=== PATIENT | male | born 1950 | race African-American/Black ===

== ENCOUNTER 2016-07-28 12:01 | Emergency (ER) | payer MEDICAID ==
[~2016-07-28] VITALS: Ht 190.5 cm; Wt 98.0 kg
[2016-07-28 12:12] VITALS: BP 114/60
[2016-07-28] MEDS ORDERED: MORPHINE SULFATE INJ 10 MG/ML DISP.SYRIN ONE (12:31)
[2016-07-28] MEDS: MORPHINE SULFATE INJ 2 MG/ML DISP.SYRIN IM ONE (12:35)
== END 2016-07-28 12:49 | disposition home or self-care (01) ==
LOC: ER 12:03
DX: M25.562 Pain in left knee (principal); G89.29 Other chronic pain; M54.5 Low back pain; Z95.0 Presence of cardiac pacemaker; M19.90 Unspecified osteoarthritis, unspecified site
CPT/HCPCS: A4606; J2270; Z7610

== ENCOUNTER 2016-08-06 18:07 | Emergency (ER) | payer MEDICAID ==
[~2016-08-06] VITALS: Ht 185.4 cm; Wt 117.9 kg
--- NOTE | 2016-08-06 18:07 | NUR ---
bb ry 39 from home: hypoglycemia, unable to obtain reading. glucagon 1 mg in field. nad noted. vss. bs 26 currently, md aware. pt placed in gown and monitor. attempting iv line at this time. continue to monitor.
[2016-08-06] MEDS ORDERED: DEXTROSE 50%-WATER 50 ML DISP.SYRIN ONE (18:23)
[2016-08-06] MEDS ORDERED: DEXTROSE 50%-WATER 50 ML DISP.SYRIN IV ONE (18:30)
[2016-08-06 18:38] LABS: BASOPHILS % (AUTO) 0.7 % (0.0-2.0); EOSINOPHILS # (AUTO) 0.1 /CMM (0.0-0.7); EOSINOPHILS % (AUTO) 1.4 % (0.0-6.0); HEMATOCRIT 44 % (39-51); HEMOGLOBIN 14.5 g/dL (13.5-17.5); LYMPHOCYTES % (AUTO) 16.8 % (20.0-44.0); MEAN CORPUSCULAR HEMOGLOBIN 31 PG (26.0-33.0); MEAN CORPUSCULAR HGB CONC 33 g/dl (31.0-36.0); MEAN CORPUSCULAR VOLUME 93 fL (80-96); MONOCYTES # (AUTO) 0.7 /CMM (0.1-1.30); MONOCYTES % (AUTO) 12.1 % (2.0-12.0); NEUTROPHILS # (AUTO) 4.2 /CMM (1.8-8.9); PLATELET COUNT (AUTO) 136 /CMM (150-450); RDW COEFFICIENT OF VARIATION 15.6 (11.5-15.0); RED BLOOD CELL COUNT(AUTO) 4.71 MIL/uL (4.5-6.0)
--- NOTE | 2016-08-06 18:40 | NUR ---
pt more alert at this time, continue to monitor.
[2016-08-06 18:45] LABS: CALCIUM, SERUM 8.4 mg/dL (8.5-10.1); CREATININE 1.6 mg/dL (0.6-1.3); POTASSIUM 3.4 mmol/L (3.5-5.1)
[2016-08-06 18:51] LABS: ALBUMIN 3.1 g/dL (3.4-5.0); BILIRUBIN,DIRECT 0.2 mg/dL (0.0-0.2); BILIRUBIN,TOTAL 0.4 mg/dL (0.2-1.0); TOTAL PROTEIN, SERUM 7.4 g/dL (6.4-8.2)
--- NOTE | 2016-08-06 19:02 | NUR ---
RECEIVED REPORT FROM YEFRI OCHOA FOR UNRULY. PT NOTED AOX3. FRIEND AT BEDSIDE.
--- NOTE | 2016-08-06 19:15 | NUR ---
DR. KING SPEAKING TO PT REGARDING POC.
[2016-08-06 19:28] LABS: APPEARANCE,URINE Clear (CLEAR); BILIRUBIN,URINE Negative (NEGATIVE); BLOOD, URINE Small Ery/uL (NEGATIVE); COLOR,URINE Yellow (YELLOW); KETONES,URINE Negative (NEGATIVE); LEUKOCYTE ESTERASE ,URINE Negative (NEGATIVE); NITRITE, URINE Negative (NEGATIVE); PH,URINE 5.5 (5.0-8.0); PROTEIN,URINE 30 mg/dl (NEGATIVE); UGLUCOSE 100 MG/DL mg/dL (NEGATIVE); UROBILINOGEN,URINE 0.2 EU/dL (0.2)
[2016-08-06 19:54] LABS: ADD URINE CULTURE NO; BACTERIA,URINE Few /HPF (None Seen); SQUAMOUS EPITHELIAL CELL,UR Few /HPF (None Seen); WBC,URINE 0-2 /HPF (0-3)
[2016-08-06] MEDS ORDERED: HYDROCODONE/APAP 5/325MG 1 EACH TABLET ONE (20:11)
--- NOTE | 2016-08-06 20:28 | NUR ---
IV removed. Catheter intact and site benign. Pressure and 4x4 applied to site. No bleeding noted. Patient discharged to home in stable condition. Written and verbal after care instructions given. Patient verbalizes understanding of instruction. ambulatory with a steady gait
[2016-08-06 20:29] VITALS: BP 155/98
[2016-08-06] MEDS ORDERED: HYDROCODONE/APAP 5/325MG 1 EACH TABLET PO ONE (20:30)
== END 2016-08-06 20:29 | disposition home or self-care (01) ==
LOC: ER 18:09
DX: E11.649 Type 2 diabetes mellitus with hypoglycemia without coma (principal); E03.9 Hypothyroidism, unspecified; E78.00 Pure hypercholesterolemia, unspecified; E11.9 Type 2 diabetes mellitus without complications; I10 Essential (primary) hypertension; B19.20 Unspecified viral hepatitis C without hepatic coma; Z79.4 Long term (current) use of insulin; Z95.0 Presence of cardiac pacemaker
CPT/HCPCS: 36415; 80048; 80076; 81001; 82962; 85025; 93005; 96374; 99285; A4606; Z7610; 81000-TC

== ENCOUNTER 2016-08-26 08:56 | Emergency (ER) | payer MEDICAID ==
[~2016-08-26] VITALS: Ht 190.5 cm; Wt 109.3 kg
[2016-08-26 09:05] VITALS: BP 138/77
== END 2016-08-26 09:20 | disposition home or self-care (01) ==
LOC: ER 08:59
DX: Z76.0 Encounter for issue of repeat prescription (principal); E11.8 Type 2 diabetes mellitus with unspecified complications; E03.9 Hypothyroidism, unspecified; B19.20 Unspecified viral hepatitis C without hepatic coma; I10 Essential (primary) hypertension; Z95.0 Presence of cardiac pacemaker; Z79.4 Long term (current) use of insulin
CPT/HCPCS: A4606; Z7610

== ENCOUNTER 2016-10-21 14:31 | Emergency (ER) | payer MEDICAID ==
[~2016-10-21] VITALS: Ht 182.9 cm; Wt 86.2 kg
[2016-10-21 14:35] VITALS: BP 126/81
== END 2016-10-21 14:54 | disposition home or self-care (01) ==
LOC: ER 14:34
DX: Z76.0 Encounter for issue of repeat prescription (principal); I10 Essential (primary) hypertension; E11.9 Type 2 diabetes mellitus without complications; B19.20 Unspecified viral hepatitis C without hepatic coma; E03.9 Hypothyroidism, unspecified; Z79.4 Long term (current) use of insulin
CPT/HCPCS: A4606; Z7610

== ENCOUNTER 2016-11-30 21:53 | Emergency (ER) | payer MEDICAID ==
[~2016-11-30] VITALS: Ht 190.5 cm; Wt 105.7 kg
--- NOTE | 2016-11-30 22:10 | NUR ---
TO BED 4 AMBULATORY C/O NONRADIATING L SIDED CP WITH SOB X1 DAY. PT AAOX4 NO ACUTE DISTRESS NOTED, RESP EVEN AND UNLABORED. SKIN WARM, NONDIAPHORETIC. PLACE PT ON CARDIAC MONITORING, CONTINUOUS POX. PENDING ER MD WHALEN.
[2016-11-30] MEDS ORDERED: NITROGLYCERIN 0.4 MG/TAB BOTTLE SL ONE (22:30)
[2016-11-30] MEDS ORDERED: NITROGLYCERIN 0.4 MG/TAB BOTTLE ONE (22:35)
--- NOTE | 2016-11-30 22:39 | NUR ---
PT PAIN FREE AT THIS TIME.
[2016-11-30 22:44] LABS: BASOPHILS # (AUTO) 0.1 /CMM (0.0-0.2); BASOPHILS % (AUTO) 1.1 % (0.0-2.0); EOSINOPHILS # (AUTO) 0.2 /CMM (0.0-0.7); EOSINOPHILS % (AUTO) 2.6 % (0.0-6.0); HEMATOCRIT 42 % (39-51); HEMOGLOBIN 13.6 g/dL (13.5-17.5); LYMPHOCYTES # (AUTO) 2.2 /CMM (0.8-4.8); LYMPHOCYTES % (AUTO) 36.2 % (20.0-44.0); MEAN CORPUSCULAR HEMOGLOBIN 32 PG (26.0-33.0); MEAN CORPUSCULAR HGB CONC 32 g/dl (31.0-36.0); MEAN CORPUSCULAR VOLUME 97 fL (80-96); MONOCYTES % (AUTO) 16.6 % (2.0-12.0); NEUTROPHILS # (AUTO) 2.6 /CMM (1.8-8.9); NEUTROPHILS % (AUTO) 43.5 % (43.0-81.0); PLATELET COUNT (AUTO) 121 /CMM (150-450); RDW COEFFICIENT OF VARIATION 17.2 (11.5-15.0); RED BLOOD CELL COUNT(AUTO) 4.33 MIL/uL (4.5-6.0)
[2016-11-30 22:52] LABS: CALCIUM, SERUM 8.3 mg/dL (8.5-10.1); CREATININE 1.4 mg/dL (0.6-1.3); POTASSIUM 3.1 mmol/L (3.5-5.1)
[2016-11-30 22:55] LABS: INR 1.12 (0.87-1.13); PROTHROMBIN TIME 12.1 SECS (9.5-12.7)
[2016-11-30 23:01] LABS: TROPONIN I 0.128 ng/mL (0.00-0.056)
[2016-11-30] MEDS ORDERED: ASPIRIN 325 MG TABLET ONE (23:27)
[2016-11-30] MEDS ORDERED: POTASSIUM CHLORIDE 20 MEQ TAB.PRT.SR PO ONE ×3 (23:27→23:30)
[2016-11-30] MEDS ORDERED: ASPIRIN 325 MG TABLET PO ONE (23:30)
--- NOTE | 2016-11-30 23:44 | NUR ---
REPORT CALLED TO MASTER MECHANICYEFRI CERVANTES. PENDING HOSPITAL ADMISSION.
--- NOTE | 2016-12-01 00:08 | NUR ---
IV removed. Catheter intact and site benign. Pressure and 4x4 applied to site. No bleeding noted. Patient does not wish to proceed with medical care recommended by Dr. Ac). Patient given information related to possible complications, up to and including , which could occur as a result of leaving the hospital at this time. Patient verbalizes understanding of risks involved due to leaving against medical advice. Patient has signed AMA form. pt aaox4 no acute distress noted, resp even and unlabored. pt verbalized all risks explained to pt.
[2016-12-01 00:10] VITALS: BP 169/88
== END 2016-12-01 00:12 | disposition left against medical advice (07) ==
LOC: ER 21:55
DX: I11.0 Hypertensive heart disease with heart failure (principal); I50.9 Heart failure, unspecified; E11.9 Type 2 diabetes mellitus without complications; I21.4 Non-ST elevation (NSTEMI) myocardial infarction; B19.20 Unspecified viral hepatitis C without hepatic coma; E03.9 Hypothyroidism, unspecified; I10 Essential (primary) hypertension; I48.91 Unspecified atrial fibrillation; Z79.4 Long term (current) use of insulin; Z95.0 Presence of cardiac pacemaker; Z53.20 Procedure and treatment not carried out because of patient's decision for unspecified reasons
CPT/HCPCS: 36415; 71010; 80048; 83880; 84484; 85025; 85730; 87081; 93005; 99285; A4606; Z7610

== ENCOUNTER 2017-03-04 19:06 | Emergency (ER) | payer MEDICAID ==
[~2017-03-04] VITALS: Ht 190.5 cm; Wt 105.7 kg
--- NOTE | 2017-03-04 20:14 | NUR ---
PT BB SELF; COUGH, CONGESTION X 3 DAYS. PT ALSO C/O ABDOMINAL PAIN 11/30 PT IS IN NO ACUTE DISTRESS IN BED. PT PLACED ON 2L O2. PT PLACED ON MONITOR WITH V-PACING. PT HAS HIGH BLOOD PRESSURE @ 182/81 WITH PULSE @ 64. AWAITING MD ORDERS.
[2017-03-04 20:20] LABS: BASOPHILS % (AUTO) 0.4 % (0.0-2.0); EOSINOPHILS # (AUTO) 0.1 /CMM (0.0-0.7); EOSINOPHILS % (AUTO) 0.7 % (0.0-6.0); HEMATOCRIT 44 % (39-51); HEMOGLOBIN 14.3 g/dL (13.5-17.5); LYMPHOCYTES # (AUTO) 0.8 /CMM (0.8-4.8); LYMPHOCYTES % (AUTO) 6.9 % (20.0-44.0); MEAN CORPUSCULAR HEMOGLOBIN 32 PG (26.0-33.0); MEAN CORPUSCULAR HGB CONC 33 g/dl (31.0-36.0); MEAN CORPUSCULAR VOLUME 97 fL (80-96); MONOCYTES # (AUTO) 0.5 /CMM (0.1-1.30); MONOCYTES % (AUTO) 4.3 % (2.0-12.0); NEUTROPHILS # (AUTO) 9.7 /CMM (1.8-8.9); NEUTROPHILS % (AUTO) 87.7 % (43.0-81.0); PLATELET COUNT (AUTO) 133 /CMM (150-450); RDW COEFFICIENT OF VARIATION 14.2 (11.5-15.0); RED BLOOD CELL COUNT(AUTO) 4.47 MIL/uL (4.5-6.0); WHITE BLOOD COUNT (AUTO) 11.1 K/uL (4.3-11.0)
[2017-03-04 20:21] LABS: CALCIUM, SERUM 8.6 mg/dL (8.5-10.1); POTASSIUM 3.8 mmol/L (3.5-5.1)
[2017-03-04 20:27] LABS: BILIRUBIN,TOTAL 0.6 mg/dL (0.2-1.0); TOTAL PROTEIN, SERUM 7.1 g/dL (6.4-8.2)
[2017-03-04 20:40] LABS: APPEARANCE,URINE Clear (CLEAR); BILIRUBIN,URINE SMALL (NEGATIVE); BLOOD, URINE Trace-intact Ery/uL (NEGATIVE); COLOR,URINE Dark (YELLOW); KETONES,URINE Negative (NEGATIVE); LEUKOCYTE ESTERASE ,URINE Negative (NEGATIVE); NITRITE, URINE Negative (NEGATIVE); PROTEIN,URINE 30 mg/dl (NEGATIVE); UGLUCOSE Negative (NEGATIVE)
[2017-03-04 21:00] LABS: BACTERIA,URINE None seen /HPF (None Seen); SQUAMOUS EPITHELIAL CELL,UR Few /HPF (None Seen); WBC,URINE 0-2 /HPF (0-3)
[2017-03-04] MEDS ORDERED: ACETAMINOPHEN ES 500 MG TABLET ONE (21:01)
[2017-03-04 21:21] LABS: BAND % (MANUAL) 11 % (0.0-5.0); EOSINOPHILS % (MANUAL) 2 % (0-4); LYMPHOCYTES % (MANUAL) 7 % (16-48); MONOCYTES % (MANUAL) 7 % (0-11.0); NEUTROPHILS % (MANUAL) 73 (42-76)
[2017-03-04] MEDS: ACETAMINOPHEN 325 MG TABLET PO ONE (21:37)
[2017-03-04] MEDS: predniSONE 20 MG TABLET PO ONE (21:37)
[2017-03-04] MEDS ORDERED: predniSONE 20 MG TABLET ONE (21:37)
[2017-03-04] MEDS ORDERED: IPRATROPIUM NEB FS 0.5 MG/2.5 ML AMPUL.NEB ONE (21:52)
[2017-03-04] MEDS ORDERED: ALBUTEROL FS 2.5 MG/3 ML VIAL.NEB ONE (21:52)
[2017-03-04] MEDS: ALBUTEROL FS 2.5 MG/3 ML VIAL.NEB NEB ONE (22:47)
[2017-03-04] MEDS: IPRATROPIUM NEB FS 0.5 MG/2.5 ML AMPUL.NEB NEB ONE (22:47)
[2017-03-04 22:53] VITALS: BP 147/90
[2017-03-04] MEDS ORDERED: ACETAMINOPHEN ES 500 MG TABLET PO ONE (23:00)
[2017-03-08] MEDS ORDERED: ZOLP5TAB2 PO (11:28)
[2017-03-08] MEDS ORDERED: HYDR-552 PO (11:28)
[2017-03-08] MEDS ORDERED: LEVO500T15 PO (11:28)
== END 2017-03-04 22:53 | disposition home or self-care (01) ==
LOC: ER 19:10
DX: R05 Cough (principal); I48.91 Unspecified atrial fibrillation; I10 Essential (primary) hypertension; E11.9 Type 2 diabetes mellitus without complications; E03.9 Hypothyroidism, unspecified; B19.20 Unspecified viral hepatitis C without hepatic coma; E78.00 Pure hypercholesterolemia, unspecified; Z79.82 Long term (current) use of aspirin; Z95.0 Presence of cardiac pacemaker; Z87.891 Personal history of nicotine dependence
CPT/HCPCS: 36415; 71010-TC; 80053-TC; 81000-TC; 85025-TC; A4606; Z7610

== ENCOUNTER 2017-03-06 10:33 | Inpatient (IN) | payer MEDICAID ==
[~2017-03-06] VITALS: Ht 190.5 cm; Wt 108.0 kg
[2017-03-06] MEDS ORDERED: IPRATROPIUM NEB FS 0.5 MG/2.5 ML AMPUL.NEB NEB ONE (11:00)
[2017-03-06] MEDS ORDERED: ALBUTEROL FS 2.5 MG/3 ML VIAL.NEB NEB ONE (11:00)
--- NOTE | 2017-03-06 11:00 | NUR ---
pt to er bed 09 c/o sob, chest pain x 3 days. on his 2nd day on antibiotics for bronchitis. gowned and placed on monitor. stable vitals. awaiting md smith.
--- NOTE | 2017-03-06 11:07 | NUR ---
iv line started blood drawn and sent to lab.
[2017-03-06] MEDS ORDERED: ALBUTEROL FS 2.5 MG/3 ML VIAL.NEB ONE (11:11)
[2017-03-06] MEDS ORDERED: IPRATROPIUM NEB FS 0.5 MG/2.5 ML AMPUL.NEB ONE (11:11)
[2017-03-06 11:15] LABS: BASOPHILS # (AUTO) 0.1 /CMM (0.0-0.2); BASOPHILS % (AUTO) 0.5 % (0.0-2.0); EOSINOPHILS % (AUTO) 0.1 % (0.0-6.0); HEMATOCRIT 44 % (39-51); HEMOGLOBIN 14.4 g/dL (13.5-17.5); LYMPHOCYTES # (AUTO) 0.5 /CMM (0.8-4.8); LYMPHOCYTES % (AUTO) 3.6 % (20.0-44.0); MEAN CORPUSCULAR HEMOGLOBIN 32 PG (26.0-33.0); MEAN CORPUSCULAR HGB CONC 33 g/dl (31.0-36.0); MEAN CORPUSCULAR VOLUME 97 fL (80-96); MONOCYTES # (AUTO) 0.2 /CMM (0.1-1.30); MONOCYTES % (AUTO) 1.4 % (2.0-12.0); NEUTROPHILS # (AUTO) 12.4 /CMM (1.8-8.9); NEUTROPHILS % (AUTO) 94.4 % (43.0-81.0); PLATELET COUNT (AUTO) 100 /CMM (150-450); RDW COEFFICIENT OF VARIATION 14.6 (11.5-15.0); RED BLOOD CELL COUNT(AUTO) 4.51 MIL/uL (4.5-6.0); WHITE BLOOD COUNT (AUTO) 13.2 K/uL (4.3-11.0)
--- NOTE | 2017-03-06 11:15 | NUR ---
rt at bedside for breathing treatment.
[2017-03-06 11:27] LABS: CREATININE 2.2 mg/dL (0.6-1.3)
[2017-03-06 11:28] LABS: INR 1.3 (0.87-1.13); PROTHROMBIN TIME 13.5 SECS (9.5-12.7)
[2017-03-06 11:32] LABS: TROPONIN I 0.078 ng/mL (0.00-0.056)
[2017-03-06 11:40] LABS: ALBUMIN 2.6 g/dL (3.4-5.0); BILIRUBIN,DIRECT 0.9 mg/dL (0.0-0.2); BILIRUBIN,TOTAL 1.2 mg/dL (0.2-1.0)
[2017-03-06] MEDS ORDERED: LEVO150T8 PO (11:59)
[2017-03-06] MEDS ORDERED: ASPI-991 PO (11:59)
[2017-03-06] MEDS ORDERED: CARB200T8 PO (11:59)
[2017-03-06] MEDS ORDERED: LISI40TA4 PO (11:59)
[2017-03-06] MEDS ORDERED: TRAZ-147 PO (11:59)
[2017-03-06] MEDS ORDERED: NPH,100V SQ (11:59)
[2017-03-06] MEDS ORDERED: CARV25TA2 PO (11:59)
[2017-03-06] MEDS ORDERED: POTA20TA83 PO (11:59)
[2017-03-06] MEDS ORDERED: HYDR25TA4 PO (11:59)
[2017-03-06] MEDS ORDERED: CEFTRIAXONE 1GM BAG (ER ONLY) 1 GM/50 ML PIGGYBACK IV ONE (12:00)
[2017-03-06] MEDS ORDERED: ASPIRIN 325 MG TABLET PO ONE (12:00)
[2017-03-06] MEDS ORDERED: CEFTRIAXONE 1GM BAG (ER ONLY) 50 ML IV ONE (12:02)
[2017-03-06] MEDS ORDERED: ASPIRIN 325 MG TABLET ONE (12:02)
[2017-03-06] MEDS ORDERED: FUROSEMIDE 40 MG/4 ML VIAL ONE (12:05)
--- NOTE | 2017-03-06 12:22 | NUR ---
tech at bedside for blood culture draw.
[2017-03-06] MEDS ORDERED: FUROSEMIDE 40 MG/4 ML VIAL IV ONE (12:30)
--- NOTE | 2017-03-06 12:56 | NUR ---
CALLED DR SIMMONS FOR PANEL
--- NOTE | 2017-03-06 13:01 | NUR ---
TELE 314-2
--- NOTE | 2017-03-06 13:20 | NUR ---
report given to mundo. pt awaiting transfer to floor.
--- NOTE | 2017-03-06 13:50 | NUR ---
TELE ADMIT FROM ER AFTER REPORT RECEIVED FROM TD ASIF. PATIENT ORIENTED TO PRIMARY RN, UNIT, ROOM, AND UNIT POLICIES REGARDING PATIENT CARE AND VISITING HOURS. PATIENT NOW ON CONTINUOUS TELEMETRY MONITORING; READING ON ARRIVAL IS VPACE 60. PATIENT PLACED ON BEDSIDE OXYGEN, WEIGHED BY BEDSCALE AND ENCOURAGED TO CALL IF THEY NEED ANYTHING. ALL QUESTIONS AND CONCERNS ADDRESSED, PATIENT VERBALIZED UNDERSTANDING.
[2017-03-06] MEDS ORDERED: ZOLPIDEM TARTRATE 5 MG TABLET PO PRN (14:00)
[2017-03-06] MEDS ORDERED: Z GUARD REMEDY 2 OZ OINT TP PRN (14:00)
[2017-03-06] MEDS ORDERED: MAGNESIUM HYDROXIDE 30 ML UDC PO PRN (14:00)
[2017-03-06] MEDS ORDERED: ONDANSETRON HCL/PF 4 MG/2 ML VIAL IVP PRN (14:00)
[2017-03-06] MEDS ORDERED: DEXTROSE 50%-WATER 50 ML DISP.SYRIN IV PRN (14:00)
[2017-03-06] MEDS ORDERED: ACETAMINOPHEN 325 MG TABLET PO PRN (14:00)
[2017-03-06] MEDS ORDERED: MAG HYDROX/AL HYDROX/SIMETH 30 ML UDC PO PRN (14:00)
[2017-03-06] MEDS ORDERED: ALBUTEROL SULFATE 8 GM HFA.AER.AD IH PRN (14:00)
[2017-03-06 16:00] VITALS: BP 127/73
[2017-03-06] MEDS: CARBAMAZEPINE 200 MG TABLET PO SCH (17:02)
[2017-03-06] MEDS: BLOOD SUGAR DIAGNOSTIC 1 EACH STRIP VI SCH ×2 (17:05→21:28)
[2017-03-06] MEDS: INSULIN REGULAR, HUMAN 100 UNIT/ML 3 ML VIAL SQ PRN (17:05)
--- NOTE | 2017-03-06 18:53 | NUR ---
CHANGE OF SHIFT REPORT PT RESTING COMFORTABLY IN BED. NO S/S OR C/O PAIN OR DISTRESS NOTED. SIDE RAILS UP X2. CALL LIGHT LEFT WITHIN REACH. PT KEPT CLEAN, DRY, AND COMFORTABLE. NO SIGNIFICANT CHANGES SINCE ADMISSION. WILL GIVE REPORT TO NAHUN ASIF.
[2017-03-06 20:00] VITALS: BP 107/58
--- NOTE | 2017-03-06 20:00 | NUR ---
RN NOTES PATIENT IN BED, ON HIGH FOWLERS, WITH EPISODES OF SOB ON EXERTION, TOLERATING ROOM AIR AT THIS TIME, IRB925%. O2 VIA NC AT 2LPM IS AVAILABLE WHEN NEEDED. PATIENT KNOWS WHEN TO PUT IT ON. ALERT AND ORIENTED X4, DENIES ANY PAIN AT THIS TIME, ABDOMEN SOFT AND NON-TENDER, ACTIVE BOWEL SOUNDS, LEFT WRIST SALINE LOCK IS PATENT AND SECURED WITH DRESSING. PATIENT RECEIVED DIURETICS FROM AM SHIFT AND HAS BEEN VOIDING VIA URINAL. UNSTEADY GAIT, PREFERS TO STAY IN BED DUE TO SOB ON EXERTION, NEEDS ATTENDED, CALL LIGHT WITHIN REACH.
[2017-03-06] MEDS ORDERED: ENOXAPARIN SODIUM 40 MG/0.4 ML DISP.SYRIN SQ SCH (21:00)
[2017-03-06] MEDS: TRAZODONE 50 MG TABLET PO SCH (21:27)
[2017-03-06] MEDS: FUROSEMIDE 40 MG/4 ML VIAL IV SCH (21:27)
[2017-03-06] MEDS: *INSULIN REGULAR(HUMULIN R)HUM 100 UNIT/ML VIAL SQ PRN (21:40)
[2017-03-07] VITALS: BP 118/73
[2017-03-07 04:00] VITALS: BP 121/53
[2017-03-07] MEDS: BLOOD SUGAR DIAGNOSTIC 1 EACH STRIP VI SCH ×4 (06:35→22:17)
[2017-03-07] MEDS: INSULIN REGULAR, HUMAN 100 UNIT/ML 3 ML VIAL SQ PRN ×3 (06:39→17:41)
[2017-03-07 06:50] VITALS: BP 121/55
[2017-03-07 07:28] LABS: BASOPHILS % (AUTO) 0.1 % (0.0-2.0); EOSINOPHILS % (AUTO) 0.1 % (0.0-6.0); HEMATOCRIT 40 % (39-51); HEMOGLOBIN 12.9 g/dL (13.5-17.5); LYMPHOCYTES % (AUTO) 5.6 % (20.0-44.0); MEAN CORPUSCULAR HEMOGLOBIN 32 PG (26.0-33.0); MEAN CORPUSCULAR HGB CONC 33 g/dl (31.0-36.0); MEAN CORPUSCULAR VOLUME 98 fL (80-96); MONOCYTES # (AUTO) 0.7 /CMM (0.1-1.30); MONOCYTES % (AUTO) 4.3 % (2.0-12.0); NEUTROPHILS # (AUTO) 15.6 /CMM (1.8-8.9); NEUTROPHILS % (AUTO) 89.9 % (43.0-81.0); PLATELET COUNT (AUTO) 102 /CMM (150-450); RDW COEFFICIENT OF VARIATION 15.5 (11.5-15.0); RED BLOOD CELL COUNT(AUTO) 4.02 MIL/uL (4.5-6.0); WHITE BLOOD COUNT (AUTO) 17.3 K/uL (4.3-11.0)
[2017-03-07 07:55] LABS: CALCIUM, SERUM 8.6 mg/dL (8.5-10.1); MAGNESIUM 1.8 mg/dL (1.8-2.4); PHOSPHORUS 2.9 mg/dL (2.5-4.9); POTASSIUM 3.8 mmol/L (3.5-5.1)
--- NOTE | 2017-03-07 08:00 | NUR ---
GROMMET WORKER NOTES PATIENT IN BED RESTING NO SOB OR ACUTE DISTRESS NOTED. PATIENT ALERT, ORIENTED X3. PERIPHERAL IV INTACT PATENT. PATIENT IN STABLE CONDITION WILL CONTINUE TO MONITOR.
[2017-03-07] MEDS: ASPIRIN EC 81 MG TABLET.DR PO SCH (08:48)
[2017-03-07] MEDS: LEVOTHYROXINE SODIUM 75 MCG TABLET PO SCH (08:48)
[2017-03-07] MEDS: CARBAMAZEPINE 200 MG TABLET PO SCH ×2 (08:48→17:40)
[2017-03-07] MEDS: INSULIN NPH, HUMAN ISOPHANE 100 UNIT/ML VIAL SQ SCH (08:54)
[2017-03-07] MEDS: FUROSEMIDE 40 MG/4 ML VIAL IV SCH ×2 (08:57→20:46)
[2017-03-07] MEDS ORDERED: POTASSIUM CHLORIDE 20 MEQ TAB.PRT.SR PO SCH (09:00)
[2017-03-07] MEDS ORDERED: ALBUTEROL FS 2.5 MG/0.5 ML VIAL.NEB NEB PRN (10:00)
[2017-03-07] MEDS: CEFTRIAXONE 1 G in IV D5W 50 ML IV SCH (12:41)
[2017-03-07] MEDS: ALBUTEROL FS 2.5 MG/3 ML VIAL.NEB NEB PRN ×2 (13:11→19:56)
[2017-03-07] MEDS: HYDROCODONE/APAP 5/325MG 1 EACH TABLET PO PRN ×2 (14:47→20:45)
--- NOTE | 2017-03-07 15:00 | NUR ---
MS RN NOTES PATIENT SEEN AND EVALUATED BY DR. SIMMONS ORDERS NOTED AND CARRIED OUT.
[2017-03-07 16:00] VITALS: BP 116/85
--- NOTE | 2017-03-07 18:46 | NUR ---
MS RN NOTES PATIENT IN BED RESTING NO SOB OR ACUTE DISTRESS NOTED. ALL DUE MEDICATIONS ADMINISTERED. ALL NEEDS MET. PATIENT IN STABLE CONDITION , PERIPHERAL IV INTACT PATENT. WILL ENDORSE TO PM SHIFT UNRULY.
[2017-03-07 20:00] VITALS: BP 160/108
[2017-03-07] MEDS: TRAZODONE 50 MG TABLET PO SCH (22:17)
[2017-03-07] MEDS: *INSULIN REGULAR(HUMULIN R)HUM 100 UNIT/ML VIAL SQ PRN (23:29)
--- NOTE | 2017-03-08 06:42 | NUR ---
MS RN NOTES AWAKE & RESPONSIVE. NOT IN ANY DISTRESS. NO SOB NOTED. DENIES ANY PAIN OR DISCOMFORT AT THIS TIME. WITH IV-HL PATENT & INTACT. MONITORED ACCORDINGLY. CALL LIGHT WITHIN REACH. BED IN LOWEST POSITION. SR UP X 2 FOR SAFETY. WILL ENDORSE TO NEXT SHIFT.
[2017-03-08] MEDS: BLOOD SUGAR DIAGNOSTIC 1 EACH STRIP VI SCH ×2 (06:45→12:29)
--- NOTE | 2017-03-08 07:40 | NUR ---
MS/RN OPENING NOTE PATIENT RECEIVED IN BED ASLEEP IN STABLE CONDITION. EASILY AROUSABLE. A/O X 4. NO SIGNS OF ACUTE DISTRESS. NO COMPLAIN OF PAIN OR DISCOMFORT. ALL NEEDS ATTENDED TO. CALL LIGHT WITHIN REACH. WILL CONTINUE TO MONITOR TO ENSURE SAFETY.
[2017-03-08 08:00] VITALS: BP 152/78
[2017-03-08] MEDS: CARBAMAZEPINE 200 MG TABLET PO SCH (08:23)
[2017-03-08] MEDS: LEVOTHYROXINE SODIUM 75 MCG TABLET PO SCH (08:32)
[2017-03-08] MEDS: ASPIRIN EC 81 MG TABLET.DR PO SCH (08:32)
[2017-03-08] MEDS: INSULIN NPH, HUMAN ISOPHANE 100 UNIT/ML VIAL SQ SCH (08:33)
--- NOTE | 2017-03-08 08:37 | NUR ---
MS/RN SEEN BY DR TSANG PATIENT SEEN BY DR TSANG WITH NEW ORDERS FOR HYDRALAZINE 50 MG PO TID FOR HTN.
[2017-03-08] MEDS: FUROSEMIDE 40 MG/4 ML VIAL IV SCH (08:42)
[2017-03-08] MEDS: HYDROCODONE/APAP 5/325MG 1 EACH TABLET PO PRN ×2 (08:42→12:54)
[2017-03-08] MEDS: hydrALAZINE HCL 50 MG TABLET PO SCH ×2 (09:00→12:29)
[2017-03-08 11:03] LABS: CALCIUM, SERUM 9.1 mg/dL (8.5-10.1); CREATININE 1.7 mg/dL (0.6-1.3); POTASSIUM 4.1 mmol/L (3.5-5.1)
[2017-03-08 11:04] LABS: BASOPHILS % (AUTO) 0.4 % (0.0-2.0); EOSINOPHILS % (AUTO) 0.4 % (0.0-6.0); HEMATOCRIT 44 % (39-51); HEMOGLOBIN 14.4 g/dL (13.5-17.5); LYMPHOCYTES # (AUTO) 1.2 /CMM (0.8-4.8); LYMPHOCYTES % (AUTO) 12.5 % (20.0-44.0); MEAN CORPUSCULAR HEMOGLOBIN 32 PG (26.0-33.0); MEAN CORPUSCULAR HGB CONC 33 g/dl (31.0-36.0); MEAN CORPUSCULAR VOLUME 98 fL (80-96); MONOCYTES # (AUTO) 0.9 /CMM (0.1-1.30); MONOCYTES % (AUTO) 10.2 % (2.0-12.0); NEUTROPHILS % (AUTO) 76.5 % (43.0-81.0); PLATELET COUNT (AUTO) 124 /CMM (150-450); RDW COEFFICIENT OF VARIATION 15.4 (11.5-15.0); RED BLOOD CELL COUNT(AUTO) 4.47 MIL/uL (4.5-6.0); WHITE BLOOD COUNT (AUTO) 9.2 K/uL (4.3-11.0)
[2017-03-08 11:14] LABS: ALBUMIN 2.4 g/dL (3.4-5.0); BILIRUBIN,TOTAL 0.6 mg/dL (0.2-1.0); MAGNESIUM 1.8 mg/dL (1.8-2.4); PHOSPHORUS 4.4 mg/dL (2.5-4.9); TOTAL PROTEIN, SERUM 7.7 g/dL (6.4-8.2)
[2017-03-08 11:20] LABS: THYROID STIMULATING HORMONE 9.195 uIU/mL (0.358-3.74)
[2017-03-08] MEDS ORDERED: HYDR-552 PO (11:28)
[2017-03-08] MEDS ORDERED: LEVO500T15 PO (11:28)
[2017-03-08] MEDS ORDERED: ZOLP5TAB2 PO (11:28)
[2017-03-08] MEDS ORDERED: METOPROLOL SUCCINATE 25 MG TAB.SR.24H PO SCH (11:30)
[2017-03-08 12:29] VITALS: BP 168/89
[2017-03-08] MEDS: CEFTRIAXONE 1 G in IV D5W 50 ML IV SCH (12:29)
[2017-03-08] MEDS: INSULIN REGULAR, HUMAN 100 UNIT/ML 3 ML VIAL SQ PRN (12:54)
[2017-03-08 13:10] LABS: BAND % (MANUAL) 5 % (0.0-5.0); LYMPHOCYTES % (MANUAL) 10 % (16-48); MONOCYTES % (MANUAL) 4 % (0-11.0); NEUTROPHILS % (MANUAL) 81 (42-76)
--- NOTE | 2017-03-08 15:00 | NUR ---
MS/RPG PROGRAMMER ANALYST PATIENT DISCHARGE HOME IN STABLE CONDITION. A/O X 4. NO SIGNS OF ACUTE DISTRESS. NO COMPLAIN OF PAIN OR DISCOMFORT. DISCHARGE INSTRUCTIONS AND EDUCATION PROVIDED, VERBALIZED UNDERSTANDING OF TEACHING. ALSO MADE AWARE TO FOLLOW UP WITH PRIMARY DOCTOR WITHIN A WE[place] AND CONTINUE TO TAKE MEDICATIONS ORDERED. ALL NEEDS ATTENDED TO. IV LINE REMOVED. LEFT IN STABLE CONDITION VIA PRIVATE CAR ACCOMPANIED BY FRIEND
== END 2017-03-08 15:00 | disposition home or self-care (01) | DRG 139 ==
LOC: ER 10:36 → TELE 13:16 → MED 03-07 11:36
PROVIDERS: ADMIT Internal Medicine; ATTEND Internal Medicine
DX: J15.9 Unspecified bacterial pneumonia (principal); I21.4 Non-ST elevation (NSTEMI) myocardial infarction; N17.0 Acute kidney failure with tubular necrosis; I11.0 Hypertensive heart disease with heart failure; I50.9 Heart failure, unspecified; E11.9 Type 2 diabetes mellitus without complications; E03.9 Hypothyroidism, unspecified; J45.909 Unspecified asthma, uncomplicated; F17.210 Nicotine dependence, cigarettes, uncomplicated; E78.5 Hyperlipidemia, unspecified; I48.91 Unspecified atrial fibrillation; Z79.4 Long term (current) use of insulin; Z95.0 Presence of cardiac pacemaker; E66.9 Obesity, unspecified; Z68.29 Body mass index [BMI] 29.0-29.9, adult; Z86.19 Personal history of other infectious and parasitic diseases
CPT/HCPCS: 36415; 71010-TC; 76770-TC; 80048-TC; 80053-TC; 80076-TC; 82962-TC; 83735-TC; 83880; 84100-TC; 84439-TC; 84443-TC; 84484-TC; 85025-TC; 85730-TC; 87040-TC; 87081-TC; 87186-TC; 93307-TC; J0696; J1815; J1940; J7050; J7060

== ENCOUNTER 2017-08-23 22:47 | Emergency (ER) | payer BC, MEDICAID ==
[~2017-08-23] VITALS: Ht 182.9 cm; Wt 90.7 kg
[~2017-08-23 22:47] MED LIST: ASPI-1152 PO; CARB200T8 PO; CARV25TA2 PO; HYDR-552 PO; HYDR25TA4 PO; LEVO150T8 PO; LEVO500T75 PO; NPH,100V SQ; POTA20TA83 PO; TRAZ-214 PO; ZOLP5TAB2 PO
--- NOTE | 2017-08-23 22:54 | NUR ---
PT BB SELF FROM HOME C/O OF ABD PAIN X 3 DAYS. NONRADIATING. +N/D. -V. SKIN WNL. PT IS AAOX4. VSS. NO S/S OF ACUTE DISTRESS NOTED. RESP EVEN AND UNLABORED. PT PLACED ON SOCIAL WORK THERAPIST AND POX. PT SAFETY AND COMFORT MEASURES IN PLACE. BEDSIDE FOR EVAL.
[2017-08-23] MEDS ORDERED: PANTOPRAZOLE 40 MG VIAL ONE (23:08)
[2017-08-23] MEDS ORDERED: KETOROLAC TROMETHAMINE 15 MG/ML VIAL ONE (23:08)
[2017-08-23] MEDS ORDERED: ONDANSETRON HCL/PF 4 MG/2 ML VIAL ONE (23:08)
[2017-08-23] MEDS ORDERED: IV NS 0.9% 1,000 ML BAG IV ONE (23:30)
[2017-08-23] MEDS ORDERED: PANTOPRAZOLE 40 MG VIAL IV ONE (23:30)
[2017-08-23] MEDS ORDERED: KETOROLAC TROMETHAMINE INJ 30 MG/ML VIAL IV ONE (23:30)
[2017-08-23] MEDS ORDERED: ONDANSETRON HCL/PF 4 MG/2 ML VIAL IVP ONE (23:30)
--- NOTE | 2017-08-24 00:03 | NUR ---
UNABLE TO OBTAIN IV ACCESS AT THIS TIME. PER MD FLETCHER, HOLD OF ON IV UNTIL FURTHER NOTICE. NO S/S OF DISTRESS NOTED IN PT.
--- NOTE | 2017-08-24 00:03 | NUR ---
BLOOD SPECIMENS COLLECTED BY PHLEBOTOMY.
[2017-08-24 00:14] LABS: HEMATOCRIT 44 % (39-51); HEMOGLOBIN 14.6 g/dL (13.5-17.5); MEAN CORPUSCULAR HGB CONC 34 g/dl (31.0-36.0); MEAN CORPUSCULAR VOLUME 97 fL (80-96); NEUTROPHILS % (AUTO) 80.2 % (43.0-81.0); PLATELET COUNT (AUTO) 142 /CMM (150-450); RED BLOOD CELL COUNT(AUTO) 4.49 MIL/uL (4.5-6.0); WHITE BLOOD COUNT (AUTO) 10.9 K/uL (4.3-11.0)
[2017-08-24 00:15] LABS: BASOPHILS % (AUTO) 0.1 % (0.0-2.0); EOSINOPHILS % (AUTO) 0.7 % (0.0-6.0); LYMPHOCYTES % (AUTO) 9.1 % (20.0-44.0); MONOCYTES # (AUTO) 1.1 /CMM (0.1-1.30); MONOCYTES % (AUTO) 9.9 % (2.0-12.0); NEUTROPHILS # (AUTO) 8.8 /CMM (1.8-8.9)
[2017-08-24 00:18] LABS: APPEARANCE,URINE CLEAR (CLEAR); BILIRUBIN,URINE 1+ (NEGATIVE); BLOOD, URINE 2+ Ery/uL (NEGATIVE); COLOR,URINE YELLOW (YELLOW); KETONES,URINE TRACE (NEGATIVE); LEUKOCYTE ESTERASE ,URINE NEGATIVE (NEGATIVE); NITRITE, URINE NEGATIVE (NEGATIVE); PROTEIN,URINE 2+ mg/dl (NEGATIVE); UGLUCOSE TRACE mg/dL (NEGATIVE)
[2017-08-24 00:21] LABS: CALCIUM, SERUM 9.4 mg/dL (8.5-10.1); CREATININE 2.3 mg/dL (0.6-1.3); POTASSIUM 4.6 mmol/L (3.5-5.1)
--- NOTE | 2017-08-24 00:24 | NUR ---
PT TO CT
[2017-08-24 00:28] LABS: ALBUMIN 3.6 g/dL (3.4-5.0); BILIRUBIN,DIRECT 0.6 mg/dL (0.0-0.2); BILIRUBIN,TOTAL 1.4 mg/dL (0.2-1.0); TOTAL PROTEIN, SERUM 8.1 g/dL (6.4-8.2)
[2017-08-24 00:36] LABS: BACTERIA,URINE None seen /HPF (None Seen); SQUAMOUS EPITHELIAL CELL,UR Few /HPF (None Seen); WBC,URINE 0-2 /HPF (0-3)
[2017-08-24] MEDS ORDERED: HYDROMORPHONE INJ 2 MG/ML DISP.SYRIN IV ONE (01:00)
[2017-08-24] MEDS ORDERED: IV NS 0.9% 1,000 ML BAG IV ONE (01:00)
[2017-08-24] MEDS ORDERED: HYDROMORPHONE INJ 2 MG/ML DISP.SYRIN ONE (01:27)
--- NOTE | 2017-08-24 01:49 | NUR ---
DR. FLETCHER SPEAKING TO LAWRENCE PRADO REGARDING ADMISSION.
[2017-08-24] MEDS ORDERED: IV NS 0.9% 1,000 ML IV PRN (01:50)
[2017-08-24] MEDS ORDERED: MAGNESIUM HYDROXIDE 30 ML UDC PO PRN (02:00)
[2017-08-24] MEDS ORDERED: ONDANSETRON HCL/PF 4 MG/2 ML VIAL IVP PRN (02:00)
[2017-08-24] MEDS ORDERED: HYDROCODONE/APAP 5/325MG 1 EACH TABLET PO PRN (02:00)
[2017-08-24] MEDS ORDERED: ACETAMINOPHEN 325 MG TABLET PO PRN (02:00)
[2017-08-24] MEDS ORDERED: MAG HYDROX/AL HYDROX/SIMETH 30 ML UDC PO PRN (02:00)
[2017-08-24] MEDS ORDERED: HYDROMORPHONE INJ 2 MG/ML DISP.SYRIN IV PRN (02:00)
[2017-08-24] MEDS ORDERED: Z GUARD REMEDY 2 OZ OINT TP PRN (02:00)
--- NOTE | 2017-08-24 02:58 | NUR ---
IV removed. Catheter intact and site benign. Pressure and 4x4 applied to site. No bleeding noted. Patient does not wish to proceed with medical care recommended by Dr. FLETCHER. Patient given information related to possible complications, up to and including , which could occur as a result of leaving the hospital at this time. Patient verbalizes understanding of risks involved due to leaving against medical advice. Patient has signed AMA form. pt ambulatory with a steady gait with personal cane.
[2017-08-24 03:09] VITALS: BP 137/76
== END 2017-08-24 03:17 | disposition left against medical advice (07) ==
LOC: ER 22:49
DX: K85.90 Acute pancreatitis without necrosis or infection, unspecified (principal); E11.65 Type 2 diabetes mellitus with hyperglycemia; N28.9 Disorder of kidney and ureter, unspecified; F15.10 Other stimulant abuse, uncomplicated; I10 Essential (primary) hypertension; I48.91 Unspecified atrial fibrillation; E03.9 Hypothyroidism, unspecified; E78.00 Pure hypercholesterolemia, unspecified; F17.200 Nicotine dependence, unspecified, uncomplicated; Z95.0 Presence of cardiac pacemaker; Z79.4 Long term (current) use of insulin; Z86.19 Personal history of other infectious and parasitic diseases; Z79.82 Long term (current) use of aspirin
CPT/HCPCS: 36415; 71045; 74176; 80048; 80076; 80305; 81001; 83690; 85025; 96361; 96374; 96375; 99285; A4606; C9113; J1170; J1885; J2405; J7030 ×2; 81000-TC; Z7610

== ENCOUNTER 2017-08-24 13:36 | Inpatient (IN) | payer OTHER, MEDICAID ==
[~2017-08-24] VITALS: Ht 190.5 cm; Wt 94.3 kg
--- NOTE | 2017-08-24 08:00 | NUR ---
MS RN NOTES PATIENT IN BED RESTING NO SOB OR ACUTE DISTRESS NOTED. PERIPHERAL IV INTACT PATENT. PATIENT ALERT, ORIENTED X1 CONFUSED. BED IN LOW LOCKED POSITION. CALL LIGHT WITHIN REACH. SITTER AT BEDSIDE. WILL CONTINUE TO MONITOR. Addendum: 08/24/17 at 1920 by MIREILLE RIGGS RN ERROR WRONG PATIENT CHARTING.
--- NOTE | 2017-08-24 14:00 | NUR ---
AAOX3, CAME TO ER C/O DIFFUSE ABDOMINAL PAIN, PATIENT WAS SEEN HERE THIS AM FOR PANCREATITIS AND SIGNED AMA. RR IS EVEN AND UNLABORED WITH NAD NOTED. SKIN IS WARM AND DRY. AWAITING MD FOR EVAL.
[2017-08-24] MEDS ORDERED: IV NS 0.9% 1,000 ML BAG IV ONE (14:30)
[2017-08-24] MEDS ORDERED: ONDANSETRON HCL/PF 4 MG/2 ML VIAL IVP ONE (14:30)
[2017-08-24 14:57] LABS: BASOPHILS # (AUTO) 0.1 /CMM (0.0-0.2); BASOPHILS % (AUTO) 1.1 % (0.0-2.0); EOSINOPHILS % (AUTO) 0.7 % (0.0-6.0); HEMATOCRIT 40 % (39-51); HEMOGLOBIN 13.8 g/dL (13.5-17.5); LYMPHOCYTES # (AUTO) 0.9 /CMM (0.8-4.8); LYMPHOCYTES % (AUTO) 8.5 % (20.0-44.0); MEAN CORPUSCULAR HGB CONC 34 g/dl (31.0-36.0); MEAN CORPUSCULAR VOLUME 95 fL (80-96); MONOCYTES # (AUTO) 1.1 /CMM (0.1-1.30); MONOCYTES % (AUTO) 9.8 % (2.0-12.0); NEUTROPHILS # (AUTO) 8.8 /CMM (1.8-8.9); NEUTROPHILS % (AUTO) 79.9 % (43.0-81.0); PLATELET COUNT (AUTO) 120 /CMM (150-450); RDW COEFFICIENT OF VARIATION 14.9 (11.5-15.0); RED BLOOD CELL COUNT(AUTO) 4.26 MIL/uL (4.5-6.0)
[2017-08-24 15:07] LABS: CALCIUM, SERUM 8.9 mg/dL (8.5-10.1); POTASSIUM 4.6 mmol/L (3.5-5.1)
[2017-08-24 15:12] LABS: INR 1.15 (0.85-1.15)
[2017-08-24 15:14] LABS: ALBUMIN 3.2 g/dL (3.4-5.0); BILIRUBIN,DIRECT 0.7 mg/dL (0.0-0.2); BILIRUBIN,TOTAL 1.4 mg/dL (0.2-1.0); TOTAL PROTEIN, SERUM 7.5 g/dL (6.4-8.2)
[2017-08-24] MEDS ORDERED: ONDANSETRON HCL/PF 4 MG/2 ML VIAL ONE (15:14)
[2017-08-24] MEDS ORDERED: HYDROMORPHONE INJ 2 MG/ML DISP.SYRIN ONE (15:15)
--- NOTE | 2017-08-24 15:28 | NUR ---
[facility] PAGED, WILMER SCHNEIDER COMIC BOOK ARTIST
[2017-08-24] MEDS ORDERED: HYDROMORPHONE 1 MG/1 ML DISP.SYRIN IV ONE (15:30)
--- NOTE | 2017-08-24 15:30 | NUR ---
CALLED NURSING SUP. FOR MS BED
--- NOTE | 2017-08-24 16:21 | NUR ---
MS 314-2, WILMER SCHNEIDER ADMITTING
[2017-08-24] MEDS ORDERED: MAG HYDROX/AL HYDROX/SIMETH 30 ML UDC PO PRN (16:30)
[2017-08-24] MEDS ORDERED: MAGNESIUM HYDROXIDE 30 ML UDC PO PRN (16:30)
[2017-08-24] MEDS ORDERED: ONDANSETRON HCL/PF 4 MG/2 ML VIAL IVP PRN (16:30)
[2017-08-24] MEDS ORDERED: ACETAMINOPHEN 325 MG TABLET PO PRN (16:30)
[2017-08-24] MEDS ORDERED: Z GUARD REMEDY 2 OZ OINT TP PRN (16:30)
[2017-08-24] MEDS ORDERED: HYDROCODONE/APAP 5/325MG 1 EACH TABLET PO PRN (16:30)
--- NOTE | 2017-08-24 17:36 | NUR ---
REPORT GIVEN TO YEFRI GARZA FOR [facility] MS 314-2
[2017-08-24] MEDS: IV NS 0.9% 1,000 ML IV PRN (18:25)
--- NOTE | 2017-08-24 18:30 | NUR ---
MS RN NOTES RECEIVED PATIENT FROM ER. PATIENT ALERT, ORIENTED X3. NO SOB OR ACUTE DISTRESS NOTED. PERIPHERAL IV INTACT PATENT. PATIENT STARTED ON NS 75ML/HR. PATIENT DENIES ANY PAIN OR DISCOMFORT. PATIENT ORIENTED TO ROOM. CALL LIGHT WITHIN REACH. PATIENT AMBULATORY. WILL ENDORSE CARE TO PM SHIFT.
--- NOTE | 2017-08-24 19:15 | NUR ---
RN OPENING NOTES RECEIVED REPORT FROM MIREILLE. PT ARRIVED FROM THE ER. PT CAME INTO THE ER LAST NIGHT AND LEFT AMA, PT WAS READMITTED TODAY. PT IS ALERT AND ORIENTED. CURRENTLY NO COMPLAINTS OF PAIN, SOB OR DISTRESS AT THIS TIME. PT HAS A LEFT WRIST IV #24 RUNNING NS @75 ML/HR, PT TOLERATING WELL. PT ABLE TO AMBULATE, BUT OFFERED URINAL. ORIENTED THE PATIENT TO THE USE OF THE CALL LIGHT. PT LUNGS ARE CLEAR BILATERALLY. ALL PT BELONGINGS ACCOUNTED FOR AND DOCUMENTED. SAFETY PRECAUTIONS IN PLACE. BED IN LOWEST LOCKED POSITION, X2 SIDE RAILS UP, CALL LIGHT WITHIN REACH. WILL CONTINUE TO MONITOR.
[2017-08-24 20:00] VITALS: BP 129/64
[2017-08-24] MEDS: MORPHINE SULFATE INJ 4 MG/ML DISP.SYRIN IV PRN (21:09)
--- NOTE | 2017-08-24 21:09 | NUR ---
RN NOTES PT COMPLAINED OF ABD PAIN (/). WILL ADMINISTER PRN IV MORPHINE 1MG AND CONTINUE TO MONITOR.
[2017-08-25] MEDS: MORPHINE SULFATE INJ 4 MG/ML DISP.SYRIN IV PRN ×3 (02:53→20:16)
--- NOTE | 2017-08-25 02:53 | NUR ---
RN NOTES PT COMPLAINED OF ABD PAIN (12/31). WILL ADMINISTER PRN IV MORPHINE 1MG AND CONTINUE TO MONITOR.
[2017-08-25 02:54] VITALS: BP 169/79
--- NOTE | 2017-08-25 06:25 | NUR ---
RN CLOSING NOTES PT ALERT AND ORIENTED. PT RESTING IN BED. NO COMPLAINTS OF SOB AT THIS TIME. PT HAS A LEFT WRIST IV #24 RUNNING NS @75 ML/HR, PT TOLERATING WELL. PT ABLE TO AMBULATE, USES URINAL. ALL PATIENT NEEDS MET. SAFETY PRECAUTIONS IN PLACE. BED IN LOWEST LOCKED POSITION, X2 SIDE RAILS UP, CALL LIGHT WITHIN REACH. PER PHARMACY NEED ORDER CLARIFICATION FOR NICODERM 7MG, NICODERM 14MG, AMBIEN SCHEDULED FOR 1800, AND DESYREL (2200). WILL ENDORSE TO DAY SHIFT NURSE FOR CONTINUITY OF CARE.
[2017-08-25 06:41] LABS: BASOPHILS % (AUTO) 0.1 % (0.0-2.0); EOSINOPHILS % (AUTO) 0.5 % (0.0-6.0); HEMATOCRIT 39 % (39-51); HEMOGLOBIN 13.3 g/dL (13.5-17.5); LYMPHOCYTES % (AUTO) 8.8 % (20.0-44.0); MEAN CORPUSCULAR HGB CONC 34 g/dl (31.0-36.0); MEAN CORPUSCULAR VOLUME 96 fL (80-96); MONOCYTES # (AUTO) 1.4 /CMM (0.1-1.30); MONOCYTES % (AUTO) 12.4 % (2.0-12.0); NEUTROPHILS # (AUTO) 8.8 /CMM (1.8-8.9); NEUTROPHILS % (AUTO) 78.2 % (43.0-81.0); PLATELET COUNT (AUTO) 124 /CMM (150-450); RDW COEFFICIENT OF VARIATION 15.4 (11.5-15.0); RED BLOOD CELL COUNT(AUTO) 4.09 MIL/uL (4.5-6.0); WHITE BLOOD COUNT (AUTO) 11.3 K/uL (4.3-11.0)
[2017-08-25 06:53] LABS: CALCIUM, SERUM 8.6 mg/dL (8.5-10.1); CREATININE 1.4 mg/dL (0.6-1.3); MAGNESIUM 1.8 mg/dL (1.8-2.4); PHOSPHORUS 2.3 mg/dL (2.5-4.9); POTASSIUM 4.6 mmol/L (3.5-5.1)
[2017-08-25 06:59] LABS: THYROID STIMULATING HORMONE 8.866 uIU/mL (0.358-3.74)
[2017-08-25] MEDS: LEVOTHYROXINE SODIUM 75 MCG TABLET PO SCH (07:30)
[2017-08-25] MEDS ORDERED: LEVOTHYROXINE SODIUM 150 MCG TABLET PO SCH (07:30)
--- NOTE | 2017-08-25 07:44 | NUR ---
MS RN OPENING NOTES RECEIVED PATIENT IN STABLE CONDITION. IN NO APPARENT DISTRESS. BEDSIDE RAILS ARE UPX2. BED IS LOCKED AND LOWERED. CALL LIGHT IS WITHIN REACH. IV LINE IS INTACT AND PATENT. WILL CONTINUE TO MONITOR.
[2017-08-25 08:16] VITALS: BP 138/69
[2017-08-25] MEDS: PANTOPRAZOLE 40 MG VIAL IV SCH (08:42)
[2017-08-25] MEDS: CARVEDILOL 12.5 MG TABLET PO SCH ×2 (09:00→16:15)
[2017-08-25] MEDS: NICOTINE PATCH (7MG) 7 MG PATCH.TD24 TD SCH (09:00)
[2017-08-25] MEDS: POTASSIUM CHLORIDE 20 MEQ TAB.PRT.SR PO SCH (09:00)
[2017-08-25] MEDS ORDERED: INSULIN NPH, HUMAN ISOPHANE 100 UNIT/ML VIAL SQ SCH (09:00)
[2017-08-25] MEDS: CARBAMAZEPINE 200 MG TABLET PO SCH ×2 (09:00→16:15)
[2017-08-25] MEDS: ASPIRIN EC 81 MG TABLET.DR PO SCH (09:00)
[2017-08-25] MEDS: INSULIN NPH, HUMAN ISOPHANE 100 UNIT/ML CARTRIDGE SQ SCH (09:00)
[2017-08-25] MEDS: HYDROCHLOROTHIAZIDE 25 MG TABLET PO SCH (09:00)
[2017-08-25] MEDS ORDERED: NICOTINE PATCH (14MG) 14 MG PATCH.TD24 TD SCH (09:00)
--- NOTE | 2017-08-25 09:00 | NUR ---
PRN MORPHINE 1MG GIVEN TO PATIENT FOR ABDOMINAL PAIN.
[2017-08-25] MEDS ORDERED: Sodium Phosphate 15 MMOL in IV D5W 250 ML IV ONE (11:00)
--- NOTE | 2017-08-25 14:00 | NUR ---
STARTED A NEW IV ON PATIENT. NEW IV IS ON LEFT ANTECUBITAL #22. PREVIOUS IV DISCONTINUED ON LEFT WRIST #24.
[2017-08-25 16:18] VITALS: BP 129/67
[2017-08-25] MEDS ORDERED: ZOLPIDEM TARTRATE 5 MG TABLET PO SCH (18:00)
--- NOTE | 2017-08-25 18:20 | NUR ---
MS RN CLOSING NOTES PATIENT IS ALERT AND ORIENTED. IN NO APPARENT DISTRESS. BEDSIDE RAILS ARE UPX2. BED IS LOCKED AND LOWERED. CALL LIGHT IS WITHIN REACH. IV LINE IS INTACT AND PATENT. WILL ENDORSE CARE TO SALT PLANT OPERATOR NURSE FOR UNRULY.
[2017-08-25] MEDS ORDERED: MORPHINE SULFATE INJ 4 MG/ML DISP.SYRIN ONE (19:45)
--- NOTE | 2017-08-25 19:50 | NUR ---
MS RN INITIAL NOTE PT IS SITTING UP ON SIDE OF THE BED, A/O X4 ABLE TO MAKE NEEDS KNOWN. NO SIGNS OF SOB OR DISTRESS, BREATHING EVENLY AND UNLABORED ON RA. IV ACCESS IS INTACT AND PATENT. BED IS IN LOW AND LOCKED POSITION, CALL LIGHT WITHIN REACH. WILL ENDORSE TO DAYSHIFT
[2017-08-25 20:00] VITALS: BP 142/74
[2017-08-25] MEDS: IV NS 0.9% 1,000 ML IV PRN (20:17)
[2017-08-25] MEDS: TRAZODONE 50 MG TABLET PO SCH (21:22)
[2017-08-26] MEDS ORDERED: MORPHINE SULFATE INJ 4 MG/ML DISP.SYRIN ONE (02:05)
[2017-08-26] MEDS: MORPHINE SULFATE INJ 4 MG/ML DISP.SYRIN IV PRN (02:19)
--- NOTE | 2017-08-26 06:20 | NUR ---
PT IS IN BED RESTING. NO SIGNS OF SOB OR DISTRESS, BREATHING EVNELY AND UNLABORED. IV ACCESS IS INTACT AND PATENT. DENIES PAIN AT THIS TIME. NO ACUTE CHANGES THROUGHOUT THE SHIFT. ALL NEEDS WERE ANTICIPATED AND MET. BED IS IN LOW AND LOCKED POSITION, CALL LIGHT WITHIN REACH. WILL ENDORSE TO DAYSHIFT
[2017-08-26 06:36] LABS: CALCIUM, SERUM 8.9 mg/dL (8.5-10.1); CREATININE 1.1 mg/dL (0.6-1.3); MAGNESIUM 1.9 mg/dL (1.8-2.4); PHOSPHORUS 2.2 mg/dL (2.5-4.9); POTASSIUM 4.6 mmol/L (3.5-5.1)
[2017-08-26 06:39] LABS: BASOPHILS % (AUTO) 0.1 % (0.0-2.0); EOSINOPHILS % (AUTO) 0.3 % (0.0-6.0); HEMATOCRIT 38 % (39-51); HEMOGLOBIN 12.7 g/dL (13.5-17.5); MEAN CORPUSCULAR HGB CONC 34 g/dl (31.0-36.0); MEAN CORPUSCULAR VOLUME 96 fL (80-96); MONOCYTES # (AUTO) 1.1 /CMM (0.1-1.30); NEUTROPHILS # (AUTO) 6.4 /CMM (1.8-8.9); NEUTROPHILS % (AUTO) 74.6 % (43.0-81.0); PLATELET COUNT (AUTO) 138 /CMM (150-450); RDW COEFFICIENT OF VARIATION 15.3 (11.5-15.0); RED BLOOD CELL COUNT(AUTO) 3.91 MIL/uL (4.5-6.0); WHITE BLOOD COUNT (AUTO) 8.6 K/uL (4.3-11.0)
[2017-08-26] MEDS: LEVOTHYROXINE SODIUM 75 MCG TABLET PO SCH (07:25)
[2017-08-26 08:00] VITALS: BP 161/76
[2017-08-26] MEDS: HYDROCHLOROTHIAZIDE 25 MG TABLET PO SCH (08:40)
[2017-08-26] MEDS: ASPIRIN EC 81 MG TABLET.DR PO SCH (08:40)
[2017-08-26] MEDS: CARVEDILOL 12.5 MG TABLET PO SCH ×2 (08:40→16:36)
[2017-08-26] MEDS: CARBAMAZEPINE 200 MG TABLET PO SCH ×2 (08:41→16:36)
[2017-08-26] MEDS: POTASSIUM CHLORIDE 20 MEQ TAB.PRT.SR PO SCH (08:41)
[2017-08-26] MEDS: NICOTINE PATCH (7MG) 7 MG PATCH.TD24 TD SCH (08:41)
[2017-08-26] MEDS: PANTOPRAZOLE 40 MG VIAL IV SCH (08:48)
[2017-08-26] MEDS: INSULIN NPH, HUMAN ISOPHANE 100 UNIT/ML CARTRIDGE SQ SCH (08:58)
[2017-08-26] MEDS ORDERED: Sodium Phosphate 15 MMOL in IV D5W 250 ML IV ONE (09:30)
[2017-08-26] MEDS ORDERED: MORPHINE SULFATE INJ 4 MG/ML DISP.SYRIN IV PRN (10:30)
[2017-08-26 11:11] LABS: APPEARANCE,URINE CLEAR (CLEAR); BILIRUBIN,URINE 1+ (NEGATIVE); BLOOD, URINE NEGATIVE Ery/uL (NEGATIVE); COLOR,URINE DARK YELLO (YELLOW); KETONES,URINE 1+ (NEGATIVE); LEUKOCYTE ESTERASE ,URINE NEGATIVE (NEGATIVE); NITRITE, URINE NEGATIVE (NEGATIVE); PROTEIN,URINE TRACE mg/dl (NEGATIVE); UGLUCOSE 1+ mg/dL (NEGATIVE)
[2017-08-26 11:35] LABS: BACTERIA,URINE Rare /HPF (None Seen); SQUAMOUS EPITHELIAL CELL,UR Rare /HPF (None Seen); WBC,URINE 0-2 /HPF (0-3)
[2017-08-26 11:36] LABS: SPERM,URINE Few /HPF (None Seen)
[2017-08-26 16:00] VITALS: BP 161/76
--- NOTE | 2017-08-26 18:40 | NUR ---
MS RN CLOSING NOTES PATIENT IS IN STABLE CONDITION. IN NO APPARENT DISTRESS. NEW IV STARTED ON LEFT HAND #22. CALL LIGHT IS WITHIN REACH. ALL NEEDS WERE MET. IV LINE IS INTACT AND PATENT. BEDSIDE RAILS ARE UPX2. BED IS LOCKED AND LOWERED. WILL ENDORSE CARE TO COIL TIER NURSE FOR UNRULY.
--- NOTE | 2017-08-26 19:40 | NUR ---
MS RN INITIAL NOTE PT IS SITTING UP ON SIDE OF THE BED, WITH FRIEND AT BEDSIDE. A/O X4 ABLE TO MAKE NEEDS KNOWN. NO SIGNS OF SOB OR DISTRESS, BREATHING EVENLY AND UNLABORED ON RA. IV ACCESS IS INTACT AND PATENT. BED IS IN LOW AND LOCKED POSITION, CALL LIGHT WITHIN REACH. WILL CONTINUE TO MONITOR PT
[2017-08-26 20:00] VITALS: BP 143/77
[2017-08-26] MEDS: TRAZODONE 50 MG TABLET PO SCH (22:00)
--- NOTE | 2017-08-27 06:37 | NUR ---
MS RN NOTE PT IS IN BED RESTING. NO SIGNS OF SOB OR DISTRESS, BREATHING EVENLY AND UNLABORED. IV ACCESS IS INTACT AND PATENT. DENIES PAIN AT THIS TIME. NO ACUTE CHANGES THROUGHOUT THE SHIFT. ALL NEEDS WERE ANTICIPATED AND MET. BED IS IN LOW AND LOCKED POSITION, CALL LIGHT WITHIN REACH. WILL ENDORSE TO DAYSHIFT
[2017-08-27 08:00] VITALS: BP 158/79
--- NOTE | 2017-08-27 08:00 | NUR ---
m/s medical biller coder: initial assessment received pt in bed awake, a/ox4. ambulatory. tolerated clear liquid diet. no c/o abdominal pain, n/v. pt wants to go home. instructed to call for assistance. will monitor.
[2017-08-27 08:27] VITALS: BP 158/79
[2017-08-27] MEDS: HYDROCHLOROTHIAZIDE 25 MG TABLET PO SCH (08:27)
[2017-08-27] MEDS: ASPIRIN EC 81 MG TABLET.DR PO SCH (08:27)
[2017-08-27] MEDS: CARVEDILOL 12.5 MG TABLET PO SCH (08:27)
[2017-08-27] MEDS: POTASSIUM CHLORIDE 20 MEQ TAB.PRT.SR PO SCH (08:27)
[2017-08-27] MEDS: LEVOTHYROXINE SODIUM 75 MCG TABLET PO SCH (08:28)
[2017-08-27] MEDS: NICOTINE PATCH (7MG) 7 MG PATCH.TD24 TD SCH (08:28)
[2017-08-27] MEDS: CARBAMAZEPINE 200 MG TABLET PO SCH (08:31)
--- NOTE | 2017-08-27 08:40 | NUR ---
m/s driftman: notes pt wants to go home and wants his h/l remove now. h/l removed with tip intact with no bleeding, no redness, and no swelling noted. awaiting for md to make rounds. pt aware.
[2017-08-27] MEDS: INSULIN NPH, HUMAN ISOPHANE 100 UNIT/ML CARTRIDGE SQ SCH (08:46)
[2017-08-27] MEDS: PANTOPRAZOLE 40 MG VIAL IV SCH (08:46)
--- NOTE | 2017-08-27 10:00 | NUR ---
m/s automotive airconditioning mechanic: notes pt tolerated regular diet. natalia (mold cleaner) here and made aware.
--- NOTE | 2017-08-27 10:43 | NUR ---
m/s production mechanic: md visit seen and examined by natalia (enrico) with order to d'c pt with Discharge instructions <1. DC home, 2. f/u with PCP [place] [facility], 3. f/u with pain resource specialist teacher as scheduled, 4. cont nicotine patches/smoking cessation. order acknowledged.
--- NOTE | 2017-08-27 10:50 | NUR ---
m/s wringer and setter: d'c instructions discharged instructions given to pt and verbalized understanding. pt called his friend to pick him up.
--- NOTE | 2017-08-27 11:00 | NUR ---
m/s test director: discharged discharged home in stable condition with all belongings/valuables accompanied by friend via private car.
[2017-08-27] MEDS ORDERED: K PHOS NEUTRAL 250 MG TABLET PO ONE (11:30)
== END 2017-08-27 11:00 | disposition home or self-care (01) | DRG 438 ==
LOC: ER 13:37 → MED 16:38
PROVIDERS: ADMIT Registered Nurse; ATTEND Registered Nurse
DX: K85.90 Acute pancreatitis without necrosis or infection, unspecified (principal); N17.0 Acute kidney failure with tubular necrosis; I50.32 Chronic diastolic (congestive) heart failure; E44.1 Mild protein-calorie malnutrition; I13.0 Hypertensive heart and chronic kidney disease with heart failure and stage 1 through stage 4 chronic kidney disease, or unspecified chronic kidney disease; K86.1 Other chronic pancreatitis; G89.4 Chronic pain syndrome; E86.9 Volume depletion, unspecified; E11.22 Type 2 diabetes mellitus with diabetic chronic kidney disease; N18.9 Chronic kidney disease, unspecified; R74.0 Nonspecific elevation of levels of transaminase and lactic acid dehydrogenase [LDH]; E03.9 Hypothyroidism, unspecified; E78.5 Hyperlipidemia, unspecified; Z95.0 Presence of cardiac pacemaker; Z86.19 Personal history of other infectious and parasitic diseases; Z71.6 Tobacco abuse counseling; M79.2 Neuralgia and neuritis, unspecified; Z68.26 Body mass index [BMI] 26.0-26.9, adult; F17.210 Nicotine dependence, cigarettes, uncomplicated; E83.39 Other disorders of phosphorus metabolism; Z79.4 Long term (current) use of insulin
CPT/HCPCS: 36415; 80048-TC; 80061-TC; 80076-TC; 81000-TC; 82962-TC; 83690-TC; 83735-TC; 84100-TC; 84443-TC; 85025-TC; 85730-TC; 87081-TC; 87086-TC; A4606; A9563; C9113; J1170; J1815; J2270; J2405; J7030; J7060; Z7610

== ENCOUNTER 2017-11-26 01:14 | Emergency (ER) | payer MEDICAID, OTHER ==
[~2017-11-26] VITALS: Ht 190.5 cm; Wt 90.7 kg
[~2017-11-26 01:14] MED LIST changes: -LEVO500T75 PO; -ZOLP5TAB2 PO
[2017-11-26 01:16] VITALS: BP 171/83
== END 2017-11-26 01:33 ==
LOC: ER 01:15
DX: Z02.89 Encounter for other administrative examinations (principal); E11.9 Type 2 diabetes mellitus without complications; I10 Essential (primary) hypertension; E03.9 Hypothyroidism, unspecified; F17.200 Nicotine dependence, unspecified, uncomplicated; E78.00 Pure hypercholesterolemia, unspecified; Z95.0 Presence of cardiac pacemaker; Z86.19 Personal history of other infectious and parasitic diseases; Z79.4 Long term (current) use of insulin; Z79.82 Long term (current) use of aspirin; Z79.899 Other long term (current) drug therapy
CPT/HCPCS: 99283; A4606; Z7610

== ENCOUNTER 2018-01-23 18:42 | Emergency (ER) | payer OTHER, MEDICAID ==
[~2018-01-23] VITALS: Ht 190.5 cm; Wt 93.0 kg
[2018-01-23] MEDS ORDERED: DEXTROSE 50%-WATER 50 ML DISP.SYRIN ONE (18:57)
--- NOTE | 2018-01-23 19:02 | NUR ---
DR MENG MADE AWARE OF RECENT BLOOD SUGAR. D50 GIVEN IVP PPER ERMD VERBAL ORDER.
[2018-01-23 19:03] LABS: BASOPHILS # (AUTO) 0.1 /CMM (0.0-0.2); BASOPHILS % (AUTO) 1.3 % (0.0-2.0); EOSINOPHILS % (AUTO) 1.9 % (0.0-6.0); HEMATOCRIT 40 % (39-51); HEMOGLOBIN 13.2 g/dL (13.5-17.5); LYMPHOCYTES # (AUTO) 1.7 /CMM (0.8-4.8); LYMPHOCYTES % (AUTO) 32.6 % (20.0-44.0); MEAN CORPUSCULAR HGB CONC 33 g/dl (31.0-36.0); MEAN CORPUSCULAR VOLUME 98 fL (80-96); MONOCYTES # (AUTO) 0.6 /CMM (0.1-1.30); MONOCYTES % (AUTO) 10.9 % (2.0-12.0); NEUTROPHILS # (AUTO) 2.7 /CMM (1.8-8.9); NEUTROPHILS % (AUTO) 53.3 % (43.0-81.0); PLATELET COUNT (AUTO) 166 /CMM (150-450); RDW COEFFICIENT OF VARIATION 13.7 (11.5-15.0); RED BLOOD CELL COUNT(AUTO) 4.05 MIL/uL (4.5-6.0); WHITE BLOOD COUNT (AUTO) 5.2 K/uL (4.3-11.0)
[2018-01-23 19:10] LABS: CALCIUM, SERUM 8.6 mg/dL (8.5-10.1); POTASSIUM 3.6 mmol/L (3.5-5.1)
[2018-01-23 19:16] LABS: ALBUMIN 3.2 g/dL (3.4-5.0); BILIRUBIN,DIRECT 0.1 mg/dL (0.0-0.2); BILIRUBIN,TOTAL 0.5 mg/dL (0.2-1.0); TOTAL PROTEIN, SERUM 7.3 g/dL (6.4-8.2)
[2018-01-23 19:18] LABS: TROPONIN I 0.026 ng/mL (0.00-0.056)
[2018-01-23] MEDS ORDERED: IV NS 0.9% 1,000 ML BAG IV ONE (20:00)
[2018-01-23 23:04] VITALS: BP 140/81
== END 2018-01-23 23:05 | disposition home or self-care (01) ==
LOC: ER 18:45
DX: E11.649 Type 2 diabetes mellitus with hypoglycemia without coma (principal); I10 Essential (primary) hypertension; E03.9 Hypothyroidism, unspecified; E78.00 Pure hypercholesterolemia, unspecified; F17.200 Nicotine dependence, unspecified, uncomplicated; I48.0 Paroxysmal atrial fibrillation; Z86.19 Personal history of other infectious and parasitic diseases; Z79.82 Long term (current) use of aspirin; Z95.0 Presence of cardiac pacemaker; Z96.659 Presence of unspecified artificial knee joint
CPT/HCPCS: 36415; 80048; 80076; 82962 ×5; 83690; 84484; 85025; 93005; 96360; 99285; A4606; J7030; Z7610

== ENCOUNTER 2018-04-03 03:30 | Emergency (ER) | payer OTHER, MEDICAID ==
[~2018-04-03] VITALS: Ht 190.5 cm; Wt 88.9 kg
[~2018-04-03 03:30] MED LIST changes: +HYDR-4384 PO; -HYDR-552 PO
--- NOTE | 2018-04-03 04:05 | NUR ---
LT EYE IRRITATION, REDNESS S/P POSSIBLE FB X TODAY, TRIED TO REMOVE W/ QTIP SAW YELLOW DISCHARGE. PT IS AOX4, VSS, RESP EVEN AND UNLABORED. NO ACUTE DISTRESS NOTED. WAITING FOR ORDERS
--- NOTE | 2018-04-03 04:25 | NUR ---
MARGOTH LENS APPLIED TO LEFT EYE FOR IRRIGATION WITH 1L NS
[2018-04-03] MEDS ORDERED: FLUORESCEIN SODIUM OPHTH 1 EA STRIP ONE (04:56)
[2018-04-03] MEDS ORDERED: TETRACAINE HCL/PF 0.5% UD 2 ML BOTTLE ONE (04:57)
--- NOTE | 2018-04-03 04:58 | NUR ---
AT BEDSIDE FOR Fluorescein Eye Stain
--- NOTE | 2018-04-03 05:11 | NUR ---
Patient discharged to home in stable condition. Written and verbal after care instructions given. Patient verbalizes understanding of instruction.
[2018-04-03 05:12] VITALS: BP 138/84
== END 2018-04-03 05:14 | disposition home or self-care (01) ==
LOC: ER 03:30
DX: S05.02XA Injury of conjunctiva and corneal abrasion without foreign body, left eye, initial encounter (principal); I10 Essential (primary) hypertension; E11.9 Type 2 diabetes mellitus without complications; E03.9 Hypothyroidism, unspecified; F17.200 Nicotine dependence, unspecified, uncomplicated; Z95.0 Presence of cardiac pacemaker; Z87.19 Personal history of other diseases of the digestive system; Z79.4 Long term (current) use of insulin; Z79.82 Long term (current) use of aspirin; Z79.899 Other long term (current) drug therapy; X58.XXXA Exposure to other specified factors, initial encounter; Y93.89 Activity, other specified; Y92.89 Other specified places as the place of occurrence of the external cause; Y99.8 Other external cause status
CPT/HCPCS: A4606; J7030; Z7610

== ENCOUNTER 2018-06-09 21:17 | Emergency (ER) | payer OTHER, MEDICAID ==
[~2018-06-09] VITALS: Ht 182.9 cm; Wt 88.9 kg
[2018-06-09] MEDS ORDERED: DEXTROSE 50%-WATER 50 ML DISP.SYRIN ONE (21:24)
[2018-06-09] MEDS ORDERED: DEXTROSE 50%-WATER 50 ML DISP.SYRIN IV ONE (21:30)
--- NOTE | 2018-06-09 21:30 | NUR ---
Pt CRISTI pt was at [facility] c/o low BG. When ambulance arrived on site initial BG was at 29. Pt was given 1mg glucagon IM on the field. New BS on route was 45. Upon arrival pt was a/ox4, verbal, able to talk and answer questions. Pt denied having -CP, -SOB, -N/V. -Syncope. Pt being seen by MD at bedside. Will carry out MD orders. Will continue to monitor pt's condition.
[2018-06-09 21:33] LABS: BASOPHILS # (AUTO) 0.1 /CMM (0.0-0.2); BASOPHILS % (AUTO) 1.3 % (0.0-2.0); EOSINOPHILS % (AUTO) 2.5 % (0.0-6.0); HEMATOCRIT 39 % (39-51); HEMOGLOBIN 13.1 g/dL (13.5-17.5); LYMPHOCYTES # (AUTO) 2.2 /CMM (0.8-4.8); MEAN CORPUSCULAR HGB CONC 33 g/dl (31.0-36.0); MEAN CORPUSCULAR VOLUME 98 fL (80-96); MONOCYTES # (AUTO) 0.7 /CMM (0.1-1.30); MONOCYTES % (AUTO) 13.3 % (2.0-12.0); NEUTROPHILS % (AUTO) 39.9 % (43.0-81.0); PLATELET COUNT (AUTO) 179 /CMM (150-450); RED BLOOD CELL COUNT(AUTO) 4.04 MIL/uL (4.5-6.0)
--- NOTE | 2018-06-09 21:35 | NUR ---
BG CHECK 48. ADMINISTERED D50 PER MD ORDER. IV ACCESS STARTED ON RFA #18G. BLOOD DRAWN SENT TO LAB
[2018-06-09 21:46] LABS: CALCIUM, SERUM 8.9 mg/dL (8.5-10.1); CREATININE 1.4 mg/dL (0.6-1.3); POTASSIUM 3.1 mmol/L (3.5-5.1)
[2018-06-09] MEDS ORDERED: POTASSIUM CHLORIDE 20 MEQ TAB.PRT.SR PO ONE ×2 (23:00→23:29)
[2018-06-10] MEDS ORDERED: ACETAMINOPHEN ES 500 MG TABLET ONE (02:13)
[2018-06-10] MEDS ORDERED: ACETAMINOPHEN ES 500 MG TABLET PO ONE (02:30)
--- NOTE | 2018-06-10 02:35 | NUR ---
Pt PENDING DISCHARGE. Pt GAVE NUMBER OF FRIEND/ROOMMATE WHO CAN PICK HIM UP. #: [phone]. CALLED FRIEND ROBBY AND SAID HE IS ON HIS WAY TO THE ER.
--- NOTE | 2018-06-10 03:13 | NUR ---
Patient discharged to home in stable condition. Written and verbal after care instructions given. Patient verbalizes understanding of instruction. Patient's friend arrived to take pt back home. Patient left facility on wheelchair, accompanied by staff member. Pt was safely transported to car. IV access removed. Secured with tape & gauze. No signs of bleeding noted. No s/s of acute distress or sob noted. vs stable. ID band removed.
[2018-06-10 03:15] VITALS: BP 142/66
== END 2018-06-10 03:16 | disposition home or self-care (01) ==
LOC: ER 21:19
DX: E11.649 Type 2 diabetes mellitus with hypoglycemia without coma (principal); E87.6 Hypokalemia; I10 Essential (primary) hypertension; E03.9 Hypothyroidism, unspecified; F17.200 Nicotine dependence, unspecified, uncomplicated; R41.82 Altered mental status, unspecified; Z96.643 Presence of artificial hip joint, bilateral; Z95.0 Presence of cardiac pacemaker; Z96.653 Presence of artificial knee joint, bilateral; Z79.82 Long term (current) use of aspirin
CPT/HCPCS: 36415; 80048; 82962 ×4; 85025; 93005; 96374; 99284; A4606

== ENCOUNTER 2018-07-17 15:18 | Emergency (ER) | payer OTHER, MEDICAID ==
[~2018-07-17] VITALS: Ht 188 cm; Wt 83.5 kg
--- NOTE | 2018-07-17 15:35 | NUR ---
BIBRA39, HYPOGLYCEMIA BS OF 31, GLUCAGON GIVEN BY EMS. PT AAOX3, VSS. DENIES CP, SOB, N/V AT THIS TIME. PT SEEN & EVAL'D BY DR. DAVIS. WILL CONT TO MONITOR.
--- NOTE | 2018-07-17 16:40 | NUR ---
UNABLE TO ESTABLISH IV ACCESS, DR. DAVIS AWARE. GIVEN MEAL TRAY, KEVIN WELL.
--- NOTE | 2018-07-17 19:10 | NUR ---
MIDLINE IV ESTABLISHED ON RICO. LABS DRAWN & SENT TO LAB. PT ASLEEP, EASILY AWKEN BY VERBAL STIMULI. DENIES CP, SOB, DIZZINESS, N/V/D @ THIS TIME. WILL CONT TO MONITOR.
[2018-07-17 19:27] LABS: BASOPHILS % (AUTO) 0.9 % (0.0-2.0); EOSINOPHILS % (AUTO) 0.2 % (0.0-6.0); HEMATOCRIT 40 % (39-51); HEMOGLOBIN 13.2 g/dL (13.5-17.5); LYMPHOCYTES # (AUTO) 0.8 /CMM (0.8-4.8); LYMPHOCYTES % (AUTO) 17.5 % (20.0-44.0); MEAN CORPUSCULAR HGB CONC 33 g/dl (31.0-36.0); MEAN CORPUSCULAR VOLUME 96 fL (80-96); MONOCYTES # (AUTO) 0.2 /CMM (0.1-1.30); MONOCYTES % (AUTO) 4.4 % (2.0-12.0); NEUTROPHILS # (AUTO) 3.7 /CMM (1.8-8.9); PLATELET COUNT (AUTO) 172 /CMM (150-450); RED BLOOD CELL COUNT(AUTO) 4.12 MIL/uL (4.5-6.0); WHITE BLOOD COUNT (AUTO) 4.8 K/uL (4.3-11.0)
[2018-07-17 19:34] LABS: CALCIUM, SERUM 8.8 mg/dL (8.5-10.1); CREATININE 1.5 mg/dL (0.6-1.3); POTASSIUM 4.4 mmol/L (3.5-5.1)
[2018-07-17 19:40] LABS: BILIRUBIN,DIRECT 0.2 mg/dL (0.0-0.2); BILIRUBIN,TOTAL 0.4 mg/dL (0.2-1.0); TOTAL PROTEIN, SERUM 7.2 g/dL (6.4-8.2)
--- NOTE | 2018-07-17 20:36 | NUR ---
Patient discharged to home in stable condition. Written and verbal after care instructions given. Patient verbalizes understanding of instruction. MIDLINE IV removed. Catheter TIP intact and site benign. Pressure and 4x4 applied to site. No bleeding noted.
[2018-07-17 20:37] VITALS: BP 131/68
== END 2018-07-17 20:38 | disposition home or self-care (01) ==
LOC: ER 15:24
DX: E11.649 Type 2 diabetes mellitus with hypoglycemia without coma (principal); D64.9 Anemia, unspecified; I10 Essential (primary) hypertension; E03.9 Hypothyroidism, unspecified; I25.10 Atherosclerotic heart disease of native coronary artery without angina pectoris; F17.200 Nicotine dependence, unspecified, uncomplicated; Z95.0 Presence of cardiac pacemaker; Z96.649 Presence of unspecified artificial hip joint; Z96.659 Presence of unspecified artificial knee joint; Z79.4 Long term (current) use of insulin; Z79.82 Long term (current) use of aspirin; Z79.899 Other long term (current) drug therapy
CPT/HCPCS: 36415; 71045-TC; 80048-TC; 80076-TC; 82962-TC; 83690-TC; 85025-TC; G0480

== ENCOUNTER 2018-07-20 12:47 | Emergency (ER) | payer MEDICARE, MEDICAID ==
[~2018-07-20] VITALS: Ht 190.5 cm; Wt 88.9 kg
--- NOTE | 2018-07-20 13:22 | NUR ---
PT REC'D TO ER C/O AMD PAIN 10/30 AWAITING EVALUATION BY ER PROVIDER.
[2018-07-20 13:36] LABS: BASOPHILS # (AUTO) 0.1 /CMM (0.0-0.2); BASOPHILS % (AUTO) 2.1 % (0.0-2.0); EOSINOPHILS % (AUTO) 3.2 % (0.0-6.0); HEMATOCRIT 42 % (39-51); HEMOGLOBIN 13.9 g/dL (13.5-17.5); LYMPHOCYTES # (AUTO) 1.5 /CMM (0.8-4.8); LYMPHOCYTES % (AUTO) 39.3 % (20.0-44.0); MEAN CORPUSCULAR HGB CONC 33 g/dl (31.0-36.0); MEAN CORPUSCULAR VOLUME 97 fL (80-96); MONOCYTES # (AUTO) 0.4 /CMM (0.1-1.30); MONOCYTES % (AUTO) 11.6 % (2.0-12.0); NEUTROPHILS # (AUTO) 1.6 /CMM (1.8-8.9); NEUTROPHILS % (AUTO) 43.8 % (43.0-81.0); PLATELET COUNT (AUTO) 165 /CMM (150-450); RED BLOOD CELL COUNT(AUTO) 4.35 MIL/uL (4.5-6.0); WHITE BLOOD COUNT (AUTO) 3.7 K/uL (4.3-11.0)
[2018-07-20 13:51] LABS: APPEARANCE,URINE Clear (CLEAR); BILIRUBIN,URINE Negative (NEGATIVE); BLOOD, URINE Negative Ery/uL (NEGATIVE); COLOR,URINE Yellow (YELLOW); KETONES,URINE Negative (NEGATIVE); LEUKOCYTE ESTERASE ,URINE Negative (NEGATIVE); NITRITE, URINE Negative (NEGATIVE); PH,URINE 6.5 (5.0-8.0); PROTEIN,URINE Negative (NEGATIVE); UGLUCOSE >=1000 mg/dL (NEGATIVE)
[2018-07-20 13:52] LABS: BILIRUBIN,DIRECT 0.2 mg/dL (0.0-0.2); BILIRUBIN,TOTAL 0.4 mg/dL (0.2-1.0); CALCIUM, SERUM 8.8 mg/dL (8.5-10.1); CREATININE 1.3 mg/dL (0.6-1.3); POTASSIUM 4.4 mmol/L (3.5-5.1); TOTAL PROTEIN, SERUM 7.2 g/dL (6.4-8.2)
[2018-07-20] MEDS ORDERED: ACETAMINOPHEN ES 500 MG TABLET ONE (13:57)
[2018-07-20] MEDS ORDERED: ACETAMINOPHEN ES 500 MG TABLET PO ONE (14:00)
[2018-07-20 14:01] LABS: BACTERIA,URINE Rare /HPF (None Seen); RBC,URINE NONE SEEN /HPF (0-2); SQUAMOUS EPITHELIAL CELL,UR Few /HPF (None Seen); WBC,URINE NONE SEEN /HPF (0-3)
--- NOTE | 2018-07-20 14:01 | NUR ---
PT GIVEN TYENOL PO PER MD ORDER VSS
[2018-07-20] MEDS ORDERED: INSULIN REGULAR, HUMAN 100 UNIT/ML 10 ML VIAL SQ ONE (14:30)
--- NOTE | 2018-07-20 14:31 | NUR ---
ACCU CK 136 PT GIVEN 10UNITS REG RT DELTOID SQ PT TOLERATED WELLAWAITING EVALUATION BY ER PROVIDER.
[2018-07-20] MEDS ORDERED: INSULIN REGULAR, HUMAN 100 UNIT/ML 10 ML VIAL ONE (14:49)
--- NOTE | 2018-07-20 15:30 | NUR ---
323 ACCU CK REPORTERD TO PT ATE TOLERATED PO'S WELL FELL ASLEEP
[2018-07-20 16:32] VITALS: BP 133/58
--- NOTE | 2018-07-20 16:32 | NUR ---
PT. VERBALIZED UNDERSTANDING OF AFTERCARE INSTRUCTIONS.Patient discharged to home in stable condition. Written and verbal after care instructions given. Patient verbalizes understanding of instruction.
== END 2018-07-20 16:36 | disposition home or self-care (01) ==
LOC: ER 12:49
DX: E11.65 Type 2 diabetes mellitus with hyperglycemia (principal); R10.32 Left lower quadrant pain; I10 Essential (primary) hypertension; E03.9 Hypothyroidism, unspecified; F10.10 Alcohol abuse, uncomplicated; F17.200 Nicotine dependence, unspecified, uncomplicated; Y90.9 Presence of alcohol in blood, level not specified; Z95.0 Presence of cardiac pacemaker; Z96.649 Presence of unspecified artificial hip joint; Z96.659 Presence of unspecified artificial knee joint; Z79.82 Long term (current) use of aspirin; Z79.4 Long term (current) use of insulin
CPT/HCPCS: 36415; 80048; 80076; 81001; 82962 ×2; 83690; 85025; 96372; 99283; J1815; 81000-TC

== ENCOUNTER 2018-10-23 16:02 | Inpatient (IN) | payer OTHER, MEDICAID ==
[~2018-10-23] VITALS: Ht 190.5 cm; Wt 77.1 kg
[2018-10-23] MEDS ORDERED: DEXTROSE 10% IN WATER 250 ML BAG IV ONE ×2 (16:10→19:28)
[2018-10-23] MEDS ORDERED: DEXTROSE 50%-WATER 50 ML DISP.SYRIN ONE ×2 (16:10→19:28)
--- NOTE | 2018-10-23 16:10 | NUR ---
BIBRA39, SITTING OUTSIDE A FRIEND'S HOUSE, LETHARGIC. BG 25, ADMITS TO ETOH D10 250 GIVEN, BG 176 GAS OPERATIONS ANALYST. PT APPEARS VERY LETHARGIC, BUT ABLE TO ANSWER QUESTIONS APPROPRIATELY. HOWEVER, DOES FALL ASLEEP OFF AND ON. DR MENG AT BEDSIDE FOR EVAL. UPON ADMISSION TO ED, BG 87. VERBAL ORDER GIVEN BY DR MENG FOR D50 AND REASSESS IN 15 MIN. EKG AND VITALS OBTAINED. EDEMA NOTED IN BILATERAL LOWER EXTREMITIES. ON MONITOR, MADE COMFORTABLE, AND AWAITING FURTHER ORDERS.
--- NOTE | 2018-10-23 16:18 | NUR ---
LAB UNABLE TO OBTAIN BLOOD. WILL TRY AGAIN AFTER PT RETURNS FROM RADIOLOGY.
--- NOTE | 2018-10-23 16:25 | NUR ---
PT TAKEN TO RADIOLOGY VIA MNAISHA
[2018-10-23] MEDS ORDERED: IV NS 0.9% 1,000 ML BAG IV ONE (16:30)
[2018-10-23] MEDS ORDERED: DEXTROSE 50%-WATER 50 ML DISP.SYRIN IV ONE ×2 (16:30→19:30)
--- NOTE | 2018-10-23 16:40 | NUR ---
LAB AT BEDSIDE FOR 2ND BLOOD DRAW ATTEMPT
[2018-10-23 17:01] LABS: BASOPHILS # (AUTO) 0.1 /CMM (0.0-0.2); BASOPHILS % (AUTO) 2.5 % (0.0-2.0); EOSINOPHILS % (AUTO) 2.9 % (0.0-6.0); HEMATOCRIT 44 % (39-51); HEMOGLOBIN 14.4 g/dL (13.5-17.5); LYMPHOCYTES # (AUTO) 1.3 /CMM (0.8-4.8); LYMPHOCYTES % (AUTO) 29.9 % (20.0-44.0); MEAN CORPUSCULAR HGB CONC 33 g/dl (31.0-36.0); MEAN CORPUSCULAR VOLUME 97 fL (80-96); MONOCYTES # (AUTO) 0.7 /CMM (0.1-1.30); MONOCYTES % (AUTO) 15.5 % (2.0-12.0); NEUTROPHILS # (AUTO) 2.2 /CMM (1.8-8.9); NEUTROPHILS % (AUTO) 49.2 % (43.0-81.0); PLATELET COUNT (AUTO) 166 /CMM (150-450); WHITE BLOOD COUNT (AUTO) 4.5 K/uL (4.3-11.0)
[2018-10-23 17:17] LABS: CALCIUM, SERUM 8.9 mg/dL (8.5-10.1); CARBON DIOXIDE 26 mmol/L (21-32); CHLORIDE 103 mmol/L (98-107); CREATININE 1.9 mg/dL (0.6-1.3); GLUCOSE 110 mg/dL (74-106); POTASSIUM 3.5 mmol/L (3.5-5.1); SERUM AMMONIA 73 umol/L (11-32); SODIUM SERUM 137 mmol/L (136-145); UREA NITROGEN, BLOOD 22 mg/dL (7-18)
[2018-10-23 17:24] LABS: ALANINE AMINOTRANSFERASE 30 U/L (12-78); ALBUMIN 2.7 g/dL (3.4-5.0); ALCOHOL, BLOOD < 3 mg/dL (0-0); ALKALINE PHOSPHATASE 90 U/L (46-116); ASPARTATE AMINOTRANSFERASE 37 U/L (15-37); BILIRUBIN,DIRECT 0.1 mg/dL (0.0-0.2); BILIRUBIN,TOTAL 0.5 mg/dL (0.2-1.0); TOTAL PROTEIN, SERUM 7.2 g/dL (6.4-8.2)
[2018-10-23 17:35] LABS: SALICYLATE 4.3 mg/dL (2.8-20.0)
[2018-10-23 17:36] LABS: ACETAMINOPHEN < 2 ug/ml (10-30)
--- NOTE | 2018-10-23 18:00 | NUR ---
PT ASLEEP IN BED, VSS. AROUSES EASILY. NO COMPLAINTS AT THIS TIME.
[2018-10-23 18:48] LABS: NEUTROPHILS % (MANUAL) 52 (42-76)
[2018-10-23 18:49] LABS: BASOPHILS % (MANUAL) 1 % (0.0-2.0); EOSINOPHILS % (MANUAL) 4 % (0-4); LYMPHOCYTES % (MANUAL) 29 % (16-48); MONOCYTES % (MANUAL) 14 % (0-11.0)
[2018-10-23] MEDS ORDERED: IV D5/ 0.9% NACL 1,000 ML IV ONE (19:27)
[2018-10-23] MEDS ORDERED: LACTULOSE 10 G/15 ML UDC (PYXIS) ONE (19:29)
[2018-10-23] MEDS ORDERED: LACTULOSE 10 G/15 ML UDC (PYXIS) PO ONE (19:30)
--- NOTE | 2018-10-23 19:33 | NUR ---
BED 117-1
[2018-10-23] MEDS ORDERED: ACETAMINOPHEN ES 500 MG TABLET ONE (19:37)
--- NOTE | 2018-10-23 19:44 | NUR ---
PT PROVIDED FOOD AND JUICE
[2018-10-23] MEDS ORDERED: ACETAMINOPHEN ES 500 MG TABLET PO ONE (20:00)
--- NOTE | 2018-10-23 20:06 | NUR ---
REPORT GIVEN TO YEFRI DAWSON FOR UNRULY, 117-1 JOSEPH
--- NOTE | 2018-10-23 20:36 | NUR ---
[facility]
--- NOTE | 2018-10-23 20:45 | NUR ---
MARKETING ROTATION ASSOCIATE NOTE: PT ADMITTED FROM ER VIA RNEY, PT IS ALERT AND ORIENTED X4, AMBULATES WITH ASSISTANCE. NO APPARENT DISTRESS NOTED. NO COMPLAINTS OF PAIN OR DISCOMFORT AT THIS TIME. ON ROOM AIR, BREATHING EVEN AND UNLABORED WITH NORMAL RESPIRATIONS. PT HAS A LEFT UPPER CHEST PACEMAKER, VPACING ON TELE MONITOR HR 62BPM. IV ON LEFT FOREARM #18 INTACT AND PATENT, FLUSHING WELL. NO SIGNS/SYMPTOMS OF INFILTRATION NOTED. PERTINENT ASSESSMENTS DONE. SMALL WOUND NOTED ON RIGHT LOWER LEG MEASURING 0.5 X 0.4, PICTURE TAKEN AND PLACED ON CHART. BELONGINGS LIST SIGNED AND ACCOUNTED FOR, BEER AND NAIL FILE WAS PUT ON CONTRABAND LOCKER PER GENETIC SCIENTIST. CALL LIGHT PLACED WITHIN REACH. KEPT CLEAN, DRY AND COMFORTABLE. SAFETY AND FALL PRECAUTIONS OBSERVED AND MAINTAINED. WILL CONTINUE TO MONITOR PT.
[2018-10-23 20:48] VITALS: BP 152/84
[2018-10-23] MEDS ORDERED: DEXTROSE 50%-WATER 50 ML DISP.SYRIN IV PRN (23:00)
[2018-10-23] MEDS ORDERED: Z GUARD REMEDY 2 OZ OINT TP PRN (23:00)
[2018-10-23] MEDS ORDERED: MAGNESIUM HYDROXIDE 30 ML UDC PO PRN (23:00)
[2018-10-23] MEDS ORDERED: ONDANSETRON HCL/PF 4 MG/2 ML VIAL IVP PRN (23:00)
[2018-10-23] MEDS ORDERED: HYDROCODONE/APAP 10/325MG 1 EA TABLET PO PRN (23:00)
[2018-10-23] MEDS ORDERED: MAG HYDROX/AL HYDROX/SIMETH 30 ML UDC PO PRN (23:00)
[2018-10-23] MEDS ORDERED: ACETAMINOPHEN 325 MG TABLET PO PRN (23:00)
[2018-10-24] VITALS: BP 137/77
[2018-10-24] MEDS: LIDOCAINE 5% (PATCH) 1 EA PATCH TP SCH ×2 (00:13→23:26)
[2018-10-24 04:00] VITALS: BP 126/65
[2018-10-24 04:40] LABS: APPEARANCE,URINE CLEAR (CLEAR); BILIRUBIN,URINE NEGATIVE (NEGATIVE); BLOOD, URINE NEGATIVE Ery/uL (NEGATIVE); COLOR,URINE YELLOW (YELLOW); KETONES,URINE NEGATIVE (NEGATIVE); LEUKOCYTE ESTERASE ,URINE NEGATIVE (NEGATIVE); NITRITE, URINE NEGATIVE (NEGATIVE); PROTEIN,URINE 1+ mg/dl (NEGATIVE); UGLUCOSE 1+ mg/dL (NEGATIVE)
[2018-10-24 04:57] LABS: BACTERIA,URINE Few /HPF (None Seen); RBC,URINE 0-2 /HPF (0-2); SQUAMOUS EPITHELIAL CELL,UR Rare /HPF (None Seen); WBC,URINE 0-2 /HPF (0-3)
[2018-10-24 06:34] LABS: BASOPHILS # (AUTO) 0.1 /CMM (0.0-0.2); BASOPHILS % (AUTO) 1.2 % (0.0-2.0); EOSINOPHILS % (AUTO) 3.7 % (0.0-6.0); HEMATOCRIT 37 % (39-51); HEMOGLOBIN 12.2 g/dL (13.5-17.5); LYMPHOCYTES # (AUTO) 1.9 /CMM (0.8-4.8); LYMPHOCYTES % (AUTO) 43.1 % (20.0-44.0); MEAN CORPUSCULAR HGB CONC 33 g/dl (31.0-36.0); MEAN CORPUSCULAR VOLUME 95 fL (80-96); MONOCYTES # (AUTO) 0.6 /CMM (0.1-1.30); MONOCYTES % (AUTO) 13.4 % (2.0-12.0); NEUTROPHILS # (AUTO) 1.7 /CMM (1.8-8.9); NEUTROPHILS % (AUTO) 38.6 % (43.0-81.0); PLATELET COUNT (AUTO) 150 /CMM (150-450); RED BLOOD CELL COUNT(AUTO) 3.84 MIL/uL (4.5-6.0); WHITE BLOOD COUNT (AUTO) 4.4 K/uL (4.3-11.0)
--- NOTE | 2018-10-24 06:39 | NUR ---
AEROSPACE ENGINEER NOTE: NO CHANGES NOTED THROUGHOUT THE SHIFT. NO APPARENT DISTRESS NOTED. NO COMPLAINTS OF PAIN OR DISCOMFORT AT THIS TIME. ON ROOM AIR, NO SOB NOTED. VPACING ON TELE MONITOR HR 60BPM. IV ON LEFT FOREARM #18 INTACT AND PATENT, FLUSHING WELL. KEPT CLEAN, DRY AND COMFORTABLE. SAFETY AND FALL PRECAUTIONS OBSERVED AND MAINTAINED. WILL ENDORSE TO DAY SHIFT RN FOR CONTINUITY OF CARE.
[2018-10-24 06:49] LABS: THYROID STIMULATING HORMONE 4.189 uIU/mL (0.358-3.74)
[2018-10-24 07:07] LABS: CALCIUM, SERUM 8.3 mg/dL (8.5-10.1); CREATININE 1.4 mg/dL (0.6-1.3); MAGNESIUM 1.6 mg/dL (1.8-2.4); PHOSPHORUS 3.1 mg/dL (2.5-4.9); POTASSIUM 3.8 mmol/L (3.5-5.1)
--- NOTE | 2018-10-24 07:10 | NUR ---
5RN NOTES RECEIVED PT ON BED, A/Ox3, ON RA , RESPIRATION EVEN AND UNLABORED, ON TELE V-PACING , HR IN 60' , L FA IV SITE G 18 CLEAN, DRY AND INTACT, SR UP x3, CALL LIGHT WITHIN EASY REACH, BED LOCKED AND IN LOWEST POSITION, CONTINUE TO MONITOR .
[2018-10-24 08:00] VITALS: BP 139/74
[2018-10-24] MEDS: BLOOD SUGAR DIAGNOSTIC 1 EACH STRIP IN SCH ×4 (08:17→21:17)
[2018-10-24] MEDS: INSULIN REGULAR, HUMAN 100 UNIT/ML 3 ML VIAL SQ PRN ×2 (08:17→21:18)
[2018-10-24] MEDS: LACTULOSE 10 G/15 ML UDC (PYXIS) PO SCH ×3 (08:17→16:46)
[2018-10-24] MEDS: HYDROCODONE/APAP 5/325MG 1 EACH TABLET PO PRN (09:58)
[2018-10-24] MEDS: LEVOTHYROXINE SODIUM 75 MCG TABLET PO SCH (09:58)
[2018-10-24] MEDS ORDERED: TRAZODONE 50 MG TABLET PO PRN (10:00)
[2018-10-24] MEDS ORDERED: Magnesium 1GM/D5W 100ML PREMIX 100 ML IV SCH (10:00)
[2018-10-24] MEDS ORDERED: INSU100V7 SQ (11:20)
[2018-10-24] MEDS ORDERED: INSU100V27 SQ (11:20)
[2018-10-24] MEDS ORDERED: HYDR-4354 PO (11:20)
[2018-10-24] MEDS ORDERED: LISI40TA4 PO (11:20)
[2018-10-24] MEDS ORDERED: DEXTROSE 10% IN WATER 250 ML BAG IV ONE (11:38)
[2018-10-24 12:00] VITALS: BP 159/64
--- NOTE | 2018-10-24 12:23 | NUR ---
RN NOTES BG =47 , 1/2 AMP D50 IV GIVEN , PT IS ASYMPTOMATIC , BG 94 AFTER D50 IV GIVEN, ANGEL CURTAIN FELLER BLINDSTITCH NOTIFED, CONTINUE TO MONITOR .
[2018-10-24 16:00] VITALS: BP 106/70
--- NOTE | 2018-10-24 16:00 | NUR ---
RN NOTES PT STABLE, NO DISTRESS NOTED , CONTINUE TO MONITOR
[2018-10-24] MEDS: CARBAMAZEPINE 200 MG TABLET PO SCH (16:45)
--- NOTE | 2018-10-24 18:28 | NUR ---
RN NOTES PT UP TO BATHROOM , VSS STABLE, NO SIGN AND SYMPTOMS OF LOW BG NOTED, DENIES AND DISTESS , WILL ENDOSE TO AUGER MILL OPERATOR NURSE FOR CONTINUITY OF CARE .
--- NOTE | 2018-10-24 19:16 | NUR ---
TELE/RN NOTES PATIENT IN BED, RESTING COMFORTABLY AT THIS TIME. NO S/S OF ACUTE DISTRESS NOTES, RESPIRATION EVEN AND UNLABORED. NO SOB NOTED. PATIENT A/O X4, DENIES ANY PAIN AT THIS TIME. PATIENT ON TELE WITH V-PACING, IV SITE ON LFA GAUGE 18 CLEAN, NOTED WITH NO S/S OF INFECTION, INFILTRATION. FLUSHED WITH NS. SAFETY MAINTAINED, BED AT THE LOWEST POSITION, LOCKED. CALL LIGHT WITHIN REACH. WILL CONTINUE TO MONITOR PATIENT PER PLAN OF CARE.
[2018-10-24 20:00] VITALS: BP 127/64
[2018-10-24] MEDS: CARVEDILOL 12.5 MG TABLET PO SCH (20:53)
[2018-10-25] VITALS: BP 126/62
[2018-10-25 04:00] VITALS: BP 130/72
--- NOTE | 2018-10-25 06:38 | NUR ---
RN/TELE EXIT NOTES PATIENT REMAINED IN BED, IN COMFORTABLE CONDITION. SLEEPING AT THIS TIME. NO S/S OF ACUTE DISTRESS NOTED, RESPIRATION EVEN AND UNLABORED. NO SOB NOTED. NO S/S OF PAIN NOTED AT THIS TIME. PATIENT ON TELE MONITORING WITH V- PACING AT 60 AT THIS TIME. IV SITE NOTED WITH NO S/S OF INFECTION, INTACT, PATENT. SAFETY MAINTAINED, HOB KEPT ELEVATED. BED IN LOW POSITION, LOCKED, CALL LIGHT WITHIN REACH. WILL ENDORSE AM SHIFT NURSE FOR UNRULY
[2018-10-25 07:28] LABS: CALCIUM, SERUM 8.3 mg/dL (8.5-10.1); CREATININE 1.1 mg/dL (0.6-1.3); MAGNESIUM 1.7 mg/dL (1.8-2.4); POTASSIUM 4.1 mmol/L (3.5-5.1)
--- NOTE | 2018-10-25 07:30 | NUR ---
INITIAL PATIENT IN BED COMFORTABLE CONDITION. AWAKE AT THIS TIME. ALERT AND ORIENTED X 3 NO S/S OF ACUTE DISTRESS NOTED, RESPIRATION EVEN AND UNLABORED. NO SOB NOTED. NO S/S OF PAIN NOTED AT THIS TIME. PATIENT ON TELE MONITORING WITH V- PACING AT 60 AT THIS TIME. IV SITE NOTED WITH NO S/S OF INFECTION, INTACT, PATENT. SAFETY MAINTAINED, HOB KEPT ELEVATED. BED IN LOW POSITION, LOCKED, CALL LIGHT WITHIN REACH. WILL CONTINUE TO MONITOR
[2018-10-25] MEDS: LEVOTHYROXINE SODIUM 75 MCG TABLET PO SCH (07:48)
[2018-10-25] MEDS: BLOOD SUGAR DIAGNOSTIC 1 EACH STRIP IN SCH (07:54)
[2018-10-25] MEDS: HYDROCODONE/APAP 5/325MG 1 EACH TABLET PO PRN (07:59)
[2018-10-25] MEDS: INSULIN REGULAR, HUMAN 100 UNIT/ML 3 ML VIAL SQ PRN (07:59)
[2018-10-25 08:00] VITALS: BP_SYST 130; BP_SYST 150; BP_DIAS 76; BP_DIAS 80
[2018-10-25] MEDS ORDERED: ASPIRIN EC 81 MG TABLET.DR PO SCH (09:00)
[2018-10-25] MEDS ORDERED: HYDROCHLOROTHIAZIDE 25 MG TABLET PO SCH (09:00)
[2018-10-25] MEDS ORDERED: POTASSIUM CHLORIDE 20 MEQ TAB.PRT.SR PO SCH (09:00)
[2018-10-25] MEDS: LACTULOSE 10 G/15 ML UDC (PYXIS) PO SCH (09:22)
[2018-10-25] MEDS: CARVEDILOL 12.5 MG TABLET PO SCH (09:24)
[2018-10-25] MEDS: CARBAMAZEPINE 200 MG TABLET PO SCH (09:24)
[2018-10-25 12:00] VITALS: BP 129/76
[2018-10-25] MEDS ORDERED: oxyCODONE/APAP (5/325 MG) 1 UDTAB TABLET PO PRN ×2 (12:00)
[2018-10-25] MEDS ORDERED: IBUPROFEN 400 MG TABLET PO PRN (12:00)
[2018-10-25] MEDS ORDERED: MAGNESIUM OXIDE 400 MG TABLET PO ONE (13:00)
--- NOTE | 2018-10-25 14:26 | NUR ---
closing pt d/c home will follow up with pcp given prescriptions, aci, tap card pt has keys to home. piv removed with tip intact pt alert and oriented x 3 [place] [phone] [facility] [id number]
== END 2018-10-25 14:22 | disposition home or self-care (01) | DRG 441 ==
LOC: ER 16:02 → TELE1 20:22 → MEDSG1 10-25 13:36
PROVIDERS: ADMIT Nurse Practitioner Acute Care; ATTEND Nurse Practitioner Acute Care
DX: K72.90 Hepatic failure, unspecified without coma (principal); N17.0 Acute kidney failure with tubular necrosis; D68.59 Other primary thrombophilia; E44.0 Moderate protein-calorie malnutrition; G89.4 Chronic pain syndrome; I48.91 Unspecified atrial fibrillation; E03.9 Hypothyroidism, unspecified; I10 Essential (primary) hypertension; Z95.0 Presence of cardiac pacemaker; F17.210 Nicotine dependence, cigarettes, uncomplicated; E11.649 Type 2 diabetes mellitus with hypoglycemia without coma; T38.3X5A Adverse effect of insulin and oral hypoglycemic [antidiabetic] drugs, initial encounter; Y92.099 Unspecified place in other non-institutional residence as the place of occurrence of the external cause; Z68.21 Body mass index [BMI] 21.0-21.9, adult; F15.90 Other stimulant use, unspecified, uncomplicated; E83.42 Hypomagnesemia; E11.65 Type 2 diabetes mellitus with hyperglycemia; D63.8 Anemia in other chronic diseases classified elsewhere; Z96.659 Presence of unspecified artificial knee joint; Z96.649 Presence of unspecified artificial hip joint; K59.00 Constipation, unspecified; M54.5 Low back pain; M16.0 Bilateral primary osteoarthritis of hip; M17.0 Bilateral primary osteoarthritis of knee; M47.816 Spondylosis without myelopathy or radiculopathy, lumbar region
CPT/HCPCS: 36415; 70450-TC; 71045-TC; 80048-TC; 80061-TC; 80076-TC; 81000-TC; 82140-TC; 82962-TC; 83735-TC; 84100-TC; 84443-TC; 84484-TC; 85025-TC; 85730-TC; 87081-TC; 87086-TC; 97116-TC; 97530-TC; G0378; G0480; J1815; J3475; J7030; J7042; J7070

== ENCOUNTER 2019-01-02 11:31 | Emergency (ER) | payer OTHER, MEDICAID ==
[~2019-01-02] VITALS: Ht 188 cm; Wt 78.0 kg
[~2019-01-02 11:31] MED LIST changes: +HYDR-4354 PO; -HYDR-4384 PO; +INSU100V7 SQ; +LISI40TA4 PO; -NPH,100V SQ
--- NOTE | 2019-01-02 11:31 | NUR ---
"BIBRA 88 FRM [facility] FOR BS OF 20'S PER ON SCENE PARAMEDICS ORAL GLUCOSE 24GRAMS GIVEN EN ROUTE, BS 47 UPON ED ARRIVAL" PT AAOX4, -SOB, VSS, NAD NOTED, PENDING MD WHALEN
[2019-01-02] MEDS ORDERED: DEXTROSE 50%-WATER 50 ML DISP.SYRIN ONE (11:54)
[2019-01-02] MEDS ORDERED: DEXTROSE 50%-WATER 50 ML DISP.SYRIN IV ONE (12:00)
[2019-01-02 12:27] LABS: BASOPHILS # (AUTO) 0.1 /CMM (0.0-0.2); BASOPHILS % (AUTO) 1.2 % (0.0-2.0); EOSINOPHILS % (AUTO) 2.7 % (0.0-6.0); HEMATOCRIT 42 % (39-51); HEMOGLOBIN 13.9 g/dL (13.5-17.5); LYMPHOCYTES # (AUTO) 1.3 /CMM (0.8-4.8); LYMPHOCYTES % (AUTO) 28.8 % (20.0-44.0); MEAN CORPUSCULAR HGB CONC 33 g/dl (31.0-36.0); MEAN CORPUSCULAR VOLUME 97 fL (80-96); MONOCYTES # (AUTO) 0.8 /CMM (0.1-1.30); MONOCYTES % (AUTO) 19.5 % (2.0-12.0); NEUTROPHILS # (AUTO) 2.1 /CMM (1.8-8.9); NEUTROPHILS % (AUTO) 47.8 % (43.0-81.0); PLATELET COUNT (AUTO) 124 /CMM (150-450); RED BLOOD CELL COUNT(AUTO) 4.34 MIL/uL (4.5-6.0); WHITE BLOOD COUNT (AUTO) 4.4 K/uL (4.3-11.0)
[2019-01-02 12:32] LABS: CALCIUM, SERUM 8.9 mg/dL (8.5-10.1); CREATININE 1.4 mg/dL (0.6-1.3)
[2019-01-02 12:45] VITALS: BP 137/89
--- NOTE | 2019-01-02 13:17 | NUR ---
BS OF 60, PT IS AAOX4, DENIES ANY H/A, N/V, PER MD, GIVE 1AMP OF D50 AFTER HE FINISHES LUNCH THEN RECHECK
--- NOTE | 2019-01-02 14:44 | NUR ---
Patient discharged to home in stable condition. Written and verbal after care instructions given. Patient verbalizes understanding of instruction. IV removed. Catheter intact and site benign. Pressure and 4x4 applied to site. No bleeding noted.
== END 2019-01-02 15:23 | disposition home or self-care (01) ==
LOC: ER 11:35
DX: E11.649 Type 2 diabetes mellitus with hypoglycemia without coma (principal); I10 Essential (primary) hypertension; E03.9 Hypothyroidism, unspecified; F10.10 Alcohol abuse, uncomplicated; F17.200 Nicotine dependence, unspecified, uncomplicated; Y90.9 Presence of alcohol in blood, level not specified; Z95.0 Presence of cardiac pacemaker; Z96.649 Presence of unspecified artificial hip joint; Z96.659 Presence of unspecified artificial knee joint; Z79.4 Long term (current) use of insulin; Z79.82 Long term (current) use of aspirin
CPT/HCPCS: 36415; 80048-TC; 82962-TC; 85025-TC

== ENCOUNTER 2019-01-19 21:03 | Emergency (ER) | payer OTHER, BC ==
[~2019-01-19] VITALS: Ht 190.5 cm; Wt 77.1 kg
--- NOTE | 2019-01-19 21:35 | NUR ---
CALLED PT TO BE TRAIGED, NO ANSWER
--- NOTE | 2019-01-19 22:05 | NUR ---
CALLED PT TO BE TRAIGED, NO ANSWER
--- NOTE | 2019-01-19 22:56 | NUR ---
PT BIBS CO BILATERAL HIP AND LOWER LUMBAR PAIN SINCE HIS "ACTIVITIES" THIS PAST WEEK. IN BED 3 AWAITING MED EVAL.
[2019-01-19] MEDS ORDERED: IBUPROFEN 600 MG TABLET PO ONE ×2 (23:21→23:30)
[2019-01-20] MEDS ORDERED: MORPHINE SULFATE INJ 4 MG/ML DISP.SYRIN IM ONE
[2019-01-20] MEDS ORDERED: MORPHINE SULFATE INJ 4 MG/ML DISP.SYRIN ONE (00:06)
--- NOTE | 2019-01-20 00:19 | NUR ---
Patient discharged to home in stable condition. Written and verbal after care instructions given. Patient verbalizes understanding of instruction.
[2019-01-20 00:20] VITALS: BP 120/70
== END 2019-01-20 00:20 | disposition home or self-care (01) ==
LOC: ER 21:06
DX: M79.18 Myalgia, other site (principal); G89.29 Other chronic pain; I10 Essential (primary) hypertension; E11.9 Type 2 diabetes mellitus without complications; E03.9 Hypothyroidism, unspecified; F10.10 Alcohol abuse, uncomplicated; F17.200 Nicotine dependence, unspecified, uncomplicated; Y90.9 Presence of alcohol in blood, level not specified; Z79.4 Long term (current) use of insulin; Z79.82 Long term (current) use of aspirin; Z95.0 Presence of cardiac pacemaker; Z96.649 Presence of unspecified artificial hip joint; Z96.659 Presence of unspecified artificial knee joint
CPT/HCPCS: 96372; 99283; J2270

== ENCOUNTER 2019-01-31 19:59 | Emergency (ER) | payer OTHER, BC ==
[~2019-01-31] VITALS: Ht 190.5 cm; Wt 74.8 kg
[2019-01-31 20:36] VITALS: BP 138/79
== END 2019-02-01 01:40 | disposition home or self-care (01) ==
LOC: ER 20:01
DX: L98.9 Disorder of the skin and subcutaneous tissue, unspecified (principal); F15.90 Other stimulant use, unspecified, uncomplicated; I10 Essential (primary) hypertension; E11.9 Type 2 diabetes mellitus without complications; E03.9 Hypothyroidism, unspecified; F17.200 Nicotine dependence, unspecified, uncomplicated; M06.9 Rheumatoid arthritis, unspecified; Z95.0 Presence of cardiac pacemaker; Z96.659 Presence of unspecified artificial knee joint; Z96.649 Presence of unspecified artificial hip joint; Z79.899 Other long term (current) drug therapy; Z79.4 Long term (current) use of insulin; Z79.82 Long term (current) use of aspirin

== ENCOUNTER 2019-06-27 23:39 | Emergency (ER) | payer OTHER, BC ==
[~2019-06-27] VITALS: Ht 190.5 cm; Wt 74.8 kg
[2019-06-27 23:39] VITALS: BP 190/96
[~2019-06-27 23:39] MED LIST changes: -TRAZ-214 PO; +TRAZ-257 PO
[2019-06-28] MEDS ORDERED: TDAP [DIPH/PERTUSSIS/TET] 0.5 ML VIAL IM ONE ×2 (00:03→00:30)
[2019-06-28] MEDS ORDERED: LIDOCAINE 1%-EPI 1:100,000 20 ML VIAL ONE (01:18)
--- NOTE | 2019-06-28 01:33 | NUR ---
AT BEDSIDE FOR SUTURE PROCEDURE
--- NOTE | 2019-06-28 01:44 | NUR ---
TECH AT BEDSIDE FOR CLEANING
--- NOTE | 2019-06-28 05:31 | NUR ---
Patient discharged to home in stable condition. Written and verbal after care instructions given. Patient verbalizes understanding of instruction.
--- NOTE | 2019-06-28 05:31 | NUR ---
Patient is ambulatory with a steady gait.
[2019-08-05] MEDS ORDERED: INSU100I30 SQ (12:00)
== END 2019-06-28 05:31 | disposition home or self-care (01) ==
LOC: ER 23:39
DX: S01.81XA Laceration without foreign body of other part of head, initial encounter (principal); I10 Essential (primary) hypertension; E11.9 Type 2 diabetes mellitus without complications; E03.9 Hypothyroidism, unspecified; F17.200 Nicotine dependence, unspecified, uncomplicated; Z95.0 Presence of cardiac pacemaker; Z96.649 Presence of unspecified artificial hip joint; Z96.659 Presence of unspecified artificial knee joint; Z79.899 Other long term (current) drug therapy; Z79.4 Long term (current) use of insulin; Z79.82 Long term (current) use of aspirin; W10.8XXA Fall (on) (from) other stairs and steps, initial encounter; Y93.01 Activity, walking, marching and hiking; Y92.89 Other specified places as the place of occurrence of the external cause; Y99.8 Other external cause status
CPT/HCPCS: 12011; 70450; 90471; 90715; 99284; A6403; J3490

== ENCOUNTER 2019-07-25 20:17 | Emergency (ER) | payer OTHER, BC ==
[~2019-07-25] VITALS: Ht 190.5 cm; Wt 95.3 kg
--- NOTE | 2019-07-25 20:42 | NUR ---
URINE SENT TO STAT LAB
--- NOTE | 2019-07-25 20:45 | NUR ---
C/O ABDOMINAL PAIN X1 DAY. "I RAN OUT OF PAIN MEDS" (PERCOCET). REPORTS PAIN LEVEL 10/10 AND SHARP. PRESENTS TO ER ACTIVELY GUARDING AND GRIMACING. DENIES N/V, DENIES CHANGES IN BOWEL/BLADDER. NO OTHER MEDICAL COMPLAINTS AT THIS TIME. NO ACUTE DISTRESS NOTED. RR EVEN AND UNLABORED ON RA. MADE COMFORTABLE AND READY FOR EVAL.
--- NOTE | 2019-07-25 20:58 | NUR ---
DR MCCULLOUGH AT BEDSIDE FOR EVAL.
--- NOTE | 2019-07-25 21:34 | NUR ---
PER PURE CULTURE OPERATOR, PT IS HARD STICK. WILL SEND SOMEONE ELSE TO TRY
[2019-07-25 21:57] LABS: APPEARANCE,URINE Clear (CLEAR); BILIRUBIN,URINE Negative (NEGATIVE); BLOOD, URINE Negative Ery/uL (NEGATIVE); COLOR,URINE Yellow (YELLOW); KETONES,URINE Negative (NEGATIVE); LEUKOCYTE ESTERASE ,URINE Negative (NEGATIVE); NITRITE, URINE Negative (NEGATIVE); PH,URINE 6.5 (5.0-8.0); PROTEIN,URINE Trace mg/dl (NEGATIVE); UGLUCOSE 500 MG/DL mg/dL (NEGATIVE)
[2019-07-25 22:07] VITALS: BP 151/82
--- NOTE | 2019-07-25 22:16 | NUR ---
STILL UNABLE TO OBTAIN IV ACCESS. ONCOMING AWARE.
--- NOTE | 2019-07-25 22:18 | NUR ---
DR FREEDMAN AT BEDSIDE
[2019-07-25 22:25] LABS: BASOPHILS # (AUTO) 0.1 /CMM (0.0-0.2); BASOPHILS % (AUTO) 1.6 % (0.0-2.0); EOSINOPHILS % (AUTO) 1.1 % (0.0-6.0); HEMATOCRIT 41 % (39-51); HEMOGLOBIN 13.2 g/dL (13.5-17.5); LYMPHOCYTES # (AUTO) 1.2 /CMM (0.8-4.8); LYMPHOCYTES % (AUTO) 29.7 % (20.0-44.0); MEAN CORPUSCULAR HGB CONC 33 g/dl (31.0-36.0); MEAN CORPUSCULAR VOLUME 94 fL (80-96); MONOCYTES # (AUTO) 0.5 /CMM (0.1-1.30); MONOCYTES % (AUTO) 12.8 % (2.0-12.0); NEUTROPHILS # (AUTO) 2.2 /CMM (1.8-8.9); NEUTROPHILS % (AUTO) 54.8 % (43.0-81.0); PLATELET COUNT (AUTO) 207 /CMM (150-450); RED BLOOD CELL COUNT(AUTO) 4.31 MIL/uL (4.5-6.0)
[2019-07-25 22:29] LABS: BACTERIA,URINE Rare /HPF (None Seen); RBC,URINE NONE SEEN /HPF (0-2); SQUAMOUS EPITHELIAL CELL,UR Few /HPF (None Seen); WBC,URINE NONE SEEN /HPF (0-3)
[2019-07-25] MEDS ORDERED: IOHEXOL-300 100 ML VIAL IV ONE (22:35)
[2019-07-25] MEDS ORDERED: CT SWABBABLE VALVE TRANS SET 1 EA INFUS.SET MC ONE (22:35)
[2019-07-25] MEDS ORDERED: IV NS 0.9% 0 ML IV ONE (22:35)
[2019-07-25] MEDS ORDERED: FAMOTIDINE (20 MG) 20 MG TABLET ONE (22:37)
[2019-07-25] MEDS ORDERED: HYDROMORPHONE 1 MG/1 ML DISP.SYRIN ONE (22:37)
[2019-07-25 22:41] LABS: ALBUMIN 2.9 g/dL (3.4-5.0); BILIRUBIN,DIRECT 0.2 mg/dL (0.0-0.2); BILIRUBIN,TOTAL 0.4 mg/dL (0.2-1.0); CALCIUM, SERUM 8.6 mg/dL (8.5-10.1); CREATININE 1.4 mg/dL (0.6-1.3); POTASSIUM 4.3 mmol/L (3.5-5.1); TOTAL PROTEIN, SERUM 7.7 g/dL (6.4-8.2)
--- NOTE | 2019-07-25 22:45 | NUR ---
PT TAKEN TO RADIOLOGY VIA MANISHA
--- NOTE | 2019-07-25 22:59 | NUR ---
PT BACK FROM RADIOLOGY
[2019-07-25] MEDS ORDERED: FAMOTIDINE (20 MG) 20 MG TABLET PO ONE (23:00)
[2019-07-25] MEDS ORDERED: HYDROMORPHONE 1 MG/1 ML DISP.SYRIN IM ONE (23:00)
--- NOTE | 2019-07-25 23:21 | NUR ---
PT STATES HIS PAIN IS MUCH BETTER, 09/30. ASKING FOR WATER. INFORMED HIM TO WAIT FOR CT RESULT.
--- NOTE | 2019-07-26 00:13 | NUR ---
Patient discharged to home in stable condition. Written and verbal after care instructions given. Patient verbalizes understanding of instruction.
[2019-08-05] MEDS ORDERED: INSU100I30 SQ (12:00)
== END 2019-07-26 00:14 | disposition home or self-care (01) ==
LOC: ER 20:25
DX: K86.1 Other chronic pancreatitis (principal); E11.65 Type 2 diabetes mellitus with hyperglycemia; I10 Essential (primary) hypertension; E03.9 Hypothyroidism, unspecified; Z95.0 Presence of cardiac pacemaker; Z96.649 Presence of unspecified artificial hip joint; Z96.659 Presence of unspecified artificial knee joint; Z79.4 Long term (current) use of insulin; Z79.899 Other long term (current) drug therapy; Z79.82 Long term (current) use of aspirin
CPT/HCPCS: 36415; 71045; 74176; 80048; 80076; 81001; 83690; 84484; 85025; 96372; 99285; J1170; 81000-TC; J7050; Q9967

== ENCOUNTER 2019-08-02 12:04 | Inpatient (IN) | payer OTHER ==
[~2019-08-02] VITALS: Ht 182.9 cm; Wt 68.0 kg
--- NOTE | 2019-08-02 12:09 | NUR ---
TANJA RA 88 "Was sitting on bench Slow to respond BS reading "high", TO ER BED 4, HOOKED TO MONITOR, CHANGED TO HOSP GOWN, WARM BLANKET PROVIDED. DR SYLVESTER AT BEDSIDE
--- NOTE | 2019-08-02 12:11 | NUR ---
ACCUCHECK DONE >600, DR SYLVESTER AWARE
--- NOTE | 2019-08-02 12:15 | NUR ---
LAWRENCE HANSEN AT BEDSIDE
[2019-08-02] MEDS ORDERED: INSULIN REGULAR, HUMAN 100 UNIT/ML 10 ML VIAL SQ ONE (12:30)
[2019-08-02] MEDS ORDERED: IV NS 0.9% 1,000 ML BAG IV ONE ×2 (12:30→13:30)
[2019-08-02] MEDS ORDERED: INSULIN REGULAR, HUMAN 100 UNIT/ML 10 ML VIAL ONE (12:33)
[2019-08-02] MEDS ORDERED: METF-440 PO (12:47)
[2019-08-02] MEDS ORDERED: HYDR-4384 PO (12:47)
[2019-08-02] MEDS ORDERED: LEVE500T20 PO (12:47)
[2019-08-02] MEDS ORDERED: GABA-534 PO (12:47)
[2019-08-02] MEDS ORDERED: INSU100I14 SQ (12:47)
[2019-08-02] MEDS ORDERED: FURO20TA4 PO (12:47)
[2019-08-02 12:48] LABS: BASOPHILS % (AUTO) 0.4 % (0.0-2.0); EOSINOPHILS % (AUTO) 0.5 % (0.0-6.0); HEMATOCRIT 46 % (39-51); HEMOGLOBIN 14.5 g/dL (13.5-17.5); LYMPHOCYTES # (AUTO) 1.5 /CMM (0.8-4.8); LYMPHOCYTES % (AUTO) 40.4 % (20.0-44.0); MEAN CORPUSCULAR HGB CONC 32 g/dl (31.0-36.0); MEAN CORPUSCULAR VOLUME 96 fL (80-96); MONOCYTES # (AUTO) 0.4 /CMM (0.1-1.30); MONOCYTES % (AUTO) 11.4 % (2.0-12.0); NEUTROPHILS # (AUTO) 1.7 /CMM (1.8-8.9); NEUTROPHILS % (AUTO) 47.3 % (43.0-81.0); PLATELET COUNT (AUTO) 197 /CMM (150-450); RED BLOOD CELL COUNT(AUTO) 4.75 MIL/uL (4.5-6.0); WHITE BLOOD COUNT (AUTO) 3.6 K/uL (4.3-11.0)
[2019-08-02 12:55] LABS: ALANINE AMINOTRANSFERASE 82 U/L (12-78); ALBUMIN 3.1 g/dL (3.4-5.0); ALKALINE PHOSPHATASE 170 U/L (46-116); ASPARTATE AMINOTRANSFERASE 102 U/L (15-37); BILIRUBIN,TOTAL 0.3 mg/dL (0.2-1.0); CALCIUM, SERUM 9.4 mg/dL (8.5-10.1); CARBON DIOXIDE 23 mmol/L (21-32); CHLORIDE 90 mmol/L (98-107); CREATININE 2.2 mg/dL (0.6-1.3); POTASSIUM 4.9 mmol/L (3.5-5.1); SODIUM SERUM 125 mmol/L (136-145); TOTAL PROTEIN, SERUM 8.1 g/dL (6.4-8.2); UREA NITROGEN, BLOOD 24 mg/dL (7-18)
--- NOTE | 2019-08-02 12:55 | NUR ---
KELLY MACHINE OPERATOR AT BEDSIDE
--- NOTE | 2019-08-02 13:01 | NUR ---
RT AT BEDSIDE FOR ABG
[2019-08-02 13:08] LABS: GLUCOSE 798 mg/dL (74-106)
[2019-08-02 13:21] LABS: ABG BASE EXCESS -5.1 mmol/L; ABG OXYGEN SATURATION 96.8 % (92.0-98.5); ABG PCO2 38.1 mmHg (35.0-45.0); ABG PH 7.341 (7.350-7.450); ABG PO2 98.1 mmHg (75.0-100.0); COHb 2.7 % (0.5-1.5); MetHb 0.2 % (0.0-1.5); SITE, ABG Right Brachial; VENT MODE, BG RA
--- NOTE | 2019-08-02 13:41 | NUR ---
REPORT GIVEN TO GABBY ASIF OF TELE UNIT
--- NOTE | 2019-08-02 15:10 | NUR ---
COMMUNICATIONS FIELD TECHNICIAN NOTES RECEIVED PT FROM E.R. STAFF VIA NELLY, PT IS AWAKE, ALERT AND ORIENTED, NO COMPLAINT AT THIS TIME, NOT IN DISTRESS, ASSISTED TO BED, MADE COMFORTABLE, ROOM SET UP ORIENTATION PROVIDED TO PT, VERBALIZED UNDERSTANDING, VITALS TAKEN AND RECORDED, BLOOD SUGAR TAKEN, 516, DR. HANSEN INFORMED, AWAITING ADMITTING ORDERS FROM .
[2019-08-02] MEDS ORDERED: DEXTROSE 50%-WATER 50 ML DISP.SYRIN IV PRN (15:30)
[2019-08-02] MEDS ORDERED: ACETAMINOPHEN 325 MG TABLET PO PRN (15:30)
[2019-08-02] MEDS ORDERED: ONDANSETRON HCL/PF 4 MG/2 ML VIAL IVP PRN (15:30)
[2019-08-02] MEDS ORDERED: *INSULIN REGULAR(HUMULIN R)HUM 100 UNIT/ML VIAL SQ PRN (15:30)
[2019-08-02 16:00] VITALS: BP 128/100
[2019-08-02] MEDS: BLOOD SUGAR DIAGNOSTIC 1 EACH STRIP IN SCH ×3 (16:35→22:07)
[2019-08-02] MEDS: GABAPENTIN 300 MG CAPSULE PO SCH (17:00)
[2019-08-02] MEDS: CARVEDILOL 12.5 MG TABLET PO SCH (17:00)
[2019-08-02] MEDS ORDERED: CARVEDILOL 25 MG TABLET PO SCH (17:00)
[2019-08-02] MEDS: LEVOTHYROXINE SODIUM 75 MCG TABLET PO SCH (17:01)
[2019-08-02] MEDS: LEVETIRACETAM (250 MG) 250 MG TABLET PO SCH (17:01)
[2019-08-02 17:36] LABS: MAGNESIUM 2.2 mg/dL (1.8-2.4); PHOSPHORUS 4.1 mg/dL (2.5-4.9)
[2019-08-02] MEDS: INSULIN REGULAR, HUMAN 100 UNIT/ML 3 ML VIAL SQ PRN (19:27)
--- NOTE | 2019-08-02 19:30 | NUR ---
CERTIFIED MASTER SAFECRACKER NOTES PT IN BED, AWAKE, ALERT AND ORIENTED, ATE DINNER, TOLERATES WELL, BLOOD SUGAR CHECKED, INSULIN GIVEN PER SLIDING SCALE, DR. HANSEN INFORMED OF PT'S LATEST BLOOD SUGAR, CALL LIGHT WITHIN REACH, NEEDS ATTENDED.
[2019-08-02] MEDS: IV NS 0.9% 1,000 ML IV PRN (19:42)
[2019-08-02 20:00] VITALS: BP 94/56
--- NOTE | 2019-08-02 20:00 | NUR ---
RN NOTES PATIENT IN BED, ALERT AND ORIENTED X 3, ON ROOM AIR, NOT IN APPARENT PAIN, HAS PACEMAKER, BG ELEVATED, ON SLIDING SCALE, ALWAYS ASKING FOR SNACKS, USES URINAL, IVF AT 150 ML/HR, WILL CONTINUE TO MONITOR
[2019-08-02 20:57] LABS: APPEARANCE,URINE CLEAR (CLEAR); BILIRUBIN,URINE NEGATIVE (NEGATIVE); BLOOD, URINE NEGATIVE Ery/uL (NEGATIVE); COLOR,URINE YELLOW (YELLOW); KETONES,URINE NEGATIVE (NEGATIVE); LEUKOCYTE ESTERASE ,URINE NEGATIVE (NEGATIVE); NITRITE, URINE NEGATIVE (NEGATIVE); PROTEIN,URINE TRACE mg/dl (NEGATIVE); UGLUCOSE >=1000 mg/dL (NEGATIVE)
[2019-08-02 21:10] LABS: BACTERIA,URINE Few /HPF (None Seen); RBC,URINE 0-2 /HPF (0-2); SQUAMOUS EPITHELIAL CELL,UR Few /HPF (None Seen); WBC,URINE 0-2 /HPF (0-3)
[2019-08-02 21:11] LABS: HYALINE CASTS, URINE Few /LPF (None Seen)
[2019-08-02] MEDS: INSULIN GLARGINE, 100 UNIT/ML CARTRIDGE SQ SCH (21:56)
[2019-08-03] VITALS: BP 123/66
[2019-08-03] MEDS: IV NS 0.9% 1,000 ML IV PRN ×3 (02:34→19:55)
--- NOTE | 2019-08-03 02:56 | NUR ---
RN NOTES PATIENT COMPLAINING OF HUNGER AND REQUESTED ACCUCHECK. BG 85 MG/DL, GIVEN SNACKS
[2019-08-03 04:00] VITALS: BP 123/58
[2019-08-03] MEDS: INSULIN REGULAR, HUMAN 100 UNIT/ML 3 ML VIAL SQ PRN ×2 (06:30→11:53)
[2019-08-03] MEDS: BLOOD SUGAR DIAGNOSTIC 1 EACH STRIP IN SCH ×4 (06:30→21:44)
--- NOTE | 2019-08-03 06:37 | NUR ---
RN NOTES PM SHIFT ALERT AND ORIENTED X4, ROOM AIR, HYPERGLYCEMIA RESOLVED WITH INSULIN PER SLIDING SCALE, GIVEN SNACKS DURING SHIFT, 3AM BG 85 MG/DL, NS AT 150 ML/HR, PT EVAL, ACCUCHECK WITH SLIDING SCALE, LANTUS, IVF.
--- NOTE | 2019-08-03 07:30 | NUR ---
MS/RN Opening note Received patient AO x 3, able to responds all stimuli. Skin is warn to touch, kept clean/dry, intact IV site running 100ml NS fluid. Respiratory even and unlabored in room air. Keep lower position of the bed with locked wheel for safety. Call light within reach, will continue to monitor.
[2019-08-03 08:00] VITALS: BP 144/73
[2019-08-03] MEDS: LEVOTHYROXINE SODIUM 75 MCG TABLET PO SCH (08:01)
[2019-08-03] MEDS: ASPIRIN EC 81 MG TABLET.DR PO SCH (09:12)
[2019-08-03] MEDS: GABAPENTIN 300 MG CAPSULE PO SCH ×2 (09:12→17:31)
[2019-08-03] MEDS: LEVETIRACETAM (250 MG) 250 MG TABLET PO SCH ×2 (09:12→21:19)
[2019-08-03] MEDS: CARVEDILOL 12.5 MG TABLET PO SCH ×2 (09:13→17:32)
[2019-08-03] MEDS: INSULIN GLARGINE, 100 UNIT/ML CARTRIDGE SQ SCH ×2 (09:14→21:45)
[2019-08-03 09:39] LABS: BASOPHILS % (AUTO) 0.8 % (0.0-2.0); EOSINOPHILS % (AUTO) 1.9 % (0.0-6.0); HEMATOCRIT 44 % (39-51); HEMOGLOBIN 14.2 g/dL (13.5-17.5); LYMPHOCYTES # (AUTO) 2.2 /CMM (0.8-4.8); MEAN CORPUSCULAR HGB CONC 32 g/dl (31.0-36.0); MEAN CORPUSCULAR VOLUME 92 fL (80-96); MONOCYTES # (AUTO) 0.4 /CMM (0.1-1.30); MONOCYTES % (AUTO) 8.5 % (2.0-12.0); NEUTROPHILS # (AUTO) 1.5 /CMM (1.8-8.9); NEUTROPHILS % (AUTO) 35.8 % (43.0-81.0); PLATELET COUNT (AUTO) 172 /CMM (150-450); RED BLOOD CELL COUNT(AUTO) 4.74 MIL/uL (4.5-6.0); WHITE BLOOD COUNT (AUTO) 4.2 K/uL (4.3-11.0)
[2019-08-03 09:40] LABS: CALCIUM, SERUM 8.7 mg/dL (8.5-10.1); CREATININE 1.3 mg/dL (0.6-1.3); MAGNESIUM 1.8 mg/dL (1.8-2.4); PHOSPHORUS 3.2 mg/dL (2.5-4.9); POTASSIUM 3.6 mmol/L (3.5-5.1)
[2019-08-03] MEDS: HYDROCODONE/APAP 5/325MG 1 EACH TABLET PO PRN ×2 (11:36→17:31)
[2019-08-03 16:00] VITALS: BP 136/81
--- NOTE | 2019-08-03 18:40 | NUR ---
MS/RN Closing note Patient in bed comfortably, remain AO x 3. Skin is warm to touch, kept clean/dry, intact IV site, running NS at 100ml/hr. Respiratory even and unlabored in room air, no sob or distress observed. Given narco 5-325mg for hip and knee pain around 1730. Kept lower position of the bed with locked wheel. Call light within reach, all need met. Will endorse machinist 2nd shift.
--- NOTE | 2019-08-03 19:36 | NUR ---
MS RN OPENING NOTES PATIENT RECEIVED RESTING IN BED A/O X3. STABLE ON RA WITH BREATHING EVEN AND UNLABORED, NO SOB NOTED. NO SIGNS OF ACUTE DISTRESS. NO COMPLAINTS OF PAIN OR DISCOMFORT. IV LOCATED ON LFA AND R FA #20 RUNNING NS @ 100ML/ HR. SAFETY PRECAUTIONS IN PLACE WITH BED IN LOWEST POSITION, CALL LIGHT WITHIN REACH, BREAKS ON, SIDE RAILS UP. WILL CONTINUE TO MONITOR THROUGHOUT THE SHIFT.
[2019-08-03 20:00] VITALS: BP 103/58
[2019-08-04] MEDS: INSULIN REGULAR, HUMAN 100 UNIT/ML 3 ML VIAL SQ PRN ×2 (06:55→17:32)
[2019-08-04] MEDS: HYDROCODONE/APAP 5/325MG 1 EACH TABLET PO PRN (06:56)
--- NOTE | 2019-08-04 07:18 | NUR ---
MS RN CLOSING NOTES PATIENT RESTING IN BED A/O X3. STABLE ON RA WITH BREATHING EVEN AND UNLABORED, NO SOB NOTED. NO SIGNS OF ACUTE DISTRESS. NO COMPLAINTS OF PAIN OR DISCOMFORT. IV LOCATED ON LFA AND R FA #20 RUNNING NS @ 100ML/ HR. SAFETY PRECAUTIONS IN PLACE WITH BED IN LOWEST POSITION, CALL LIGHT WITHIN REACH, BREAKS ON, SIDE RAILS UP. WILL CONTINUE TO MONITOR THROUGHOUT THE SHIFT.
[2019-08-04] MEDS: BLOOD SUGAR DIAGNOSTIC 1 EACH STRIP IN SCH ×2 (07:30→11:51)
[2019-08-04 08:00] VITALS: BP 148/83
--- NOTE | 2019-08-04 08:00 | NUR ---
RN NOTES RECEIVED PATIENT IN THE BED A/O X4, ON ROOM AIR NO ACUTE RESPIRATORY DISTRESS, PATIENT WAS COMPLAINING OF PAIN BILATERAL HIPS 5/10 PER PAIN SCALE MEDICATION WERE ADMINISTERED NOT EFFECTIVE, SEEN BY HOSPITALIST AND WILL CHANGE MEDICATION DOSAGES, ALSO ADMINISTERED SCHEDULED MEDICATION, VS STABLE, PATIENT USING URINAL INSERTED NEW IV ACCESS ON RIGHT UA INTACT INFUSING NS AT 100 ML/HR INTACT, PATENT. CALL LIGHT WITHIN TO REACH BS-178 MG/DL, ADMINISTERED LANTUS 10 U SCHEDULED, CALL LIGHT WITHIN TO REACH, PATIENT TURN AND REPOSTION SELF IN THE BED.
[2019-08-04] MEDS: LEVETIRACETAM (250 MG) 250 MG TABLET PO SCH ×2 (08:28→21:35)
[2019-08-04] MEDS: GABAPENTIN 300 MG CAPSULE PO SCH ×2 (08:28→17:25)
[2019-08-04] MEDS: ASPIRIN EC 81 MG TABLET.DR PO SCH (08:28)
[2019-08-04] MEDS: CARVEDILOL 12.5 MG TABLET PO SCH ×2 (08:28→17:26)
[2019-08-04] MEDS: LEVOTHYROXINE SODIUM 75 MCG TABLET PO SCH (08:29)
[2019-08-04] MEDS: INSULIN GLARGINE, 100 UNIT/ML CARTRIDGE SQ SCH ×2 (09:28→21:35)
[2019-08-04 11:33] LABS: BASOPHILS # (AUTO) 0.1 /CMM (0.0-0.2); BASOPHILS % (AUTO) 1.4 % (0.0-2.0); EOSINOPHILS % (AUTO) 2.7 % (0.0-6.0); HEMATOCRIT 37 % (39-51); HEMOGLOBIN 12.5 g/dL (13.5-17.5); LYMPHOCYTES # (AUTO) 1.8 /CMM (0.8-4.8); LYMPHOCYTES % (AUTO) 39.4 % (20.0-44.0); MEAN CORPUSCULAR HGB CONC 34 g/dl (31.0-36.0); MEAN CORPUSCULAR VOLUME 92 fL (80-96); MONOCYTES # (AUTO) 0.4 /CMM (0.1-1.30); MONOCYTES % (AUTO) 9.7 % (2.0-12.0); NEUTROPHILS # (AUTO) 2.1 /CMM (1.8-8.9); NEUTROPHILS % (AUTO) 46.8 % (43.0-81.0); PLATELET COUNT (AUTO) 159 /CMM (150-450); RED BLOOD CELL COUNT(AUTO) 4.03 MIL/uL (4.5-6.0); WHITE BLOOD COUNT (AUTO) 4.5 K/uL (4.3-11.0)
[2019-08-04 11:39] LABS: CALCIUM, SERUM 8.2 mg/dL (8.5-10.1); CREATININE 1.1 mg/dL (0.6-1.3); MAGNESIUM 1.6 mg/dL (1.8-2.4); PHOSPHORUS 2.8 mg/dL (2.5-4.9); POTASSIUM 3.8 mmol/L (3.5-5.1)
[2019-08-04 11:52] VITALS: BP 102/57
--- NOTE | 2019-08-04 11:52 | NUR ---
rn notes administered Narco 10/325 mg po prn for bilateral hip pain 8/10 per pain scale, per patient request, bs-53 mg/dl [id number] has no sign and symptoms of hypoglycemia , refused dextrose to be given iv, patient eating lunch, also given milk, and jell-o. v/s taken bp-102/57,p-67, r-17, o2-93 room air.call light within to reach. continued monitoring.
[2019-08-04] MEDS: HYDROCODONE/APAP 10/325MG 1 EA TABLET PO PRN ×2 (11:55→17:45)
[2019-08-04] MEDS: Magnesium 1GM/D5W 100ML PREMIX 100 ML IV SCH ×2 (13:22→15:01)
--- NOTE | 2019-08-04 13:30 | NUR ---
RN NOTES BS-145 MG/DL, PER HOSPITALIST CHANGE COVERAGE TO MODERATED SLIDING SCALE. MEDICATION WERE ADMINISTERED FOR PAIN EFFECTIVE, INFUSING MG 100 ML/HR ON RIGHT UA INTACT. CALL LIGHT WITHIN TO REACH. CONTINUED MONITORING.
[2019-08-04] MEDS ORDERED: DEXTROSE 50%-WATER 50 ML DISP.SYRIN IV PRN (14:00)
[2019-08-04] MEDS ORDERED: *INSULIN REGULAR(HUMULIN R)HUM 100 UNIT/ML VIAL SQ PRN (14:00)
[2019-08-04 16:00] VITALS: BP 147/79
--- NOTE | 2019-08-04 17:00 | NUR ---
RN NOTES BS-211 MG/DL COVERAGE GIVEN, ALSO ADMINISTERED SCHEDULED MEDICATION, V/S STABLE. PATIENT WAS COMPLAINING OF LEFT AND RIGHT HIP PAIN 7/10 PER PAIN SCALE. TOLERATED DINNER WELL, SAFETY PRECAUTION MAINTAINED ALL THE TIME. PT USING WALKER.
[2019-08-04] MEDS: BLOOD SUGAR DIAGNOSTIC 1 EACH STRIP VI SCH ×2 (17:26→21:35)
--- NOTE | 2019-08-04 17:45 | NUR ---
RN NOTES ADMINISTERED NARCO 10/325 MG PO PRN FOR LEFT AND RIGHT HIP PAIN 10/30 PER PATIENT REQUEST, V/S TAKEN BP 147/79, P-60, R-16. CONTINUED MONITORING.
--- NOTE | 2019-08-04 18:35 | NUR ---
RN NOTES MEDICATION WERE ADMINISTERED FOR PAIN EFFECTIVE, V/S STABLE, PATIENT SITTING EDGE OF THE BED. CALL LIGHT WITHIN TO REACH. ENDORSED ONCOMING NURSE FOLLOW PLAN OF CARE.
--- NOTE | 2019-08-04 19:10 | NUR ---
MS RN NOTES RECEIVED PT IN BED AWAKE AND ABLE TO MAKE NEEDS KNOWN. PT A/OX 3. RESPIRATIONS EVEN AND UNLABORED WITH NO S/S OF ACUTE DISTRESS OR SOB NOTED. NO COMPLAINTS OF PAIN AT THIS TIME. PT NOTED IV ACCESS PATENT AND INTACT. SAFETY MEASURES IN PLACE WITH BED IN LOWEST LOCKED POSITION WITH SIDE RAILS UP X2. CALL LIGHT WITHIN REACH. WILL CONTINUE TO MONITOR.
[2019-08-04 20:03] VITALS: BP 144/85
[2019-08-05] MEDS: HYDROCODONE/APAP 10/325MG 1 EA TABLET PO PRN ×2 (00:06→06:41)
[2019-08-05] MEDS: INSULIN REGULAR, HUMAN 100 UNIT/ML 3 ML VIAL SQ PRN ×2 (06:36→11:59)
[2019-08-05] MEDS: LEVOTHYROXINE SODIUM 75 MCG TABLET PO SCH (06:41)
--- NOTE | 2019-08-05 07:30 | NUR ---
received this am,stable,vs good.no acute distress.up and about in room.
[2019-08-05 07:32] LABS: BASOPHILS # (AUTO) 0.1 /CMM (0.0-0.2); BASOPHILS % (AUTO) 1.9 % (0.0-2.0); HEMATOCRIT 40 % (39-51); LYMPHOCYTES # (AUTO) 1.6 /CMM (0.8-4.8); MEAN CORPUSCULAR HGB CONC 32 g/dl (31.0-36.0); MEAN CORPUSCULAR VOLUME 93 fL (80-96); MONOCYTES # (AUTO) 0.4 /CMM (0.1-1.30); MONOCYTES % (AUTO) 10.7 % (2.0-12.0); NEUTROPHILS # (AUTO) 1.4 /CMM (1.8-8.9); NEUTROPHILS % (AUTO) 39.4 % (43.0-81.0); PLATELET COUNT (AUTO) 157 /CMM (150-450); RED BLOOD CELL COUNT(AUTO) 4.32 MIL/uL (4.5-6.0); WHITE BLOOD COUNT (AUTO) 3.5 K/uL (4.3-11.0)
[2019-08-05 07:55] LABS: CALCIUM, SERUM 8.4 mg/dL (8.5-10.1); CREATININE 1.2 mg/dL (0.6-1.3); PHOSPHORUS 3.5 mg/dL (2.5-4.9); POTASSIUM 4.3 mmol/L (3.5-5.1)
[2019-08-05 08:00] VITALS: BP 145/97
[2019-08-05] MEDS: BLOOD SUGAR DIAGNOSTIC 1 EACH STRIP VI SCH ×2 (08:37→11:57)
[2019-08-05] MEDS: INSULIN GLARGINE, 100 UNIT/ML CARTRIDGE SQ SCH (09:16)
[2019-08-05] MEDS: LEVETIRACETAM (250 MG) 250 MG TABLET PO SCH (09:21)
[2019-08-05] MEDS: ASPIRIN EC 81 MG TABLET.DR PO SCH (09:21)
[2019-08-05] MEDS: GABAPENTIN 300 MG CAPSULE PO SCH (09:21)
[2019-08-05 09:22] VITALS: BP 145/97
[2019-08-05] MEDS: CARVEDILOL 12.5 MG TABLET PO SCH (09:22)
--- NOTE | 2019-08-05 09:55 | NUR ---
WOUND CARE CONSULT: RECEIVED WOUND CONSULT TO SEE PT FOR RT FOREHEAD SUTURES, PRESENT ON ADMISSION. RN TO DISCUSS WITH MD TODAY. NO DRAINAGE, ERYTHEMA OR DRAINAGE NOTED. PT IS AMBULATORY AND CONTINENT. WILL SEE PRN. Addendum: 08/05/19 at 0956 by PAULETTE BENÍTEZ WNDNU Amended: Links added.
--- NOTE | 2019-08-05 10:17 | NUR ---
WOUND CARE: SUTURES REMOVED AFTER PT EXAMINED BY DR DAWN. PT TOLERATED WELL.
--- NOTE | 2019-08-05 10:35 | NUR ---
making plans for discharge.
--- NOTE | 2019-08-05 11:00 | NUR ---
pt. endorsed to zion mina.aware of dc today.
[2019-08-05] MEDS ORDERED: INSU100I30 SQ (12:00)
--- NOTE | 2019-08-05 14:05 | NUR ---
MS SET UP PERSON NOTE PT DISCHARGED TO HOME, SELF CARE. PT IS A/O X4, AFEBRILE. RESPIRATIONS ARE EVEN AND UNLABORED, NOT IN ANY ACUTE DISTRESS NOTED. PT DENIES ANY PAIN, SOB. ABDOMEN IS SOFT AND NONDISTENDED, BOWEL SOUNDS ARE PRESENT IN ALL 4 QUADRANTS UPON AUSCULTATION. DENIES ANY BLADDER DISCOMFORT. PT REFUSED PHOTOS TO BE TAKEN OF R/L KNEE. PT IS AMBULATORY. EXPLAINED THE IMPORTANCE, PT STATED "NO, MY KNEES ARE FINE." EXPLAINED DISCHARGE PAPERWORK TO PT INCLUDING PRESCRIPTIONS. PT VERBALIZED AND WRITTEN UNDERSTANDING. PT P/U BY FRIEND RHINA RAY VIA PERSONAL VEHICLE.
== END 2019-08-05 15:28 | disposition home or self-care (01) | DRG 637 ==
LOC: ER 12:04 → TELE 14:49 → MED 08-03 05:54
PROVIDERS: ADMIT Nurse Practitioner Acute Care; ATTEND Student in an Organized Health Care Education/Training Program
DX: E11.00 Type 2 diabetes mellitus with hyperosmolarity without nonketotic hyperglycemic-hyperosmolar coma (NKHHC) (principal); N17.0 Acute kidney failure with tubular necrosis; G93.41 Metabolic encephalopathy; E44.0 Moderate protein-calorie malnutrition; E87.1 Hypo-osmolality and hyponatremia; D68.69 Other thrombophilia; E11.22 Type 2 diabetes mellitus with diabetic chronic kidney disease; I12.9 Hypertensive chronic kidney disease with stage 1 through stage 4 chronic kidney disease, or unspecified chronic kidney disease; D63.8 Anemia in other chronic diseases classified elsewhere; E03.9 Hypothyroidism, unspecified; G89.29 Other chronic pain; F17.210 Nicotine dependence, cigarettes, uncomplicated; N18.9 Chronic kidney disease, unspecified; Z91.19 Patient's noncompliance with other medical treatment and regimen; Z95.0 Presence of cardiac pacemaker; E86.1 Hypovolemia; E11.65 Type 2 diabetes mellitus with hyperglycemia; I48.91 Unspecified atrial fibrillation; Z59.0 Homelessness; Z79.4 Long term (current) use of insulin; R74.0 Nonspecific elevation of levels of transaminase and lactic acid dehydrogenase [LDH]; E88.09 Other disorders of plasma-protein metabolism, not elsewhere classified; Z71.6 Tobacco abuse counseling; Z68.20 Body mass index [BMI] 20.0-20.9, adult; F19.10 Other psychoactive substance abuse, uncomplicated; K76.9 Liver disease, unspecified; F11.20 Opioid dependence, uncomplicated
CPT/HCPCS: 36415; 36600; 71045-TC; 80048-TC; 80053-TC; 80061-TC; 80305; 81000-TC; 82010-TC; 82140-TC; 82803-TC; 82962-TC; 83735-TC; 84100-TC; 84439-TC; 84443-TC; 85025-TC; 87081-TC; 97110-TC; 97116-TC; 97530-TC; G0378; G0480; J1815; J3475; J7030

== ENCOUNTER 2019-11-24 06:18 | Inpatient (IN) | payer OTHER ==
[~2019-11-24] VITALS: Ht 188 cm; Wt 68.0 kg
[~2019-11-24 06:18] MED LIST changes: -CARB200T8 PO; +FURO20TA4 PO; +GABA-534 PO; -HYDR-4354 PO; +HYDR-4384 PO; -HYDR25TA4 PO; +INSU100I14 SQ; +INSU100I30 SQ; -INSU100V7 SQ; +LEVE500T20 PO; +METF-440 PO; -TRAZ-257 PO
--- NOTE | 2019-11-24 06:58 | NUR ---
PT ADMITS TO METH USE FOOTWEAR PRODUCTION MACHINE OPERATOR. AWARE
--- NOTE | 2019-11-24 06:59 | NUR ---
PATIENT CAME TO ER BED 4 BIB RA FROM HOME C/O RESTLESSNESS AND BIZZARE BEHAVIOR AND FELLL AT HOME 5x HOURS REIKI PRACTITIONER +HEAD INJURY, -KO PER ROOMMATE'S REPORT. PATIENT IS AWAKE AND ALERT. NO SOB. BREATHING EVENLY ON 2L OF N/C. CONNECTED TO TROMBONE SLIDE ASSEMBLER.
--- NOTE | 2019-11-24 07:01 | NUR ---
FOREMAN SHIPPING DEPARTMENT AT BEDSIDE FOR BLOOD DRAW
--- NOTE | 2019-11-24 07:10 | NUR ---
UNABLE TO ESTABLISH AN IV ACCESS. WILL HAVE OTHER STAFF TRY.
--- NOTE | 2019-11-24 07:11 | NUR ---
URINE COLLECTED AND SENT TO THE LAB.
[2019-11-24 07:13] LABS: BASOPHILS % (AUTO) 1.2 % (0.0-2.0); EOSINOPHILS % (AUTO) 1.6 % (0.0-6.0); HEMATOCRIT 41 % (39-51); HEMOGLOBIN 13.3 g/dL (13.5-17.5); LYMPHOCYTES # (AUTO) 1.4 /CMM (0.8-4.8); LYMPHOCYTES % (AUTO) 37.9 % (20.0-44.0); MEAN CORPUSCULAR HGB CONC 33 g/dl (31.0-36.0); MEAN CORPUSCULAR VOLUME 94 fL (80-96); MONOCYTES # (AUTO) 0.4 /CMM (0.1-1.30); MONOCYTES % (AUTO) 11.1 % (2.0-12.0); NEUTROPHILS # (AUTO) 1.8 /CMM (1.8-8.9); NEUTROPHILS % (AUTO) 48.2 % (43.0-81.0); PLATELET COUNT (AUTO) 145 /CMM (150-450); RED BLOOD CELL COUNT(AUTO) 4.35 MIL/uL (4.5-6.0); WHITE BLOOD COUNT (AUTO) 3.8 K/uL (4.3-11.0)
--- NOTE | 2019-11-24 07:13 | NUR ---
PATIENT IS CHANGED INTO CLEAN BEDSHEETS AND GOWN.
--- NOTE | 2019-11-24 07:23 | NUR ---
TECH AT BEDSIDE FOR EKG
[2019-11-24 07:24] LABS: SERUM AMMONIA 16 umol/L (11-32)
[2019-11-24 07:25] LABS: CALCIUM, SERUM 8.2 mg/dL (8.5-10.1); CARBON DIOXIDE 26 mmol/L (21-32); CHLORIDE 104 mmol/L (98-107); CREATININE 1.2 mg/dL (0.6-1.3); GLUCOSE 193 mg/dL (74-106); SODIUM SERUM 138 mmol/L (136-145); UREA NITROGEN, BLOOD 16 mg/dL (7-18)
[2019-11-24 07:27] LABS: APPEARANCE,URINE Clear (CLEAR); BILIRUBIN,URINE Negative (NEGATIVE); BLOOD, URINE Moderate Ery/uL (NEGATIVE); COLOR,URINE Yellow (YELLOW); KETONES,URINE Negative (NEGATIVE); LEUKOCYTE ESTERASE ,URINE Negative (NEGATIVE); NITRITE, URINE Negative (NEGATIVE); PROTEIN,URINE >=300 mg/dl (NEGATIVE); UGLUCOSE >=1000 mg/dL (NEGATIVE)
[2019-11-24 07:27] LABS: POTASSIUM 2.8 mmol/L (3.5-5.1)
--- NOTE | 2019-11-24 07:27 | NUR ---
K+ 2.8 DR VELOZ NOTIFIED
[2019-11-24 07:36] LABS: THYROID STIMULATING HORMONE 36.713 uIU/mL (0.358-3.74)
[2019-11-24 07:39] LABS: BACTERIA,URINE Few /HPF (None Seen); SQUAMOUS EPITHELIAL CELL,UR Few /HPF (None Seen)
--- NOTE | 2019-11-24 07:48 | NUR ---
panel on-call paged
[2019-11-24 07:50] LABS: ALANINE AMINOTRANSFERASE 42 U/L (12-78); ALKALINE PHOSPHATASE 95 U/L (46-116); ASPARTATE AMINOTRANSFERASE 47 U/L (15-37); BILIRUBIN,DIRECT 0.2 mg/dL (0.0-0.2); BILIRUBIN,TOTAL 0.4 mg/dL (0.2-1.0); TOTAL PROTEIN, SERUM 7.3 g/dL (6.4-8.2)
[2019-11-24 07:51] LABS: ACETAMINOPHEN < 2 ug/ml (10-30); ALCOHOL, BLOOD < 3 mg/dL (0-0); SALICYLATE < 2.8 mg/dL (2.8-20.0)
[2019-11-24] MEDS ORDERED: POTASSIUM CHLORIDE 20 MEQ TAB.PRT.SR PO ONE ×2 (08:00→08:03)
--- NOTE | 2019-11-24 08:35 | NUR ---
received a call from the lab regarding covid 19 result "negative".
--- NOTE | 2019-11-24 09:02 | NUR ---
report given to danielle donovan for vannessa
[2019-11-24] MEDS ORDERED: INSU100V7 SQ (09:30)
--- NOTE | 2019-11-24 10:48 | NUR ---
wheeled patient via gurney accompanied by RN and emt in no distress. RN at bedside to assume care.
[2019-11-24] MEDS ORDERED: IV NS 0.9% 1,000 ML IV PRN (10:50)
[2019-11-24] MEDS ORDERED: ACETAMINOPHEN 325 MG TABLET PO PRN (11:00)
[2019-11-24] MEDS ORDERED: Z GUARD REMEDY 2 OZ OINT TP PRN (11:00)
[2019-11-24] MEDS ORDERED: ONDANSETRON HCL/PF 4 MG/2 ML VIAL IVP PRN (11:00)
[2019-11-24] MEDS: POTASSIUM CHLORIDE 20 MEQ TAB.PRT.SR PO SCH (11:10)
[2019-11-24] MEDS: LEVETIRACETAM (250 MG) 250 MG TABLET PO SCH ×2 (11:10→20:27)
[2019-11-24] MEDS: ENOXAPARIN SODIUM 40 MG/0.4 ML DISP.SYRIN SQ SCH (11:11)
[2019-11-24] MEDS ORDERED: DEXTROSE 50%-WATER 50 ML DISP.SYRIN IV PRN ×2 (11:30→22:30)
[2019-11-24] MEDS ORDERED: INSULIN ASPART/LISPRO 100 UNIT/ML CARTRIDGE SQ PRN (11:30)
[2019-11-24] MEDS ORDERED: INSULIN LISPRO/ASPART 100 UNIT/ML CARTRIDGE SQ SCH (12:00)
[2019-11-24] MEDS ORDERED: CARVEDILOL 25 MG TABLET PO SCH ×2 (12:07→17:00)
[2019-11-24] MEDS: BLOOD SUGAR DIAGNOSTIC 1 EACH STRIP IN SCH ×3 (12:11→21:18)
[2019-11-24] MEDS: FUROSEMIDE 20 MG TABLET PO SCH (12:14)
[2019-11-24] MEDS: CARVEDILOL 12.5 MG TABLET PO SCH ×2 (12:15→20:28)
--- NOTE | 2019-11-24 12:15 | NUR ---
SHEET MANUFACTURING SUPERVISOR NOTES INFORMED DR. SMALLS OF PATIENTS VS ORDERS TO GIVE HOME BP MEDICATIONS NOW. ORDER NOTED AND CARRIED OUT.
[2019-11-24] MEDS: LISINOPRIL (20MG) 20 MG TABLET PO SCH (12:16)
[2019-11-24] MEDS ORDERED: HYDROCODONE/APAP 10/325MG 1 EA TABLET PO PRN (13:00)
[2019-11-24] MEDS: METFORMIN 500 MG TABLET PO SCH (18:00)
[2019-11-24] MEDS: GABAPENTIN 300 MG CAPSULE PO SCH (18:00)
--- NOTE | 2019-11-24 19:11 | NUR ---
COMMERCIAL PARTS PROFESSIONAL: RECEIVED PATIENT Patient in bed, awake, A/O x3 easily oriented. Appears sleepy, tolerating room air, denies shortness of breath. Left IJ intact, IVF infusing. V Pacing in the Tele monitor. Denies pain. Fall precaution maintained. Addendum: 11/24/19 at 2055 by KEN CADE RN CLARIFICATION: Left EJ intact
[2019-11-24 20:00] VITALS: BP 168/89
[2019-11-24 20:15] VITALS: BP 168/89
--- NOTE | 2019-11-24 21:29 | NUR ---
MANAGER OF INVESTIGATIONS: LOW BLOOD GLUCOSE FSBS 33mg/dl with repeat shows 44mg/dl. Patient is sleeping, arouses easily. Left EJ infiltrated, D50 wasted. [place] juice given, patient able swallow without difficulty. Will recheck blood glucose and notify MD.
[2019-11-24] MEDS: INSULIN GLARGINE, 100 UNIT/ML CARTRIDGE SQ SCH (22:00)
--- NOTE | 2019-11-24 22:00 | NUR ---
HORTICULTURALIST: BLOOD GLUCOSE RECHECK Blood glucose improved 86mg/dl. Dr. Colon notified with new orders placed and held Lantus dose for tonight 11/24/19.
[2019-11-25] VITALS: BP 186/101
--- NOTE | 2019-11-25 00:10 | NUR ---
CANE CUTTER: ELEVATED BP JORDON Cordova reported BP 186/101, patient in bed denies dizziness, no c/o headache, N/V. Will recheck. Fall precaution maintained.
[2019-11-25 00:25] VITALS: BP 166/98
--- NOTE | 2019-11-25 00:30 | NUR ---
TELEPHONE BETTING CLERK: ELEVATED BP BP 166/98 patient still denies dizziness or headache, no c/o N/V. Fall precaution maintained.
--- NOTE | 2019-11-25 03:55 | NUR ---
HEALTH SCIENCE INSTRUCTOR: NO IV PERIPHERAL LINE Right EJ peripheral line infiltrated and was removed. Primary nurse and another RN attempted to re insert IV Peripheral line but unsuccessful with and without use of accu vein device. Notified Dr. Colon, per patent may have Midline. Charge nurse informed. Will endorse to oncoming RN.
[2019-11-25 04:55] VITALS: BP 136/74
--- NOTE | 2019-11-25 05:00 | NUR ---
THERAPY ADMINISTRATIVE ASSISTANT: BP IMPROVED BP 136/74
--- NOTE | 2019-11-25 06:28 | NUR ---
WAITER/WAITRESS BAR: END OF SHIFT REPORT Patient in bed, adequate sleep last night. V Pacing in the Tele monitor. O2 sat in Mid 90's, denies shortness of breath, tolerating oxygen in room air. Blood glucose 109mg/dl, improved. Plan for Midline insertion. Fall precaution maintained. Will endorse to oncoming RN.
[2019-11-25 07:04] LABS: BASOPHILS # (AUTO) 0.1 /CMM (0.0-0.2); BASOPHILS % (AUTO) 2.1 % (0.0-2.0); EOSINOPHILS % (AUTO) 5.9 % (0.0-6.0); HEMATOCRIT 41 % (39-51); HEMOGLOBIN 13.3 g/dL (13.5-17.5); LYMPHOCYTES # (AUTO) 1.6 /CMM (0.8-4.8); LYMPHOCYTES % (AUTO) 45.5 % (20.0-44.0); MEAN CORPUSCULAR HGB CONC 33 g/dl (31.0-36.0); MEAN CORPUSCULAR VOLUME 94 fL (80-96); MONOCYTES # (AUTO) 0.3 /CMM (0.1-1.30); MONOCYTES % (AUTO) 7.7 % (2.0-12.0); NEUTROPHILS # (AUTO) 1.4 /CMM (1.8-8.9); NEUTROPHILS % (AUTO) 38.8 % (43.0-81.0); PLATELET COUNT (AUTO) 124 /CMM (150-450); RED BLOOD CELL COUNT(AUTO) 4.37 MIL/uL (4.5-6.0); WHITE BLOOD COUNT (AUTO) 3.5 K/uL (4.3-11.0)
[2019-11-25] MEDS: BLOOD SUGAR DIAGNOSTIC 1 EACH STRIP IN SCH ×4 (07:23→22:04)
[2019-11-25] MEDS: LEVOTHYROXINE SODIUM 75 MCG TABLET PO SCH (07:24)
[2019-11-25 07:33] LABS: ALBUMIN 2.7 g/dL (3.4-5.0); BILIRUBIN,TOTAL 0.4 mg/dL (0.2-1.0); CALCIUM, SERUM 8.3 mg/dL (8.5-10.1); MAGNESIUM 1.5 mg/dL (1.8-2.4); PHOSPHORUS 3.5 mg/dL (2.5-4.9); POTASSIUM 3.3 mmol/L (3.5-5.1); TOTAL PROTEIN, SERUM 6.6 g/dL (6.4-8.2)
--- NOTE | 2019-11-25 07:34 | NUR ---
Tele/RN - Assessment Patient is awake, A/O x 3, no complaints overnight, calm and cooperative, tele shows v-pacing, denies pain, no apparent distress, stable on room air, no further episodes of hypoglycemia. Patient eating his breakfast at this time. Morning labs reviewed noted with potassium 3.3 and magnesium 1.5, will notify MD to order replacement. Patient for midline placement. Fall precautions maintained. Patient educated on plan of care. Will continue with current medical management.
[2019-11-25 08:00] VITALS: BP 157/89
[2019-11-25] MEDS: POTASSIUM CHLORIDE 20 MEQ TAB.PRT.SR PO SCH (08:00)
[2019-11-25] MEDS: GABAPENTIN 300 MG CAPSULE PO SCH ×2 (08:00→16:59)
[2019-11-25] MEDS: LEVETIRACETAM (250 MG) 250 MG TABLET PO SCH ×2 (08:00→21:53)
[2019-11-25] MEDS: LISINOPRIL (20MG) 20 MG TABLET PO SCH (08:00)
[2019-11-25] MEDS: ENOXAPARIN SODIUM 40 MG/0.4 ML DISP.SYRIN SQ SCH (08:01)
[2019-11-25] MEDS: FUROSEMIDE 20 MG TABLET PO SCH (08:01)
[2019-11-25] MEDS: CARVEDILOL 12.5 MG TABLET PO SCH ×2 (08:01→16:59)
[2019-11-25] MEDS: METFORMIN 500 MG TABLET PO SCH ×2 (08:01→17:03)
[2019-11-25] MEDS: ASPIRIN EC 81 MG TABLET.DR PO SCH (08:08)
[2019-11-25] MEDS ORDERED: LISINOPRIL (20MG) 20 MG TABLET PO SCH (09:00)
[2019-11-25] MEDS ORDERED: FUROSEMIDE 20 MG TABLET PO SCH (09:00)
--- NOTE | 2019-11-25 09:30 | NUR ---
MS/RN - Notes DC telemetry and transfer to [facility] with same orders.
[2019-11-25] MEDS ORDERED: Magnesium 1GM/D5W 100ML PREMIX 100 ML IV SCH (11:30)
[2019-11-25] MEDS ORDERED: POTASSIUM CHLORIDE 20 MEQ TAB.PRT.SR PO ONE (11:30)
--- NOTE | 2019-11-25 11:33 | NUR ---
MS/RN - Accu-check Initial POC blood glucose was 69 mg/dL, repeated test showed 77 mg/dL. Patient is asymptomatic for hypoglycemia, awake, A/O x 3, no c/o headache, no trembling/sweating noted. Lunch tray served.
--- NOTE | 2019-11-25 12:22 | NUR ---
Social Service consult requested by MD for methamphetamine use. Per MD notes, pt is a 69-year-old male presents the emergency department by ambulance for evaluation of an altered mental status. The patient is providing little to no history upon arrival. According to the salesperson pianos and organs report, they were called to this patient's home by his roommate after the patient was acting bizarre. He was apparently banging his head against the wall and may have hit his head. It is unclear exactly why he was acting bizarre. STAVE GRADER conducted chart review and met with the pt bedside. STAVE GRADER introduced self and purpose of the visit. Pt is alert and oriented x 4 with appropriate affect. Pt reports, he resides with roommates in a home in [place]. Pt receives SSI monthly. Pt ambulates with a walker. Pt reports, to make his own meals and go grocery shopping. Pt takes a taxi to his doctor appointments. Pt reports to be independent with his ADLs and IADLs. Pt denies drug use. STAVE GRADER informed pt his UDS was positive for methamphetamines. Pt responded, " I don't know about that". Pt denies using methamphetamines. Pt reports to drink Cognac every now and then. Pt denies history of psychiatric diagnosis or hospitalizations. Pt denies suicidal and homicidal ideations. Pt reports, he will take a taxi back home once medically cleared for discharge. STAVE GRADER provided pt with active listening, supportive counseling, emotional support and positive coping skills. Social Service to remain available for support as needed.
[2019-11-25] MEDS: Magnesium 1GM/D5W 100ML PREMIX 100 ML IV SCH ×2 (17:00→18:00)
[2019-11-25] MEDS: INSULIN REGULAR, HUMAN 100 UNIT/ML 3 ML VIAL SQ PRN ×2 (17:03→22:06)
--- NOTE | 2019-11-25 19:17 | NUR ---
MS/RN - End of shift summary Patient in no acute distress, no further episodes of hypoglycemia, no seizure activity noted, potassium and magnesium replacement given as ordered. PETROS mid-line flushing well. All needs attended. Will continue with current plan of care.
--- NOTE | 2019-11-25 19:35 | NUR ---
MS RN NOTES PATIENT IN BED, AWAKE, ALERT AND ORIENTED X 3. BREATHING EVEN AND UNLABORED ON ROOM AIR. SHOWS NO SIGNS OF ACUTE RESPIRATORY DISTRESS, NO ACUTE PAIN. IV ON PETROS MIDLINE ITS CLEAN DRY AND INTACT. SHOWS NO SIGNS OF INFILTRATION, NO REDNESS. SAFETY PRECAUTIONS IN PLACE. BED IN LOWEST POSITION, LOCKED, AND CALL LIGHT KEPT WITHIN REACH. WILL CONTINUE TO MONITOR.
[2019-11-25 20:00] VITALS: BP 151/77
[2019-11-25] MEDS: INSULIN GLARGINE, 100 UNIT/ML CARTRIDGE SQ SCH (22:00)
[2019-11-26] MEDS: BLOOD SUGAR DIAGNOSTIC 1 EACH STRIP IN SCH ×2 (06:39→15:02)
--- NOTE | 2019-11-26 06:43 | NUR ---
MS RN NOTES PATIENT IN BED, ASLEEP, ALERT AND ORIENTED X 3. BREATHING EVEN AND UNLABORED ON ROOM AIR. SHOWS NO SIGNS OF ACUTE RESPIRATORY DISTRESS, NO ACUTE PAIN. IV ON PETROS MIDLINE ITS CLEAN DRY AND INTACT. SHOWS NO SIGNS OF INFILTRATION, NO REDNESS. ALL DUE MEDICATIONS GIVEN. SAFETY PRECAUTIONS IN PLACE. BED IN LOWEST POSITION, LOCKED, AND CALL LIGHT KEPT WITHIN REACH. WILL ENDORSE TO ONCOMING NURSE.
--- NOTE | 2019-11-26 07:26 | NUR ---
MS/RN Opening note Patient received from shiftman. Sleeping soundly, appears in no distress or discomfort. Safety measures in place, bed in low setting, call light within reach. Will continue to monitor and ensure safety.
[2019-11-26] MEDS: POTASSIUM CHLORIDE 20 MEQ TAB.PRT.SR PO SCH (08:46)
[2019-11-26] MEDS: LEVOTHYROXINE SODIUM 75 MCG TABLET PO SCH (08:46)
[2019-11-26] MEDS: GABAPENTIN 300 MG CAPSULE PO SCH (08:46)
[2019-11-26] MEDS: METFORMIN 500 MG TABLET PO SCH (08:46)
[2019-11-26] MEDS: FUROSEMIDE 20 MG TABLET PO SCH (08:47)
[2019-11-26] MEDS: ASPIRIN EC 81 MG TABLET.DR PO SCH (08:47)
[2019-11-26] MEDS: LEVETIRACETAM (250 MG) 250 MG TABLET PO SCH (08:47)
[2019-11-26] MEDS: LISINOPRIL (20MG) 20 MG TABLET PO SCH (08:47)
[2019-11-26 08:48] VITALS: BP 155/78
[2019-11-26] MEDS: CARVEDILOL 12.5 MG TABLET PO SCH (08:48)
[2019-11-26] MEDS: ENOXAPARIN SODIUM 40 MG/0.4 ML DISP.SYRIN SQ SCH (08:52)
[2019-11-26] MEDS ORDERED: CARV12.52 PO (08:57)
--- NOTE | 2019-11-26 09:00 | NUR ---
MS/RN Medications Morning medications administered as ordered.
[2019-11-26 09:58] LABS: CALCIUM, SERUM 8.3 mg/dL (8.5-10.1); CREATININE 1.1 mg/dL (0.6-1.3); MAGNESIUM 1.6 mg/dL (1.8-2.4); POTASSIUM 4.2 mmol/L (3.5-5.1)
--- NOTE | 2019-11-26 10:00 | NUR ---
MS/RN S/B Dr Whitley Seen by Dr Whitley - patient to be discharged to home later today and follow up with primary care doctor.
--- NOTE | 2019-11-26 10:30 | NUR ---
MS/RN Exit care Exit care prepared and signed.
--- NOTE | 2019-11-26 14:30 | NUR ---
MS/RN Midline removal Midline removed, pressure dressing applied.
--- NOTE | 2019-11-26 15:02 | NUR ---
MS/park worker pickle water pump operator Transport arranged to pickle water pump operator patient at 5p.
--- NOTE | 2019-11-26 17:52 | NUR ---
MS/area counselor Patient discharged via ambulance in stable condition. Heplock and name bands previously removed. Report given to paramedics, friend Tadeo also aware and will be at the apartment to received patient.
== END 2019-11-26 17:45 | disposition home or self-care (01) | DRG 917 ==
LOC: ER 06:20 → TELE 09:47 → MED 11-25 08:59
PROVIDERS: ADMIT Nurse Practitioner Acute Care; ATTEND Nurse Practitioner Acute Care
PROC: B547ZZA Ultrasonography of Left Subclavian Vein, Guidance (ICD-10-PCS; principal; 2019-11-26)
PROC: 05H633Z Insertion of Infusion Device into Left Subclavian Vein, Percutaneous Approach (ICD-10-PCS; principal; 2019-11-26)
DX: T40.601A Poisoning by unspecified narcotics, accidental (unintentional), initial encounter (principal); G92 Toxic encephalopathy; I21.4 Non-ST elevation (NSTEMI) myocardial infarction; I50.33 Acute on chronic diastolic (congestive) heart failure; D68.69 Other thrombophilia; M16.11 Unilateral primary osteoarthritis, right hip; D63.8 Anemia in other chronic diseases classified elsewhere; E03.9 Hypothyroidism, unspecified; D72.819 Decreased white blood cell count, unspecified; D69.6 Thrombocytopenia, unspecified; E11.9 Type 2 diabetes mellitus without complications; E87.6 Hypokalemia; I11.0 Hypertensive heart disease with heart failure; I48.91 Unspecified atrial fibrillation; F17.210 Nicotine dependence, cigarettes, uncomplicated; Z79.4 Long term (current) use of insulin; M06.9 Rheumatoid arthritis, unspecified; Z95.0 Presence of cardiac pacemaker; Z96.649 Presence of unspecified artificial hip joint; Z96.659 Presence of unspecified artificial knee joint; Z91.19 Patient's noncompliance with other medical treatment and regimen; F19.129 Other psychoactive substance abuse with intoxication, unspecified; T40.7X1A Poisoning by cannabis (derivatives), accidental (unintentional), initial encounter; T43.621A Poisoning by amphetamines, accidental (unintentional), initial encounter; R40.2362 Coma scale, best motor response, obeys commands, at arrival to emergency department; R40.2142 Coma scale, eyes open, spontaneous, at arrival to emergency department; R40.2242 Coma scale, best verbal response, confused conversation, at arrival to emergency department; Y92.009 Unspecified place in unspecified non-institutional (private) residence as the place of occurrence of the external cause
CPT/HCPCS: 36415; 70450-TC; 71045-TC; 80048-TC; 80053-TC; 80061-TC; 80076-TC; 80305; 81000-TC; 82140-TC; 82962-TC; 83605-TC; 83735-TC; 83880; 84100-TC; 84439-TC; 84443-TC; 84484-TC; 85025-TC; 85730-TC; 87081-TC; 87086-TC; 93307-TC; G0378; G0480; J1650; J1815; J3475; J7030

== ENCOUNTER 2019-12-26 20:25 | Inpatient (IN) | payer OTHER ==
[~2019-12-26] VITALS: Ht 190.5 cm; Wt 72.6 kg
[~2019-12-26 20:25] MED LIST changes: -ASPI-1152 PO; +ASPI-1420 PO; +CARV12.52 PO; -INSU100I30 SQ; +INSU100V7 SQ
--- NOTE | 2019-12-26 20:25 | NUR ---
BIB EMS C/O HYPOGLYCEMIA. BS-LO PER EMS REPORT GIVEN GLUCAGON BY EMS WOUND CARE RN.PT TO BED 3, AWAKE, VERBALLY RESPONSIVE, DENIES PAIN/DISCOMFORT, -SOB, NOT IN ANY ACUTE DISTRESS, STARTED PIV ON RFA18. GIVEN D50 PER ER DOCTOR ORDER.
[2019-12-26] MEDS ORDERED: DEXTROSE 50%-WATER 50 ML DISP.SYRIN ONE (20:40)
[2019-12-26] MEDS ORDERED: DEXTROSE 50%-WATER 50 ML DISP.SYRIN IV ONE (21:00)
[2019-12-26] MEDS ORDERED: IV NS 0.9% 1,000 ML BAG IV ONE (21:00)
[2019-12-26 21:13] LABS: HEMATOCRIT 45 % (39-51); HEMOGLOBIN 14.3 g/dL (13.5-17.5); MEAN CORPUSCULAR HGB CONC 32 g/dl (31.0-36.0); MEAN CORPUSCULAR VOLUME 96 fL (80-96); RED BLOOD CELL COUNT(AUTO) 4.72 MIL/uL (4.5-6.0); WHITE BLOOD COUNT (AUTO) 3.9 K/uL (4.3-11.0)
[2019-12-26 21:14] LABS: BASOPHILS # (AUTO) 0.1 /CMM (0.0-0.2); EOSINOPHILS % (AUTO) 4.6 % (0.0-6.0); LYMPHOCYTES % (AUTO) 50.2 % (20.0-44.0); MONOCYTES # (AUTO) 0.6 /CMM (0.1-1.30); MONOCYTES % (AUTO) 14.9 % (2.0-12.0); NEUTROPHILS # (AUTO) 1.1 /CMM (1.8-8.9); NEUTROPHILS % (AUTO) 28.3 % (43.0-81.0); PLATELET COUNT (AUTO) 206 /CMM (150-450)
[2019-12-26] MEDS ORDERED: NALOXONE PREFILLED SYRINGE 2 MG/2 ML SYRINGE ONE (21:21)
[2019-12-26] MEDS ORDERED: ONDANSETRON HCL/PF 4 MG/2 ML VIAL ONE (21:22)
[2019-12-26] MEDS ORDERED: NALOXONE HCL 0.4 MG/ML AMPUL IV ONE (21:30)
[2019-12-26] MEDS ORDERED: ONDANSETRON HCL/PF 4 MG/2 ML VIAL IVP ONE (21:30)
[2019-12-26 22:28] LABS: ALANINE AMINOTRANSFERASE 34 U/L (12-78); ALBUMIN 3.4 g/dL (3.4-5.0); ALKALINE PHOSPHATASE 132 U/L (46-116); ASPARTATE AMINOTRANSFERASE 58 U/L (15-37); BILIRUBIN,DIRECT 0.2 mg/dL (0.0-0.2); BILIRUBIN,TOTAL 0.6 mg/dL (0.2-1.0); CALCIUM, SERUM 8.7 mg/dL (8.5-10.1); CARBON DIOXIDE 30 mmol/L (21-32); CHLORIDE 105 mmol/L (98-107); CREATININE 1.2 mg/dL (0.6-1.3); GLUCOSE 128 mg/dL (74-106); POTASSIUM 4.2 mmol/L (3.5-5.1); SODIUM SERUM 141 mmol/L (136-145); TOTAL PROTEIN, SERUM 8.6 g/dL (6.4-8.2); UREA NITROGEN, BLOOD 23 mg/dL (7-18)
[2019-12-26 22:30] LABS: SALICYLATE 2.1 mg/dL (2.8-20.0)
[2019-12-26 22:31] LABS: ACETAMINOPHEN < 2 ug/ml (10-30); ALCOHOL, BLOOD < 3 mg/dL (0-0)
[2019-12-26 22:33] LABS: SERUM AMMONIA < 10 umol/L (11-32)
[2019-12-26 22:55] LABS: APPEARANCE,URINE Clear (CLEAR); BILIRUBIN,URINE Negative (NEGATIVE); BLOOD, URINE Trace-lysed Ery/uL (NEGATIVE); COLOR,URINE Yellow (YELLOW); KETONES,URINE Negative (NEGATIVE); LEUKOCYTE ESTERASE ,URINE Negative (NEGATIVE); NITRITE, URINE Negative (NEGATIVE); PROTEIN,URINE 100 mg/dl (NEGATIVE); UGLUCOSE 100 MG/DL mg/dL (NEGATIVE)
--- NOTE | 2019-12-26 23:00 | NUR ---
urine collected and sent to lab
[2019-12-26 23:32] LABS: BACTERIA,URINE Rare /HPF (None Seen); SQUAMOUS EPITHELIAL CELL,UR Few /HPF (None Seen); WBC,URINE NONE SEEN /HPF (0-3)
[2019-12-27] MEDS ORDERED: Z GUARD REMEDY 2 OZ OINT TP PRN (02:00)
[2019-12-27] MEDS ORDERED: HYDROCODONE/APAP 5/325MG TABLET PO PRN (02:00)
[2019-12-27] MEDS ORDERED: ZOLPIDEM TARTRATE 5 MG TABLET PO PRN (02:00)
[2019-12-27] MEDS ORDERED: MAG HYDROX/AL HYDROX/SIMETH 30 ML UDC PO PRN (02:00)
[2019-12-27] MEDS ORDERED: ONDANSETRON HCL/PF 4 MG/2 ML VIAL IVP PRN (02:00)
[2019-12-27] MEDS ORDERED: ACETAMINOPHEN 325 MG TABLET PO PRN (02:00)
[2019-12-27] MEDS ORDERED: DEXTROSE 50%-WATER 50 ML DISP.SYRIN IV PRN (02:00)
[2019-12-27] MEDS ORDERED: MAGNESIUM HYDROXIDE 30 ML UDC PO PRN (02:00)
--- NOTE | 2019-12-27 03:10 | NUR ---
M/S 313-2
--- NOTE | 2019-12-27 03:30 | NUR ---
report given to shae donovan for vannessa pt transported to 3rd floor
[2019-12-27 04:00] VITALS: BP 162/97
[2019-12-27] MEDS ORDERED: OXYC-133 PO (04:03)
--- NOTE | 2019-12-27 04:05 | NUR ---
ADMISSION NOTES: RECEIVED REPORT FROM KRYSTIAN ASIF. PT BROUGHT TO THE UNIT VIA GURNEY, ARRIVED AT 0337. TRANSFERRED TO HOSPITAL BED. KEPT COMFORTABLE. PT A/O X4, ON RA RESPIRATIONS EVEN AND UNLABORED. IV ACCESS PATENT AND FLUSHING WELL, ON HL. PACEMAKER ON LEFT CW. SKIN ASSESSMENT PERFORMED, NO SKIN ISSUES NOTED. PT SUPPOSED TO HAVE SURGERY FOR RIGHT HIP, STATED HE FELL AT HOME. VS TAKEN AND RECORDED. ORIENTED PT TO UNIT POLICY AND HOURLY ROUNDING. FINGERSTICK BLOOD GLUCOSE CHECK PERFORMED AND RESULT OBTAINED IS 191. PT STATED HE'S VERY HUNGRY, PROVIDED WITH SANDWICH AND CRANBERRY JUICE, CONSUMED 100%. PT REFUSING SCD DESPITE PROVIDING EDUCATION STATED HE'S LEG IS HURTING AND NOT FEELING COMFORTABLE WITH THE SCD PUMP. INVENTORY OF BELONGINGS PERFORMED BY JORDON ZAYAS. V-PACING HR 91. SAFETY PRECAUTIONS FOR FALL INITIATED, CALL LIGHT IN REACH, WILL CONTINUE MONITORING PT.
--- NOTE | 2019-12-27 04:10 | NUR ---
RN NOTES/EPIC PAGED: PAGED EPIC MD DIELECTRIC EMBOSSING MACHINE OPERATOR REGARDING PT'S C/O 10/10 RIGHT HIP, RIGHT SHOULDER AND LEG PAIN. STATED HE'S TAKING PERCOCET 10/325 MG TAB PO Q4HRS PRN FOR PAIN.
--- NOTE | 2019-12-27 04:41 | NUR ---
RN NOTES/EPIC RETURN CALL: RECEIVED CALL BACK FROM DR LOZANO, RELAYED PT'S C/O 01/30 RIGHT HIP AND SHOULDER PAIN, PER MD TO CHANGE/DC NORCO, TELEPHONE ORDER RECEIVED TO ADMINISTER PERCOCET 5/325 MG TAB PO Q4HRS PRN FOR PAIN. INFORMED MD PT TAKES [id number], MD STICK WITH HIS ORDER FOR 5/325. ORDER READ BACK, VERIFIED AND CARRIED OUT. INFORMED PT, PT AGREE WITH THE MEDICATION.
[2019-12-27] MEDS: IV D5/0.45 NACL 1,000 ML IV PRN ×2 (04:55→18:46)
[2019-12-27] MEDS: oxyCODONE/APAP (5/325 MG) 1 UDTAB TABLET PO PRN ×3 (04:55→21:16)
--- NOTE | 2019-12-27 04:55 | NUR ---
PRN PERCOCET: PT C/O RIGHT SHOULDER AND RIGHT HIP PAIN AGREE TO TAKE PERCOCET (PT PREFERRED MEDICATION). PRN PERCOCET 5/325 MG TAB PO ADMINISTERED AT THIS TIME.
[2019-12-27 05:00] VITALS: BP 150/88
[2019-12-27] MEDS: BLOOD SUGAR DIAGNOSTIC 1 EACH STRIP IN SCH ×4 (06:12→21:05)
[2019-12-27] MEDS: INSULIN REGULAR, HUMAN 100 UNIT/ML 3 ML VIAL SQ PRN ×3 (06:14→21:12)
--- NOTE | 2019-12-27 06:15 | NUR ---
ACCU CHECK 334: FINGERSTICK BLOOD SUGAR CHECK PERFORMED, RESULT OBTAINED IS 334, PT REFUSED FOR COVERAGE STATED HE'S SUGAR BEEN LOW SINCE LAST NIGHT, THIS IS THE FIRST TIME IT WENT UP SO HE DOESN'T WANT TO ENCOUNTER SAME PROBLEM. EDUCATION PROVIDED TO PT REGARDING RISK AND BENEFITS, IMPROVE GLUCEMIC CONTROL.
--- NOTE | 2019-12-27 06:48 | NUR ---
END OF SHIFT REPORT: Prn Percocet administered for c/o right shoulder and hip pain. Accu check performed result is 334, pt refused insulin coverage. iv access remains patent and flushing well, infusing with d5 ns at 75ml/hr, no s/s of iv infiltration noted. Pt remains a/o x4, responsive, resting at the moment, respirations even and unlabored, denies any chest pain. Safety precautions for fall remains engaged, call light in reach, will endorse to day rn for vannessa.
--- NOTE | 2019-12-27 07:52 | NUR ---
TELE/RN OPENING NOTE Patient in bed, A&O x 4. Denies any pain and discomfort at this time. No s/s of hypo/hyperglycemia noted. Breathing even and non-labored on RA, no SOB noted. No cardiac distress noted. On tele monitor, reading V-pacing 60. IV access noted on L wrist #18 gauge and RAC #18 gauge, patent and intact and flushing well. Running D51/2 NS @75 ml/hr. No s/s infection, bleeding, or infiltration noted on site. Bed locked to its lowest position, side rails x2 up, instructed pt to use call light when in need of assistance. Will continue current plan of care.
[2019-12-27 08:00] VITALS: BP 151/73
[2019-12-27 08:02] LABS: THYROID STIMULATING HORMONE 22.676 uIU/mL (0.358-3.74)
[2019-12-27] MEDS: ENOXAPARIN SODIUM 40 MG/0.4 ML DISP.SYRIN SQ SCH (08:32)
--- NOTE | 2019-12-27 11:00 | NUR ---
TELE/RN NOTE Followed up patient's med recon to Dr. Parekh, states "okay."
--- NOTE | 2019-12-27 11:30 | NUR ---
TELE/RN NOTE Dr. Parekh at bedside, patient states he was hospitalized recently but unable to remember which hospital he got admitted in. Dr. Parekh asked to obtain medical records from that hospital, tried calling patient's roommate, Nehemias, to obtain more information but there was no response and voicemail was full. Will follow up.
--- NOTE | 2019-12-27 15:00 | NUR ---
TELE/RN NOTE Tried reaching out to Nehemias regarding pt's recent hospitalization, still no response.
--- NOTE | 2019-12-27 15:42 | NUR ---
NOTE BELOW IS A DUPLICATE
--- NOTE | 2019-12-27 16:41 | NUR ---
MS/RN NOTE BS 110, non-administered insulin per sliding scale. Will continue to monitor.
--- NOTE | 2019-12-27 18:06 | NUR ---
TELE/RN NOTE Unable to reach Nehemias, pt's roommate. Patient states it might be [facility] where he was last hospitalized. Sent and faxed medical record release form to [facility] - Medical Records Department.
--- NOTE | 2019-12-27 18:36 | NUR ---
TELE/RN NOTE Patient accidentally pulled out IV on L wrist #18 with catheter intact. No s/s of bleeding, infection, or infiltration noted on site, taped a clean dry dressing on the site. R AC #18 gauge remains patent and intact.
--- NOTE | 2019-12-27 18:50 | NUR ---
TELE/RN CLOSING NOTE Patient resting in bed, A&O x 4. Denies any pain and discomfort at this time, last percocet taken at 1617 for right hip and shoulder 10/10 aching pain. No s/s of hypo/hyperglycemia noted. Breathing even and non-labored on RA. No respiratory or cardiac distress noted. On tele monitor, reading V-pacing 90. IV access noted on RAC #18 gauge, patent and intact and flushing well. Running D5 1/2 NS @75 ml/hr. No s/s infection, bleeding, or infiltration noted on site. Sensation from all peripheral extremities intact. Fall precautions maintained. Will endorse to financial institution treasurer nurse.
[2019-12-27 20:00] VITALS: BP 135/65
--- NOTE | 2019-12-27 20:14 | NUR ---
TELE/RN OPENING NOTE Patient awake in bed, a/o x4, bedbound. Face is symmetrical, tongue midline. No tracheal deviation. No JVD. Patient on room air, breath sounds even, clear, unlabored. No respiratory distress or SOB noted. Tele monitor V-pacing in the 90s. Skin is warm, pink, dry appropriate for ethnicity. IV RAC patent and intact, running D51/2NS 75 ml/hr. No signs of redness or infiltration. Bowel sounds normoactive in all quadrants. Abdomen round, soft, non-tender. Patient is continent, void via urinal. Bed in low position, wheels locked, side rails up x2, call light within reach.
--- NOTE | 2019-12-27 21:21 | NUR ---
TELE/RN NOTE Patient c/o hip pain level 9, sharp pain. Administered PRN pain medication as ordered. VSS. Will continue to monitor.
[2019-12-27 21:37] VITALS: BP 135/65
[2019-12-28] VITALS: BP 145/63
[2019-12-28] MEDS: oxyCODONE/APAP (5/325 MG) 1 UDTAB TABLET PO PRN ×2 (03:29→16:40)
[2019-12-28] MEDS: INSULIN REGULAR, HUMAN 100 UNIT/ML 3 ML VIAL SQ PRN ×3 (06:35→17:16)
[2019-12-28] MEDS: BLOOD SUGAR DIAGNOSTIC 1 EACH STRIP IN SCH ×4 (06:37→21:02)
[2019-12-28] MEDS: IV D5/0.45 NACL 1,000 ML IV PRN (06:45)
[2019-12-28 06:47] LABS: BASOPHILS # (AUTO) 0.1 /CMM (0.0-0.2); BASOPHILS % (AUTO) 1.8 % (0.0-2.0); EOSINOPHILS % (AUTO) 3.6 % (0.0-6.0); HEMATOCRIT 38 % (39-51); HEMOGLOBIN 12.2 g/dL (13.5-17.5); LYMPHOCYTES # (AUTO) 2.3 /CMM (0.8-4.8); LYMPHOCYTES % (AUTO) 58.1 % (20.0-44.0); MEAN CORPUSCULAR HGB CONC 33 g/dl (31.0-36.0); MEAN CORPUSCULAR VOLUME 93 fL (80-96); MONOCYTES # (AUTO) 0.6 /CMM (0.1-1.30); MONOCYTES % (AUTO) 14.1 % (2.0-12.0); NEUTROPHILS # (AUTO) 0.9 /CMM (1.8-8.9); NEUTROPHILS % (AUTO) 22.4 % (43.0-81.0); PLATELET COUNT (AUTO) 174 /CMM (150-450); RED BLOOD CELL COUNT(AUTO) 4.04 MIL/uL (4.5-6.0); WHITE BLOOD COUNT (AUTO) 3.9 K/uL (4.3-11.0)
--- NOTE | 2019-12-28 06:50 | NUR ---
TELE/RN CLOSING NOTE Patient awake in bed, a/o x4, ambulatory ad yamileth. Patient on room air, breath sounds even, clear, unlabored. No respiratory distress or SOB noted. Tele monitor V-pacing in the 80s. Skin is warm, pink, dry appropriate for ethnicity. IV PETROS 22g patent and intact, running D51/2NS @ 75 ml/hr. No signs of redness or infiltration. 1 bowel movement this shift, moderate, brown, formed. Patient is continent, void via urinal 800 ml clear yellow urine. Bed in low position, wheels locked, side rails up x2, call light within reach.
[2019-12-28 07:16] LABS: ALBUMIN 2.4 g/dL (3.4-5.0); BILIRUBIN,TOTAL 0.2 mg/dL (0.2-1.0); CREATININE 1.1 mg/dL (0.6-1.3); MAGNESIUM 1.5 mg/dL (1.8-2.4); PHOSPHORUS 2.5 mg/dL (2.5-4.9); POTASSIUM 4.8 mmol/L (3.5-5.1); TOTAL PROTEIN, SERUM 6.6 g/dL (6.4-8.2)
--- NOTE | 2019-12-28 07:17 | NUR ---
ROUGH RICE GRADER OPENING NOTES RECEIVED PT AWAKE IN BED IN NO ACUTE SIGNS OF DISTRESS. A/O X4. ABLE TO MAKE NEEDS KNOWN, DENIES PAIN OR ANY DISCOMFORTS AT THIS TIME. ON ROOM AIR, RESPIRATIONS EVEN AND UNLABORED. TELEMONITORING SHOWS SR AND V-PACING WITH HR ON THE 60'S, NO C/O OF CARDIAC DISTRESS VOICED AT THIS TIME. IV ACCESS ON PETROS G#22 INTACT AND PATENT,IVF OF D5 1/2 NS RUNNING AT 75 ML/HR. BED LOCKED AND IN LOWEST POSITION. SIDE-RAILS UP X2. CALL LIGHT WITHIN EASY REACH OF PT. WILL CONTINUE TO MONITOR PT ACCORDINGLY.
[2019-12-28 08:00] VITALS: BP 137/69
[2019-12-28] MEDS: ENOXAPARIN SODIUM 40 MG/0.4 ML DISP.SYRIN SQ SCH (09:07)
[2019-12-28] MEDS: Magnesium 1GM/D5W 100ML PREMIX 100 ML IV SCH ×2 (10:44→11:56)
[2019-12-28 16:00] VITALS: BP 110/64
--- NOTE | 2019-12-28 16:59 | NUR ---
RN NOTES PT C/O OF RIGHT SHOULDER AND RIGHT HIP PAIN WITH SCALE OF 7/10. PRN PERCOCET 5/325MG TAB GIVEN AT 1640. WILL CONTINUE TO MONITOR AND REASSESS PT.
--- NOTE | 2019-12-28 18:36 | NUR ---
MS RN CLOSING NOTES PT AWAKE AND RESTING IN BED AT THIS TIME. A/O X4. ABLE TO MAKE NEEDS KNOWN. ON ROOM AIR, TOLERATING WELL WITH NO ACUTE RESPIRATORY DISTRESS NOTED DURING THE DAY. DIABETIC STATUS CLOSELY MONITORED, NO S/S OF HYPO/HYPERGLYCEMIA NOTED. IV SL ON PETROS G#22 INTACT, PATENT AND FLUSHES WELL. ALL NEEDS AND CARE ATTENDED WELL. SAFETTY MEASURES KEPT IN PLACE: BED LOCKED AND IN LOWEST POSITION. SIDE-RAILS UP X2. CALL LIGHT WITHIN EASY REACH OF PT. WILL ENDORSE TO REGIONAL CLINICAL DIRECTOR NURSE FOR UNRULY.
--- NOTE | 2019-12-28 19:30 | NUR ---
TELE/RN OPENING NOTE Patient awake in bed, a/o x4, amb with walker. Face is symmetrical. No JVD. Patient on room air, breath sounds even, clear, unlabored. No respiratory distress or SOB noted. Skin is warm, pink, dry appropriate for ethnicity. IV PETROS patent and intact, saline locked. No signs of redness or infiltration. Bowel sounds normoactive in all quadrants. Abdomen round, soft, non-tender. Patient is continent, void via urinal. Bed in low position, wheels locked, side rails up x2, call light within reach.
[2019-12-28 20:00] VITALS: BP 145/81
[2019-12-28 20:57] VITALS: BP 145/81
--- NOTE | 2019-12-28 21:00 | NUR ---
RN NOTES RECEIVED REPORT FROM YEFRI AGUAYO. PATIENT IS RESTING COMFORTABLY AT THIS TIME, SAFETY MEASURES IN PLACE, CALL LIGHT WITH IN EASY REACH, BED IN LOW LOCKED POSITION, ALL NEEDS ANTICIPATED, WILL CONTINUE TO MONITOR ACCORDINGLY.
--- NOTE | 2019-12-29 06:16 | NUR ---
RN NOTES ALL NEEDS ATTENDED AND MET, SAFETY MEASURES IN PLACE, CALL LIGHT WITHIN EASY REACH, WILL ENDORSE TO AM NURSE FOR CONTINUITY OF CARE.
[2019-12-29] MEDS: INSULIN REGULAR, HUMAN 100 UNIT/ML 3 ML VIAL SQ PRN ×3 (06:46→17:21)
[2019-12-29] MEDS: BLOOD SUGAR DIAGNOSTIC 1 EACH STRIP IN SCH ×3 (06:48→17:19)
--- NOTE | 2019-12-29 07:00 | NUR ---
MS RN OPENING NOTE RECEIVED PT AWAKE IN BED AT THIS TIME. AOX4, NO SOB NOTED, NO S/S OF ANY ACUTE DISTRESS NOTED. NO C/O PAIN AT THIS TIME. RESPIRATIONS ARE EVEN AND UNLABORED WITH EQUAL RISE AND FALL IN CHEST. IV ACCESS NOTED IN PETROS G#22, PATENT, INTACT AND FLUSHING WELL. PT USES URINAL. FALL AND SAFETY PRECAUTION IN PLACE AND MAINTAINED AT ALL TIMES. BED IN LOWEST LOCKED POSITION, HOB ELEVATED, RAILS UP X 2, CALL LIGHT WITHIN REACH. WILL CONTINUE TO MONITOR
[2019-12-29 07:48] LABS: BASOPHILS # (AUTO) 0.1 /CMM (0.0-0.2); BASOPHILS % (AUTO) 2.9 % (0.0-2.0); EOSINOPHILS % (AUTO) 5.6 % (0.0-6.0); HEMATOCRIT 40 % (39-51); HEMOGLOBIN 12.7 g/dL (13.5-17.5); LYMPHOCYTES # (AUTO) 1.9 /CMM (0.8-4.8); LYMPHOCYTES % (AUTO) 49.9 % (20.0-44.0); MEAN CORPUSCULAR HGB CONC 32 g/dl (31.0-36.0); MEAN CORPUSCULAR VOLUME 94 fL (80-96); MONOCYTES # (AUTO) 0.5 /CMM (0.1-1.30); MONOCYTES % (AUTO) 12.1 % (2.0-12.0); NEUTROPHILS # (AUTO) 1.1 /CMM (1.8-8.9); NEUTROPHILS % (AUTO) 29.5 % (43.0-81.0); PLATELET COUNT (AUTO) 142 /CMM (150-450); RED BLOOD CELL COUNT(AUTO) 4.26 MIL/uL (4.5-6.0); WHITE BLOOD COUNT (AUTO) 3.8 K/uL (4.3-11.0)
[2019-12-29 07:57] LABS: CALCIUM, SERUM 8.4 mg/dL (8.5-10.1); CREATININE 1.1 mg/dL (0.6-1.3); MAGNESIUM 1.8 mg/dL (1.8-2.4); PHOSPHORUS 2.4 mg/dL (2.5-4.9); POTASSIUM 4.9 mmol/L (3.5-5.1)
[2019-12-29 08:03] VITALS: BP 153/77
[2019-12-29] MEDS: ENOXAPARIN SODIUM 40 MG/0.4 ML DISP.SYRIN SQ SCH (09:16)
[2019-12-29] MEDS: oxyCODONE/APAP (5/325 MG) 1 UDTAB TABLET PO PRN ×2 (09:18→15:20)
--- NOTE | 2019-12-29 09:18 | NUR ---
PT C/O OF GUARDING, ACHING BACK, SHOULDER AND LEFT HIP PAIN ON A SCALE OF 10/10. VS WNL. PER PT REQUEST, OXYCODONE 5-325MG PO Q4H PRN FOR PAIN ADMINISTERED AT THIS TIME. WILL CONTINUE TO MONITOR
[2019-12-29] MEDS ORDERED: NEUTRA PHOS 1 POWD.PACKET PO ONE (11:00)
[2019-12-29] MEDS ORDERED: NEUTRA PHOS 1 POWD.PACKET NG ONE (11:00)
--- NOTE | 2019-12-29 15:22 | NUR ---
PT C/O OF ACHING GENERALIZED PAIN ON A SCALE OF 10/10. VS WNL. PER PT REQUEST, OXYCODONE 5-325MG PO Q4H PRN FOR PAIN ADMINISTERED AT THIS TIME. WILL CONTINUE TO MONITOR
[2019-12-29 16:50] VITALS: BP 150/77
--- NOTE | 2019-12-29 19:10 | NUR ---
MS DETECTIVE PRIVATE EYE NOTES PATIENT DISCHARGED TO HOME AT THIS TIME. PT IN STABLE CONDITION. A/O X4. ALL CARE, NEEDS, TREATMENT AND MEDICATIONS ADMINISTERED ANTICIPATED PER ORDER. PT DISCHARGE INSTRUCTIONS PROVIDED AND PT VERBALIZED UNDERSTANDING. ALL BELONGINGS ACCOUNTED SIGNED BY PT AND FILED IN CHART. IV ACCESS REMOVED, PRESSURE APPLIED, SECURE WITH GAUZE AND TAPE. NO SIGN OF BLEEDING OR INFILTRATION NOTED. PT TRANSPORTED BY WHEELCHAIR TO [facility] BY JORDON ZAYAS. PT PICKED UP BY CAB. MD AND CHARGE NURSE AWARE OF DISCHARGE.
== END 2019-12-29 19:55 | disposition home or self-care (01) | DRG 638 ==
LOC: ER 20:28 → TELE 12-27 03:15 → MED 12-28 08:56
PROVIDERS: ADMIT Hospitalist
DX: E11.649 Type 2 diabetes mellitus with hypoglycemia without coma (principal); D68.59 Other primary thrombophilia; I50.32 Chronic diastolic (congestive) heart failure; I11.0 Hypertensive heart disease with heart failure; I25.2 Old myocardial infarction; I48.91 Unspecified atrial fibrillation; E03.9 Hypothyroidism, unspecified; I25.10 Atherosclerotic heart disease of native coronary artery without angina pectoris; M16.11 Unilateral primary osteoarthritis, right hip; M06.9 Rheumatoid arthritis, unspecified; Z79.4 Long term (current) use of insulin; Z79.84 Long term (current) use of oral hypoglycemic drugs; Z79.82 Long term (current) use of aspirin; Z79.899 Other long term (current) drug therapy; D63.8 Anemia in other chronic diseases classified elsewhere; G40.909 Epilepsy, unspecified, not intractable, without status epilepticus; F19.10 Other psychoactive substance abuse, uncomplicated; Z96.659 Presence of unspecified artificial knee joint; F17.200 Nicotine dependence, unspecified, uncomplicated; D69.6 Thrombocytopenia, unspecified
CPT/HCPCS: 36415; 70450-TC; 71045-TC; 80048-TC; 80053-TC; 80061-TC; 80076-TC; 80305; 81000-TC; 82140-TC; 82962-TC; 83735-TC; 84100-TC; 84443-TC; 84484-TC; 85025-TC; 85730-TC; 87081-TC; C9803-CS; G0378; G0480; J1650; J1815; J2310; J2405; J3475; J3490

== ENCOUNTER 2020-01-25 10:18 | Emergency (ER) | payer OTHER ==
[~2020-01-25 10:18] MED LIST changes: -CARV12.52 PO; -HYDR-4384 PO; +OXYC-133 PO
[2020-01-25] MEDS ORDERED: ERYTHROMYCIN BASE OPHTH 3.5 GM TUBE OP ONE (11:00)
[2020-01-25] MEDS ORDERED: ERYTHROMYCIN BASE OPHTH 3.5 GM TUBE ONE (11:00)
== END 2020-01-25 12:36 | disposition home or self-care (01) ==
DX: H10.9 Unspecified conjunctivitis (principal); I10 Essential (primary) hypertension; E11.9 Type 2 diabetes mellitus without complications; E03.9 Hypothyroidism, unspecified; F17.200 Nicotine dependence, unspecified, uncomplicated; Z95.0 Presence of cardiac pacemaker; Z98.890 Other specified postprocedural states; Z79.899 Other long term (current) drug therapy; Z79.84 Long term (current) use of oral hypoglycemic drugs; Z79.82 Long term (current) use of aspirin

== ENCOUNTER 2020-02-06 05:44 | Emergency (ER) | payer OTHER ==
[~2020-02-06] VITALS: Ht 190.5 cm; Wt 72.6 kg
--- NOTE | 2020-02-06 05:56 | NUR ---
BIBRA C/O BILATERAL PINK EYE, RAN OUT OF ATB EYE DROPS. PLACED IN BED 11 ON MONITOR AND PULSE OX. AWAITING MD FOR EVAL AND ORDERS. NO ACUTE DISTRESS NOTED. VSS.
[2020-02-06] MEDS ORDERED: FLUORESCEIN SODIUM OPHTH 1 EA STRIP ONE (06:11)
[2020-02-06] MEDS ORDERED: PROPARACAINE HCL OPHTH 15 ML BOTTLE ONE (06:12)
[2020-02-06] MEDS ORDERED: FLUORESCEIN SODIUM OPHTH 1 EA STRIP OP ONE (06:30)
[2020-02-06] MEDS ORDERED: PROPARACAINE HCL OPHTH 15 ML BOTTLE OP ONE (06:30)
--- NOTE | 2020-02-06 06:38 | NUR ---
Patient discharged to home in stable condition. Written and verbal after care instructions given. Patient verbalizes understanding of instruction and RX. Pt wheeled out to waiting room due to him stating he has chronic pain on L leg. VSS.
[2020-02-06 06:40] VITALS: BP 142/79
== END 2020-02-06 06:41 | disposition home or self-care (01) ==
LOC: ER 05:56
DX: H10.89 Other conjunctivitis (principal); E11.9 Type 2 diabetes mellitus without complications; I10 Essential (primary) hypertension; Z95.0 Presence of cardiac pacemaker; E03.9 Hypothyroidism, unspecified; Z96.659 Presence of unspecified artificial knee joint; Z96.649 Presence of unspecified artificial hip joint; Z79.4 Long term (current) use of insulin; Z79.82 Long term (current) use of aspirin; Z79.899 Other long term (current) drug therapy

== ENCOUNTER 2020-02-09 11:07 | Emergency (ER) | payer OTHER ==
[~2020-02-09] VITALS: Ht 190.5 cm; Wt 71.7 kg
--- NOTE | 2020-02-09 11:15 | NUR ---
VISUAL ACUITY OS 20/50 OD 20/50 OU 20/50
[2020-02-09 11:24] VITALS: BP 158/101
--- NOTE | 2020-02-09 11:39 | NUR ---
Patient discharged to home in stable condition. Written and verbal after care instructions given. Patient verbalizes understanding of instruction.
== END 2020-02-09 11:39 | disposition home or self-care (01) ==
LOC: ER 11:11
DX: H10.89 Other conjunctivitis (principal); I10 Essential (primary) hypertension; E11.9 Type 2 diabetes mellitus without complications; E03.9 Hypothyroidism, unspecified; F17.200 Nicotine dependence, unspecified, uncomplicated; Z95.0 Presence of cardiac pacemaker; Z96.649 Presence of unspecified artificial hip joint; Z98.890 Other specified postprocedural states; Z79.899 Other long term (current) drug therapy; Z79.4 Long term (current) use of insulin; Z79.82 Long term (current) use of aspirin

== ENCOUNTER 2020-02-14 10:27 | Inpatient (IN) | payer OTHER ==
[~2020-02-14] VITALS: Ht 190.5 cm; Wt 72.6 kg
[2020-02-14] VITALS (17 sets, daily range): BP systolic 110–219; BP diastolic 62–109
--- NOTE | 2020-02-14 11:40 | NUR ---
BIBS TO ER BED 13. AAOX4. NOT IN RESP DISTRESS, BREATHING EVEN AND UNLABORED. AMBULATORY WITH A AIDE OF WALKER. CAME IN FOR FREQUENT URINATION WHICH HAS BEEN GOING OF FOR AWHILE. PT STATES THAT SOMETIMES HE CANT EVEN CONTROL THE URGE. WAS AT THE BEDSIDE FOR EVAL.
[2020-02-14 12:14] LABS: BASOPHILS % (AUTO) 0.8 % (0.0-2.0); EOSINOPHILS % (AUTO) 0.1 % (0.0-6.0); HEMATOCRIT 41 % (39-51); HEMOGLOBIN 12.9 g/dL (13.5-17.5); LYMPHOCYTES # (AUTO) 0.7 /CMM (0.8-4.8); LYMPHOCYTES % (AUTO) 18.6 % (20.0-44.0); MEAN CORPUSCULAR HGB CONC 32 g/dl (31.0-36.0); MEAN CORPUSCULAR VOLUME 95 fL (80-96); MONOCYTES # (AUTO) 0.3 /CMM (0.1-1.30); MONOCYTES % (AUTO) 8.3 % (2.0-12.0); NEUTROPHILS # (AUTO) 2.8 /CMM (1.8-8.9); NEUTROPHILS % (AUTO) 72.2 % (43.0-81.0); PLATELET COUNT (AUTO) 137 /CMM (150-450); RED BLOOD CELL COUNT(AUTO) 4.27 MIL/uL (4.5-6.0); WHITE BLOOD COUNT (AUTO) 3.9 K/uL (4.3-11.0)
[2020-02-14 12:25] LABS: APPEARANCE,URINE CLEAR (CLEAR); BILIRUBIN,URINE NEGATIVE (NEGATIVE); BLOOD, URINE NEGATIVE Ery/uL (NEGATIVE); COLOR,URINE YELLOW (YELLOW); KETONES,URINE NEGATIVE (NEGATIVE); LEUKOCYTE ESTERASE ,URINE NEGATIVE (NEGATIVE); NITRITE, URINE NEGATIVE (NEGATIVE); PROTEIN,URINE NEGATIVE (NEGATIVE); UGLUCOSE >=1000 mg/dL (NEGATIVE); UROBILINOGEN,URINE 0.2 EU/dL (0.2)
[2020-02-14 12:29] LABS: CREATININE 1.7 mg/dL (0.6-1.3); POTASSIUM 4.7 mmol/L (3.5-5.1)
[2020-02-14 13:14] LABS: BACTERIA,URINE None seen /HPF (None Seen); RBC,URINE NONE SEEN /HPF (0-2); SQUAMOUS EPITHELIAL CELL,UR Few /HPF (None Seen); WBC,URINE NONE SEEN /HPF (0-3)
[2020-02-14] MEDS ORDERED: INSULIN REGULAR, HUMAN 100 UNIT/ML 10 ML VIAL ONE (13:25)
[2020-02-14] MEDS ORDERED: IV NS 0.9% 1,000 ML BAG IV ONE (13:30)
[2020-02-14] MEDS ORDERED: INSULIN REGULAR, HUMAN 100 UNIT/ML 10 ML VIAL IV ONE (13:30)
--- NOTE | 2020-02-14 13:48 | NUR ---
PAGED [facility].
--- NOTE | 2020-02-14 13:49 | NUR ---
CALLED NURSING SUP FOR TELE BED.
--- NOTE | 2020-02-14 14:04 | NUR ---
UNABLE TO OBTAIN AN IV LINE ON PT, VERY HARD STICK. MD MADE AWARE. VERBAL ORDER RECEIVED TO HAVE A PICC LINE INSERTED. INSULIN 10UNIT IV TO BE GIVEN SUBCUTANEOUSLY. PT IS ALSO GIVEN AND ENCOURAGED ORAL FLUID.
[2020-02-14] MEDS ORDERED: ACETAMINOPHEN 325 MG TABLET PO PRN (15:00)
[2020-02-14] MEDS ORDERED: ONDANSETRON HCL/PF 4 MG/2 ML VIAL IVP PRN (15:00)
[2020-02-14] MEDS ORDERED: MAG HYDROX/AL HYDROX/SIMETH 30 ML UDC PO PRN (15:00)
[2020-02-14] MEDS ORDERED: Z GUARD REMEDY 2 OZ OINT TP PRN (15:00)
[2020-02-14] MEDS ORDERED: MAGNESIUM HYDROXIDE 30 ML UDC PO PRN (15:00)
--- NOTE | 2020-02-14 16:41 | NUR ---
NURSING SUP CALLED FOR ROOM
--- NOTE | 2020-02-14 16:59 | NUR ---
IS AWARE OF BP 194/105. NNO. OK TO GO UP TO UNIT
[2020-02-14] MEDS ORDERED: IV NS 0.9% 500 ML BAG IV ONE (17:00)
--- NOTE | 2020-02-14 17:17 | NUR ---
ROOM GIVEN 919
--- NOTE | 2020-02-14 17:59 | NUR ---
REPORT GIVEN TO YEFRI CURRY FOR UNRULY
[2020-02-14] MEDS: IV NS 0.9% 1,000 ML IV SCH (18:38)
[2020-02-14] MEDS: GABAPENTIN 300 MG CAPSULE PO SCH (18:39)
[2020-02-14] MEDS: BLOOD SUGAR DIAGNOSTIC 1 EACH STRIP VI SCH ×2 (18:39→21:40)
[2020-02-14] MEDS: INSULIN REGULAR, HUMAN 100 UNIT/ML 3 ML VIAL SQ PRN (18:56)
[2020-02-14] MEDS: oxyCODONE/APAP (5/325 MG) 1 UDTAB TABLET PO PRN (18:59)
--- NOTE | 2020-02-14 19:15 | NUR ---
ASSISTANT AT SURGERY NOTE RECEIVED PATIENT IN BED RESTING WITH HOB ELEVATED, WATCHING TV. PATIENT IS 69 YEAR OLD MALE OF DECENT WITH DX OF DM TYPE 2 WITH HYPEROSMOLARITY W/O NON KETOTIC HYPERGLYCE. FULL CODE, RAPID COVID NEGATIVE. PATIENT IS AWAKE, ALERT, ORIENTED X3. BREATHING IS EVEN AND UNLABORED. O2 SAT IS 99% ON ROOM AIR. LUNG SOUNDS ARE CLEAR UPON AUSCULTATION. NOTED PATIENT LEFT EYE WITH CLOUDY LEFT LENS, RIGHT EYE IS PERRLA. SKIN IS DRY AND WARM TO TOUCH. NO FEVER NOTED. TEMP IS 97.6 F AXILLARY. IV SITE ON RIGHT AC IS CLEAN, DRY, AND PATENT. NS 0.9% IS RUNNING AT 100 ML/HR. ABDOMEN IS SOFT AND NON-DISTENDED. PATIENT VERBALIZED NORMAL BOWEL MOVEMENT EVERY OTHER DAY. URINE IS CLEAR AND YELLOW IN COLOR. URINAL AT BEDSIDE. PATIENT VERBALIZED HE USES WALKER TO AMBULATE. NOTED EDEMA ON BILATERAL FEET +2. COMPLAINS OF 3/10 PAIN, THAT WENT DOWN FROM 10/10 SINCE BEEN GIVEN PAIN MED. PATIENT'S BP IS 190/109. PER AM SHIFT RN IS AWARE OF HIGH BP. ORIENTED PATIENT TO ROOM ENVIRONMENT. BED IS LOWERED AND LOCKED FOR SAFETY. CALL LIGHT IS WITHIN EASY REACH. WILL CONTINUE TO MONITOR.
--- NOTE | 2020-02-14 19:30 | NUR ---
PT ARRIVED IN ICU, ROOM 262 AT 1816. PT ALERT OX3. FOLLOWS COMMANDS, ABLE TO USE URINAL WITHOUT DIFFICULTY. HOME WHEELCHAIR AT BEDSIDE. PT WEIGHED, VS TAKEN, HOOKED UP TO MANAGED CARE LIAISON, IV FLUIDS STARTED, BLOOD SUGAR CHECKED, INSULIN GIVEN. REPORT GIVEN TO ONCOMING SHIFT.
[2020-02-14] MEDS: CARVEDILOL 12.5 MG TABLET PO SCH (20:08)
[2020-02-14] MEDS: ENOXAPARIN SODIUM 40 MG/0.4 ML DISP.SYRIN SQ SCH (20:08)
[2020-02-14] MEDS: *INSULIN REGULAR(HUMULIN R)HUM 100 UNIT/ML VIAL SQ PRN (21:44)
[2020-02-15] VITALS (22 sets, daily range): BP systolic 101–161; BP diastolic 52–96
--- NOTE | 2020-02-15 01:00 | NUR ---
RN NOTE PATIENT IS SLEEPING COMFORTABLY AT THIS TIME. VITALS WNL, NO COMPLAINTS OF ANY PAIN. WILL CONTINUE TO MONITOR.
[2020-02-15] MEDS: IV NS 0.9% 1,000 ML IV SCH ×3 (01:20→21:00)
[2020-02-15] MEDS: DEXTROSE 50%-WATER 50 ML DISP.SYRIN IV PRN ×2 (03:11→05:10)
[2020-02-15 04:43] LABS: BASOPHILS # (AUTO) 0.1 /CMM (0.0-0.2); BASOPHILS % (AUTO) 1.3 % (0.0-2.0); EOSINOPHILS % (AUTO) 2.9 % (0.0-6.0); HEMATOCRIT 39 % (39-51); HEMOGLOBIN 12.7 g/dL (13.5-17.5); LYMPHOCYTES # (AUTO) 1.6 /CMM (0.8-4.8); LYMPHOCYTES % (AUTO) 39.6 % (20.0-44.0); MEAN CORPUSCULAR HGB CONC 33 g/dl (31.0-36.0); MEAN CORPUSCULAR VOLUME 92 fL (80-96); MONOCYTES # (AUTO) 0.4 /CMM (0.1-1.30); MONOCYTES % (AUTO) 10.2 % (2.0-12.0); NEUTROPHILS # (AUTO) 1.9 /CMM (1.8-8.9); PLATELET COUNT (AUTO) 132 /CMM (150-450); RED BLOOD CELL COUNT(AUTO) 4.25 MIL/uL (4.5-6.0); WHITE BLOOD COUNT (AUTO) 4.1 K/uL (4.3-11.0)
[2020-02-15 04:50] LABS: CALCIUM, SERUM 8.9 mg/dL (8.5-10.1); CREATININE 1.1 mg/dL (0.6-1.3); MAGNESIUM 2.1 mg/dL (1.8-2.4); PHOSPHORUS 2.8 mg/dL (2.5-4.9); POTASSIUM 3.6 mmol/L (3.5-5.1)
--- NOTE | 2020-02-15 05:00 | NUR ---
RN NOTE - VALUABLES/BELONGINGS PATIENT VERBALIZED HE HAD A BLACK AND [place]RI[place] "LOGIC" CELL PHONE UPON ARRIVING TO HOSPITAL. UPON SEARCHING PATIENT'S BELONGINGS, NO CELL PHONE WAS FOUND, ONLY EMPTY BLACK CELL PHONE CASE. CALLED ER, SPOKE TO HALIE AND HE STATED THAT THERE IS NO BLACK AND [place]AVARRIA LOGIC CELL PHONE IN ER. PATIENT ALSO HAD BLACK WALLET WITH (ONE) 20 DOLLAR BILL, (TWO) 5 DOLLAR BILLS, AND (FIVE) 1 DOLLAR BILLS, (TOTALLING $35.00 IN [place]) AND A GREEN CREDIT CARD WITH LAST 4 DIGITS ENDING WITH 1311. ALSO, PATIENT HAD BLACK POCKET KNIFE AND BLUE ORE WASHER THAT IS KEPT IN BICYCLE DESIGNER'S SAFE ALONG WITH BLACK WALLET AND [place]. ENVELOPE NUMBER IS [id number]. BICYCLE DESIGNER AMBROCIO RECEIVED THE ENVELOPE AND STORED IT IN SAFE. THE REST OF PATIENT'S BELONGINGS DOCUMENTED AND PLACED IN PATIENT'S CHART.
--- NOTE | 2020-02-15 07:06 | NUR ---
RN NOTE PATIENT IS RESTING COMFORTABLY AT THIS TIME. PATIENT'S GLUCOSE DROPPED TO 56 AT 3 AM, D50 IV GIVEN ORDERED. ALSO GAVE PATIENT'S ORANGE JUICE AND SNACKS. PATIENT'S GLUCOSE LEVEL UPON RE-CHECKING IS 77. PATIENT IS RESPONSIVE TO VERBAL AND TACTILE STIMULI. PATIENT IS KEPT CLEAN, DRY, AND COMFORTABLE. WILL ENDORSE TO AM SHIFT RN FOR CONTINUATION OF CARE.
[2020-02-15] MEDS: BLOOD SUGAR DIAGNOSTIC 1 EACH STRIP VI SCH ×4 (07:50→22:57)
--- NOTE | 2020-02-15 08:00 | NUR ---
TICKET SORTER NOTE PATIENT IN BED, ALL NEEDS ATTENDED ,ALERT ORIENTED X 4 ON TELE MONITOR V PACING HR 60 , USING URINAL , RT AC HL INTACT AND FLUSHED WELL ON IVF ORDERED, BED IN LOWEST AND LOCKED POSITION , CALL LIGHT WITHIN REACH , WILL CONT TO MONITOR, NO SOB NOTED AT THIS TIME
[2020-02-15] MEDS: LEVOTHYROXINE SODIUM 75 MCG TABLET PO SCH ×2 (08:26→09:10)
[2020-02-15] MEDS: oxyCODONE/APAP (5/325 MG) 1 UDTAB TABLET PO PRN ×3 (08:34→17:05)
[2020-02-15] MEDS: INSULIN GLARGINE, 100 UNIT/ML CARTRIDGE SQ SCH (09:00)
[2020-02-15] MEDS: CARVEDILOL 12.5 MG TABLET PO SCH ×3 (09:00→20:59)
[2020-02-15] MEDS: ASPIRIN EC 81 MG TABLET.DR PO SCH (09:10)
[2020-02-15] MEDS: POTASSIUM CHLORIDE 20 MEQ TAB.PRT.SR PO SCH (09:12)
[2020-02-15] MEDS: GABAPENTIN 300 MG CAPSULE PO SCH ×3 (09:13→17:02)
--- NOTE | 2020-02-15 09:45 | NUR ---
GRAIN COMBINE DRIVER NOTES PATIENT NOTED WITH 54 AND 77. NOW 171, PATIENT WITH [address] SIMMONS NOTIFIED. STATED OK TO HOLD DOSE FOR TODAY.
--- NOTE | 2020-02-15 10:30 | NUR ---
PONY RIDE ATTENDANT NOTES PATIENT CLAIMING TELEPHONE IS STILL MISSING. UNABLE TO FIND IN THE ROOM. CHECK BELONGINGS LIST, NOT LISTED. CHARGE NURSE IN PALLETISER OPERATOR AND NURSE ASSIGNED BOTH AWARE. CALLED NURSING SQUEEGEE OPERATOR LISS, REPORTED PATIENT CLAIMING HE HAS A TELEPHONE. STATED WILL GOING TO CONTINUE TO LOOK AND INVOLVE HOUSEKEEPING DEPT. NOTIFIED PATIENT CELL PHONE IS NOT LISTED ON BELONGING LIST. SPOKE WITH CHARGE NURSE FROM ER, FARZANA. STATED HE WILL FOLLOW UP AND CHECK NURSE FROM WHO WORK YESTERDAY AND MADE BELONGING LIST. WILL CONTINUE TO CHECK.
--- NOTE | 2020-02-15 10:54 | NUR ---
DIRECTOR OF CURRICULUM AND INSTRUCTION NOTES TRANSFER PATIENT TO ROOM 320 TELE UNIT. REPORT GIVEN TO BISI ASIF AT BEDSIDE. TRANSFERRED PATIENT BY BED IN STABLE CONDITION. BY ACLS PROTOCOL.
--- NOTE | 2020-02-15 11:03 | NUR ---
TELE/RN NOTES RECEIVED REPORT FROM JONATAN ELECTRICAL MACHINIST. PATIENT V/S BP 134/72 P 66 RR 20 SAO2 99% T 98. PATIENT COMPLAINING ABOUT HIS PHONE PER JONATAN RN THERE IS NO PHONE LISTED IN THE BELONGING LIST AND JONATAN FOLLOWED UP, CORE MOUNTER IS AWARE AND ER CHARGE NURSE IS ALSO AWARE. WILL CONTINUE TO MONITOR
[2020-02-15] MEDS: INSULIN REGULAR, HUMAN 100 UNIT/ML 3 ML VIAL SQ PRN ×2 (11:41→17:07)
--- NOTE | 2020-02-15 16:08 | NUR ---
TELE/RN NOTES DR. SIMMONS ORDER MAXITROL EYE DROP EVERY 6 HOURS X 3 DAYS. NOTED AND CARRIED OUT.
--- NOTE | 2020-02-15 18:31 | NUR ---
TELE/RN CLOSING NOTES PATIENT IS ON BED. AWAKE, ALERT AND ORIENTED X4. PATIENT IN NO APPARENT RESPIRATORY DISTRESS NOTED. NO COMPLAINED OF PAIN NOTED. TELE MONITOR IN PLACED READING V- PACING 60 BPM. IV ACCESS AT LEFT FOREARM # 20 G WITH IV FLUID OF NS 1L AT 100 ML/HR ON AND INFUSING WELL. SEEN AND EXAMINED BY MD WITH ORDERS MADE AND CARRIED OUT. ALL DUE MEDICATION WAS GIVEN. SAFETY PRECAUTIONS WAS IN PLACED. BED IN LOWEST POSITION AND LOCKED. SIDERAILS UP X 2. CALL LIGHT WITH IN REACH. SITTER IS ON BEDSIDE. WILL ENDORSED TO RECOVERY AGENT FOR UNRULY.
--- NOTE | 2020-02-15 19:00 | NUR ---
PARKING TECHNICIAN OPENING NOTES: RECEIVED PATIENT IN BED, ASLEEP, AROUSABLE, URINAL AT THE BEDSIDE. PATIENT HAS OWN WHEELCHAIR AT THE BEDSIDE, A/O X4. NO S/S OF DISTRESS NOTED. NO COMPLAIN OF PAIN. CALL LIGHT WITHIN REACH. BED ALARM ON. BED IN LOWEST AND LOCKED POSITION. PATIENT COMPLAINING OF LITTLE DISCOMFORT ON BOTH EYES.
--- NOTE | 2020-02-15 20:10 | NUR ---
COMPLAINING OF DISCOMFORT ON THE LOWER LEFT SCROTUM, ASSESSED THE AREA, WITH LITTLE SKIN IRRITATION, PINKISH COLOR SKIN, PAD IS SOILED WITH URINE, BOARD CATCHER CLEANSED THE AREA WITH SOAP AND WATER APPLIED A Z-GUARD CREAM.
--- NOTE | 2020-02-15 20:22 | NUR ---
WITH BOTH EYES REDNESS.
[2020-02-15] MEDS: NEO/POLY-B/DEXAM OPHTH SUSP 5 ML BOTTLE EACHEYE SCH (21:00)
[2020-02-15] MEDS: ENOXAPARIN SODIUM 40 MG/0.4 ML DISP.SYRIN SQ SCH (21:01)
--- NOTE | 2020-02-15 21:02 | NUR ---
CURRENT IVF NS IS STILL RUNNING AT THIS TIME.
[2020-02-15] MEDS: *INSULIN REGULAR(HUMULIN R)HUM 100 UNIT/ML VIAL SQ PRN (22:54)
--- NOTE | 2020-02-15 23:00 | NUR ---
BLOOD OIPRM=800, REGULAR INSULIN 10 UNITS GIVEN, INFORMED DR PARIKH.
[2020-02-15] MEDS ORDERED: INSULIN REGULAR, HUMAN 100 UNIT/ML 10 ML VIAL SQ ONE (23:30)
[2020-02-16] VITALS: BP 118/61
[2020-02-16] MEDS: NEO/POLY-B/DEXAM OPHTH SUSP 5 ML BOTTLE EACHEYE SCH ×4 (00:47→18:22)
[2020-02-16] MEDS: IV NS 0.9% 1,000 ML IV SCH (03:30)
[2020-02-16 03:49] VITALS: BP 120/57
[2020-02-16 04:00] VITALS: BP 120/57
--- NOTE | 2020-02-16 05:11 | NUR ---
STORE RECEIVING SPECIALIST CLOSING NOTES: PATIENT IN BED, ASLEEP. AROUSABLE, CALL LIGHT WITHIN REACH. BED ALARM ON. BED IN LOWEST AND LOCKED POSITION. NO S/S OF DISTRESS NOTED. NO COMPLAIN OF PAIN. RESTED THROUGHOUT THE NIGHT.
[2020-02-16] MEDS: DEXTROSE 50%-WATER 50 ML DISP.SYRIN IV PRN (06:23)
[2020-02-16] MEDS: BLOOD SUGAR DIAGNOSTIC 1 EACH STRIP VI SCH ×3 (06:46→18:21)
--- NOTE | 2020-02-16 06:46 | NUR ---
BLOOD SUGAR=19, [id number] GIVEN IV AT 0623.. PATIENT IS SLIGHTLY LETHARGIC, RESPONSIVE. BLOOD SUGAR [id number].
--- NOTE | 2020-02-16 07:03 | NUR ---
BLOOD SUGAR RECHECKED AT 0623= 70, 2ORANGE JUICES GIVEN. PATIENT IS A/O X4.
--- NOTE | 2020-02-16 07:30 | NUR ---
RN NOTE" PT RECEIVED IN BED, EYES OPEN O2 SAT 96% NO RESPIRATORY DISTRESS OR SOB. PT A/OX4. PT ON CONSISTENT CARB DIET. PT HAS LFA IV RUNNING NS @ 100 ML/HR. NO SIGNS OF INFECTION OR INFILTRATION. PT IN BED LOCKED LOWEST POSITION. CALL LIGHT WITHIN REACH, ALL SAFETY MEASURES IN PLACE. WILL CONTINUE TO MONITOR CLOSELY
[2020-02-16 07:37] LABS: BASOPHILS % (AUTO) 1.2 % (0.0-2.0); EOSINOPHILS % (AUTO) 1.6 % (0.0-6.0); HEMATOCRIT 34 % (39-51); HEMOGLOBIN 11.3 g/dL (13.5-17.5); LYMPHOCYTES # (AUTO) 1.5 /CMM (0.8-4.8); LYMPHOCYTES % (AUTO) 40.7 % (20.0-44.0); MEAN CORPUSCULAR HGB CONC 33 g/dl (31.0-36.0); MEAN CORPUSCULAR VOLUME 92 fL (80-96); MONOCYTES # (AUTO) 0.4 /CMM (0.1-1.30); MONOCYTES % (AUTO) 10.8 % (2.0-12.0); NEUTROPHILS # (AUTO) 1.7 /CMM (1.8-8.9); NEUTROPHILS % (AUTO) 45.7 % (43.0-81.0); PLATELET COUNT (AUTO) 126 /CMM (150-450); RED BLOOD CELL COUNT(AUTO) 3.71 MIL/uL (4.5-6.0); WHITE BLOOD COUNT (AUTO) 3.6 K/uL (4.3-11.0)
[2020-02-16 07:55] LABS: CALCIUM, SERUM 8.1 mg/dL (8.5-10.1); CREATININE 1.2 mg/dL (0.6-1.3); POTASSIUM 3.7 mmol/L (3.5-5.1)
[2020-02-16 08:47] VITALS: BP 105/59
[2020-02-16] MEDS: INSULIN GLARGINE, 100 UNIT/ML CARTRIDGE SQ SCH (09:00)
--- NOTE | 2020-02-16 09:00 | NUR ---
RN NOTE: BS OF 81, INSULIN LANTUS WITHHELD. WILL CONTINUE TO MONITOR BS
[2020-02-16] MEDS: HYDROCODONE/APAP 5/325MG TABLET PO PRN ×2 (09:46→15:51)
[2020-02-16] MEDS: ASPIRIN EC 81 MG TABLET.DR PO SCH (09:47)
[2020-02-16] MEDS: GABAPENTIN 300 MG CAPSULE PO SCH ×3 (09:49→18:21)
[2020-02-16] MEDS: POTASSIUM CHLORIDE 20 MEQ TAB.PRT.SR PO SCH (09:49)
[2020-02-16] MEDS: CARVEDILOL 12.5 MG TABLET PO SCH (09:49)
[2020-02-16] MEDS ORDERED: IV NS 0.9% 1,000 ML IV SCH (10:01)
[2020-02-16 12:00] VITALS: BP 127/73
[2020-02-16] MEDS: INSULIN REGULAR, HUMAN 100 UNIT/ML 3 ML VIAL SQ PRN ×2 (12:10→17:49)
[2020-02-16 16:28] VITALS: BP 134/66
--- NOTE | 2020-02-16 18:16 | NUR ---
RN NOTE: REPORT GIVEN TO TREMAYNE ASIF AT [facility]. WILL GIVE REPORT TO SAWMILL HAND UPON ARRIVAL.
== END 2020-02-16 19:30 | DRG 640 ==
LOC: ER 10:31 → ICU 17:22 → TELE 02-15 10:21
PROVIDERS: ADMIT Internal Medicine; ATTEND Internal Medicine
DX: E87.1 Hypo-osmolality and hyponatremia (principal); E11.00 Type 2 diabetes mellitus with hyperosmolarity without nonketotic hyperglycemic-hyperosmolar coma (NKHHC); G93.41 Metabolic encephalopathy; N17.0 Acute kidney failure with tubular necrosis; D63.8 Anemia in other chronic diseases classified elsewhere; G89.4 Chronic pain syndrome; I50.9 Heart failure, unspecified; I11.0 Hypertensive heart disease with heart failure; E03.9 Hypothyroidism, unspecified; E86.1 Hypovolemia; F17.210 Nicotine dependence, cigarettes, uncomplicated; G62.9 Polyneuropathy, unspecified; I25.10 Atherosclerotic heart disease of native coronary artery without angina pectoris; I48.91 Unspecified atrial fibrillation; Z79.4 Long term (current) use of insulin; N40.1 Benign prostatic hyperplasia with lower urinary tract symptoms; E11.649 Type 2 diabetes mellitus with hypoglycemia without coma; N39.498 Other specified urinary incontinence
CPT/HCPCS: 36415; 71045-TC; 80048-TC; 81000-TC; 82962-TC; 83735-TC; 84100-TC; 85025-TC; 87081-TC; 97116-TC; 97530-TC; C9803; G0378; J1650; J1815; J7030

== ENCOUNTER 2020-03-18 14:14 | Emergency (ER) | payer OTHER ==
[~2020-03-18] VITALS: Ht 190.5 cm; Wt 72.6 kg
[~2020-03-18 14:14] MED LIST changes: -FURO20TA4 PO
--- NOTE | 2020-03-18 14:25 | NUR ---
BIBRA 878 FROM HOME C/O L HIP PAIN S/P GLF WHILE STANDING ON THE SCOOTER. PATIENT A/OX4, BREATHING EVEN AND UNLABORED, NO SOB NOTED.
[2020-03-18] MEDS ORDERED: ACETAMINOPHEN 650 MG/20.3 ML UDC PO ONE (17:00)
[2020-03-18] MEDS ORDERED: TDAP [DIPH/PERTUSSIS/TET] 0.5 ML VIAL IM ONE ×2 (17:00→17:03)
[2020-03-18] MEDS ORDERED: NEOMY SULF/BACITRAC ZN/POLY 15 GM TUBE TP SCH (17:00)
[2020-03-18] MEDS ORDERED: ACETAMINOPHEN 325 MG TABLET ONE (17:03)
[2020-03-18] MEDS ORDERED: BACITRACIN ZINC OINT PACKET 1 EA PACKET TP ONE (17:03)
--- NOTE | 2020-03-18 17:19 | NUR ---
[facility] B[facility] ETA 2000.
--- NOTE | 2020-03-18 17:33 | NUR ---
PATIENT PROVIDED FOOD TRAY.
--- NOTE | 2020-03-18 20:20 | NUR ---
NOEMI AT BED SIDE TO ASSISTANT ASSOCIATE PROFESSOR THE PT. REPORT GIVEN.
[2020-03-18 20:22] VITALS: BP 155/79
--- NOTE | 2020-03-18 20:29 | NUR ---
PT WAS PICKED UP BY NOEMI DYER AND DISCHARGED HOME IN STABLE CONDITION.Patient discharged to home in stable condition. Written and verbal after care instructions given. Patient verbalizes understanding of instruction.
== END 2020-03-18 20:30 | disposition home or self-care (01) ==
LOC: ER 14:20
DX: S70.02XA Contusion of left hip, initial encounter (principal); S80.02XA Contusion of left knee, initial encounter; G89.29 Other chronic pain; M16.12 Unilateral primary osteoarthritis, left hip; I11.0 Hypertensive heart disease with heart failure; I50.9 Heart failure, unspecified; D63.8 Anemia in other chronic diseases classified elsewhere; E11.9 Type 2 diabetes mellitus without complications; E03.9 Hypothyroidism, unspecified; I25.10 Atherosclerotic heart disease of native coronary artery without angina pectoris; D69.6 Thrombocytopenia, unspecified; F17.200 Nicotine dependence, unspecified, uncomplicated; Z95.0 Presence of cardiac pacemaker; Z98.890 Other specified postprocedural states; Z79.899 Other long term (current) drug therapy; Z79.84 Long term (current) use of oral hypoglycemic drugs; Z79.82 Long term (current) use of aspirin; W05.1XXA Fall from non-moving nonmotorized scooter, initial encounter; Y93.89 Activity, other specified; Y92.89 Other specified places as the place of occurrence of the external cause; Y99.8 Other external cause status
CPT/HCPCS: 70450-TC; 73502; 73564-TC; 73700-TC; 90715